=== PATIENT | female | born 1995 | race Caucasian/White ===

== ENCOUNTER → 2017-07-13 10:43 | Outpatient (CLI) | payer OTHER, SELFPAY ==
[2017-07-13 13:05] LABS: Amphetamine Urine VISTA NEGATIVE (<1000 ng/mL); Barbiturate Urine VISTA NEGATIVE (< 200 ng/mL); Benzodiazepine Urine VISTA NEGATIVE (< 200 ng/mL); Cocaine Urine VISTA NEGATIVE (< 300 ng/mL); Ecstacy Urine VISTA NEGATIVE (< 500 ng/mL); Methadone Urine VISTA NEGATIVE (< 300 ng/mL); PCP Urine VISTA NEGATIVE (< 25 ng/mL); THC Urine VISTA NEGATIVE (< 50 ng/mL); Vista UDS pH Range 6
== END ==
PROVIDERS: Family Provider Family Medicine; PCP Family Medicine; Visit Provider Family Medicine
DX: Z02.83 Encounter for blood-alcohol and blood-drug test (principal)
CPT/HCPCS: 80307

== ENCOUNTER → 2018-04-15 16:43 | Outpatient (CLI) | payer BC, SELFPAY ==
--- NOTE | 2018-04-15 16:47 | CT_ITS ---
STUDY: CT ABDOMEN AND PELVIS WITH CONTRAST REASON FOR EXAM: Female, 23 years old. Pain, lump in abdominal abdomen near the umbilicus. Diarrhea. Family history of stomach cancer. RADIATION DOSAGE (If Supplied By Facility): CTDIvol = ( 8.76 ) mGy, DLP = ( 279.28 ) mGycm TECHNIQUE: Transaxial 3.75 mm images were obtained from the dome of the diaphragm to the symphysis pubis with oral contrast. 100 ml of Isovue 300 contrast was administered. Sagittal and coronal images were reconstructed. Individualized dose optimization techniques were used for this CT. COMPARISON: Limited abdominal ultrasound 07/16/2015 FINDINGS: The visualized lung bases are unremarkable. The visualized portions of the heart are within normal limits. There is a left paraumbilical midline anterior abdominal wall lipoma of 1.2 x 3.9 x 2.7 cm causing a convex wall of the abdomen. This is superior to the umbilicus. Normal liver. Normal gallbladder and extrahepatic biliary system. Normal spleen. Normal pancreas. Normal bilateral adrenal glands. Normal right kidney. Normal left kidney. Normal visualized stomach. Normal small intestine. Normal colon. The appendix is visualized and appears normal. Normal abdominal aorta. Normal inferior vena cava. Normal retroperitoneum. Normal urinary bladder. There is a low-attenuation in the right vaginal wall likely a cyst with bilobed contour measuring 1.1 x 1.3 x 2.3 cm. Otherwise normal abdominal wall. Normal osseous structures. CT/Abdomen/Pelvis WITH Contrast IMPRESSION: Lipoma of the anterior left para midline supraumbilical abdominal wall with convex contour. No evidence of malignancy. There is a vaginal cyst. Electronically Signed: Aye Knox MD at 7:06 EST , Service support ,
--- OUTSIDE RECORDS SUMMARY | 2018-05-28 16:04 | XMS RPT_ITS ---
:1995 Author Organization OH[facility] Care Team Providers Name Role Phone Adilene Alegria Attending Unavailable Adilene Alegria Referring Unavailable MalPhu draper Primary Care Unavailable DOCTOR, OUT OF TOWN Attending Unavailable Phu Figueroa Primary Care Unavailable Phu Figueroa Attending Unavailable Malys, Phu Primary Care Unavailable Malbonny, Phu Attending Unavailable Malys, Phu Referring Unavailable Malys, Phu Primary Care Unavailable KathiAdilene wills Attending Unavailable Malys, Phu Referring Unavailable PROBLEMS PROBLEMS DATE TYPE CONDITION / CODE ATTENDING STATUS SOURCE 04/29/2018 Unknown Z12.4 - Encounter Marcpearl, Active [place] for screening for [facility] malignant neoplasm Hospital of cervix / Repository Z12.4(ICD-10) 04/29/2018 Unknown A64 - Unspecified Marcanthony, Active [place] sexually [facility] transmitted disease Hospital / A64(ICD-10) Repository 04/29/2018 Unknown Z01.419 - Encounter Marcanthjohann, Active [place] for gynecological [facility] examination [facility] (general) (routine) Repository without abnormal findings / Z01.419(ICD-10) 05/06/2018 Unknown R10.9 - Unspecified Malbonny, Phu Active [place] abdominal pain / Community R10.9(ICD-10) Hospital Repository 07/13/2017 Unknown Z02.83 - Encounter Henry, Phu Active [place] for blood-alcohol Community and blood-drug test Hospital / Z02.83(ICD-10) Repository PROCEDURES PROCEDURES No Procedure Records FoundRESULTS RESULTS EQUITIES TRADER OFFICE VISIT Observed: 04/29/2018 Status: F Source: [place] REPORT 10:27 AM [facility] REPOSITORY [facility] [address] [place] [address]. [address] [place] [address] OFFICE VISIT Date of Service: 04/29/18 MR#: [id number] Acct: [id number] Name: ROBBYRAFAT SYKESLeonor Dyer Rep #: [id number] : 1995 Provider: Adilene Alegria MD Age/Sex: 23/F Location: [facility] Status: Signed Intake Vital Signs04/29/18 Height 5 ft 5 in 04/29/18 Weight: 118 lb 04/29/18 Body Mass Index (BMI) 19.6 04/29/18 Blood Pressure 108/62 Intake Visit Reasons: ANNUAL Nut Feeder Required: No Is patient in pain?: No Allergies Penicillins Allergy (Verified 04/29/18 09:48) Rash Medications Multivitamins,Therapeutic [Multivitamin] 1 tab PO DAILY 08/25/14 [History Confirmed 04/29/18] norgestimate 0.25 mg-ethinyl estradiol 35 mcg tablet 1 tab PO DAILY #84 tab 04/29/18 [Rx Confirmed 04/29/18] propranolol 10 mg tablet 10 mg PO .prn tab 04/29/18 [History Confirmed 04/29/18] sertraline 25 mg tablet 25 mg PO DAILY 04/29/18 [History Confirmed 04/29/18] Is last menstrual period known: Yes Last Menstral Period: 04/08/18 Post menopausal: No Patient : No : No Nurse's Note: Pt. states she had a CAT scan done and it showed a vaginal cyst. [facility] Medical History Anxiety (Acute) Lymphoma (Acute) Family History Mother Cancer Stomach Social History Smoking Status: Never smoker HPI ANNUAL: Details: YAIR MCCULLOUGH is a 23 year old who presents for annual exam. 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 Last PAP: none History of abnormal PAP: no Last mammogram: History of abnormal mammogram: Colon cancer screening: Other preventative health care screenings: phu figueroa pcp Female Reproductive History Last Menstral Period: 04/08/18 Cycle Length: 21-35 Bleeding Duration: 5 Questions: Metorrhagia: No, Sexually active: Yes, Dyspareunia: No, PCB: No ROS Const Constitutional: Reports as per HPI; denies poor appetite, fatigue, increased appetite, weight gain or weight loss Cardio Card: Denies chest pain Resp Resp: Denies dyspnea or cough GI GI: Reports as per HPI; denies bloating, abdominal pain, constipation, vomiting or nausea : Reports as per HPI and other; denies blood in urine, vaginal odor, vaginal itching, vaginal dryness, vaginal discharge, urinary urgency, urinary incontinence, urinary frequency, pelvic pain, painful urination, difficulty urinating, prolapse symptoms or nipple discharge Skin Skin/Breast: Denies breast pain, breast skin changes, nipple discharge, breast lump or changing lesions Exam Const General: cooperative, healthy appearing, comfortable, no acute distress, well developed, well groomed HENIL Head: normal to inspection, normocephalic Ears: hearing grossly normal bilaterally, external ears normal Nose: external nose normal Face and sinus: normal facial exam Neck Neck: normal visual inspection, full ROM, no lymphadenopathy Thyroid: thyroid normal Chest Chest palpation AND inspection: normal inspection of the chest Breast inspection: normal inspection of the breasts, normal inspection of the axillae Breast palpation: normal palpation of the breasts, normal palpation of the axillae, no axillary lymphadenopathy Resp Effort AND Inspection: normal respiratory effort GI Inspection: normal to inspection, non-distended Palpation: no guarding, soft, no hepatosplenomegaly General: bladder normal to palpation External Female Exam: normal external appearance, normal appearance of the urethra, no lesions Urethra: normal appearance of the urethra, normal palpation Speculum Exam - Vagina: normal appearance of the vagina, normal vaginal discharge Speculum Exam - Cervix: normal appearance of the cervix, no cervical discharge, no lesions, nontender Bimanual Exam- Vagina AND Uterus: No cervical tenderness, normal bimanual exam, uterine size normal, bladder normal to palpation, uterine mobility normal, uterine consistency normal, uterus non-tender, no cervical motion tenderness Bimanual Exam- Adnexa, other: normal adnexae, no adnexal masses, adnexae non-tender Skin General: no rashes or lesions noted Neuro General: alert, moves all extremities, no focal motor deficits Extrem General: no pedal edema, normal to inspection Psych Appearance: grossly normal Mental Status: mental status grossly normal Affect: normal affect Speech and Movement: speech and movement normal Attitude: cooperative Assessment AND Plan Problems 1. Encounter for gynecological examination without abnormal finding Z01.419 Plan Cervical cancer screening: pap Breast cancer screening: clinical STD prevention and contraceptive options including their risks, benefits, and alternatives were reviewed with the patient and she chooses: gc chlamydia Encouraged maintenance of a healthy weight and active lifestyle and handout given. Calcium/vitamin D recommendations provided. Annual exam handout including recommendations for good health guidelines and basic screening information given. Problem list up to date, see problem list details for any additional plan information. follow up in one year for annual health maintenance exam or sooner if needed. Medications Refilled: Coding Level of Care Code Off vis,new,prev 18-39yrs Diagnoses Encounter for gynecological examination without abnormal finding Z01.419 Gynecological examination findings: abnormal findings ABSENT 04/29/18 1027 <Electronically signed by Adilene Alegria MD> Date [facility]leg[facility] Signature: Date (if applicable) CC: PAP I-G W/RFX Collected: 04/29/2018 Status: F Source: [place] HRHPV-APTIMA 9:30 AM [facility] REPOSIT[facility] Order Comment: CYTOLOGY INFORMATION: - CLINICAL INFORMATION: ANNUAL - DATE LMP/MENOPAUSE: N/A - COLLECTION VIAL: Thin Prep Vial - 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 of containers..01 ThinPrep Vial TYPE CODE TESTS RESULT OUT OF RANGE REFERENCE UNITS LAB L7400.0800 . Normal DIAGN Comment Result Comment: NEGATIVE FOR INTRAEPITHELIAL LESION AND MALIGNANCY. LAB L7400.0900 . Normal ADEQ Comment Result Comment: Satisfactory for evaluation. No endocervical component is identified. LAB L7400.1400 . Normal PERFORM Comment Result Comment: Stephie Davalos, Material Disposition Inspector (ASCP) LAB L7400.2575 . Normal TEST METHOD Comment Result Comment: This liquid based ThinPrep(R) pap test was screened with the use of an image guided system. LAB L7400.2600 . Normal . COMM LAB L7400.2700 . Normal PAPSMR Comment Result Comment: The Pap smear is a screening test designed to aid in the detection of premalignant and malignant conditions of the uterine cervix. It is not a diagnostic procedure and should not be used as the sole means of detecting cervical cancer. Both false-positive and false-negative reports do occur. LAB L7400.2800 . Normal HPV RFLX Comment Result Comment: The HPV DNA reflex criteria were not met with this specimen result therefore, no HPV testing was performed. Performed at: [facility] [id number] Procurement Consultant: Cristal Guillory MD, Phone: [phone] Performed By: #### L7400.0353 #### [facility] (refer to report for specific site) refer to report for address and phone number CT/NG [facility] BY PCR Collected: 04/29/2018 Status: F Source: [place] 12:00 AM [facility]POSIT[facility] TYPE CODE TESTS RESULT OUT OF RANGE REFERENCE UNITS LAB L8200.2100 Negative Normal Chlam Negative Trac PCR LAB L8200.2200 Negative Normal NG by Negative PCR Performed By: #### L8200.1999 #### [facility] [address] [place], [address] ABDOMEN/PELVIS WITH Observed: 04/15/2018 Status: F Source: [place] CONTRAST 4:47 PM [facility] RE[facility]IT[facility] [address] [place] [address] Abdomen/Pelvis WITH Contrast MR#: [id number] Acct: [id number] Name: YAIR MCCULLOUGH Rep #: [id number] : 1995 F 23 From: Aye Knox MD PCP: Phu Figueroa DO Status: REG CLI Study: Abdomen/Pelvis WITH Contrast Date of Exam: 04/15/18 Exam# [id number] Ordering Dr: Phu Figueroa DO STUDY: CT ABDOMEN AND PELVIS WITH CONTRAST REASON FOR EXAM: Female, 23 years old. Pain, lump in abdominal abdomen near the umbilicus. Diarrhea. Family history of stomach cancer. RADIATION DOSAGE (If Supplied By Facility): CTDIvol = ( 8.76 ) mGy, DLP = ( 279.28 ) mGycm TECHNIQUE: Transaxial 3.75 mm images were obtained from the dome of the diaphragm to the symphysis pubis with oral contrast. 100 ml of Isovue 300 contrast was administered. Sagittal and coronal images were reconstructed. Individualized dose optimization techniques were used for this CT. COMPARISON: Limited abdominal ultrasound 07/16/2015 FINDINGS: The visualized lung bases are unremarkable. The visualized portions of the heart are within normal limits. There is a left paraumbilical midline anterior abdominal wall lipoma of 1.2 x 3.9 x 2.7 cm causing a convex wall of the abdomen. This is superior to the umbilicus. Normal liver. Normal gallbladder and extrahepatic biliary system. Normal spleen. Normal pancreas. Normal bilateral adrenal glands. Normal right kidney. Normal left kidney. Normal visualized stomach. Normal small intestine. Normal colon. The appendix is visualized and appears normal. Normal abdominal aorta. Normal inferior vena cava. Normal retroperitoneum. Normal urinary bladder. There is a low-attenuation in the right vaginal wall likely a cyst with bilobed contour measuring 1.1 x 1.3 x 2.3 cm. Otherwise normal abdominal wall. Normal osseous structures. CT/Abdomen/Pelvis WITH Contrast IMPRESSION: Lipoma of the anterior left para midline supraumbilical abdominal wall with convex contour. No evidence of malignancy. There is a vaginal cyst. Electronically Signed: Aye Knox MD at 7:06 EST , Service support , CC: Phu Figueroa DO Record Maker: Signed URINE DRUG SCREEN Collected: 07/13/2017 Status: F Source: CAR[place] (STEPH) 10:46 AM [facility] Order Comment: List of Drugs Taken or Suspected? [facility] TYPE CODE TESTS RESULT OUT OF RANGE REFERENCE UNITS LAB L505.0075 TO BE Normal CONFIRMED Result Comment: CONFIRMATORY TESTING FOR ALL POSITIVE URINE DRUG SCREEN RESULTS WILL ONLY BE SENT OUT UPON PHYSICIAN ORDER. VISTA Urine Drug Screen methods provide only preliminary analytical test results. A more specific alternate chemical method must be used in order to obtain a confirmed analytical result. Gas chromatography/mass spectrometery (GC/MS) is the preferred confirmatory method. Clinical consideration and professional judgement should be applied to any drug of abuse test result, particularly when preliminary positive results are used. URINE TCA TESTING MUST BE ORDERED SEPARATELY. USE TEST MNEMONIC: [facility] LAB L505.5005 VISTA UDS PH 6 Normal LAB L505.5015 <1000 ng/mL AMPHETAMINES Normal NEGATIVE LAB L505.5025 < 200 ng/mL BARBITIURATES Normal NEGATIVE LAB L505.5035 < 200 ng/mL BENZODIAZIPINE Normal NEGATIVE LAB L505.5045 < 300 ng/mL COCAINE Normal NEGATIVE LAB L505.5055 < 500 ng/mL ECSTACY Normal NEGATIVE LAB L505.5065 < 300 ng/mL METHADONE Normal NEGATIVE LAB L505.5075 < 300 ng/mL OPIATES Normal NEGATIVE LAB L505.5085 < 25 ng/mL PCP Normal NEGATIVE LAB L505.5095 < 50 ng/mL THC Normal NEGATIVE Performed By: #### L505.5000 #### [facility] [place], [address] OBSOLETE Observed: 05/10/2017 Status: COMPLETED Source: [place] 12:00 AM [facility] REPOSITORY Refill (WOOB) YAIR MCCULLOUGH ([id number]) 1995 F Date Time Provider Department 05/10/17 CURT THOMPSON ([place]) [facility]ST During your visit today, we recorded the following information about you: Michelle Hill LPN 05/10/2017 2:45 PM Signed Pt's mother calling and reporting that she needs an updated script for her daughter's ocp [facility]. When pt was in last visit the rx was sent to a local pharmacy. Pt needing a 90d supply please review and advise. Michelle THOMPSON CNP 05/10/2017 3:42 PM Signed Order sent Allergies As of Date: 05/10/2017 Noted Allergy Reaction PENICILLINS 07/11/2013 4 - Hives SEASONAL ALLERGIES 07/11/2013 14 - Other: See Comments Comments: Nasal congestion Date Reviewed: 11/23/2016 Reviewed by: Johanne Vail) Rocio - Fully Assessed Reason for Visit: Refill Request [94] Visit Diagnosis:General counseling for prescription of oral contraceptives [Z30.09] Order(s):norgestimate 0.25 mg-ethinyl estradiol 35 mcg (SPRINTEC) 0.25-35 mg-mcg per tabletTake 1 tablet by mouth once daily.Disp: 3 PackageRfl: 3 Prescriptions as of 05/10/2017 Sig: NORGESTIMATE 0.25 MG-ETHINYL * Take 1 tablet by mouth once d* MULTIVITAMIN ORAL Take by mouth. ZYRTEC ORAL Take by mouth. LORAZEPAM 1 MG TABLET Take one tab 30 minutes prior* Problem List As Of Date 05/10/2017 Noted Resolved Breast lump [N63.0] INVALID FOR*11/23/2016 Prescriptions ordered this encounter Disp Refills Start End NORGESTIMATE 0.25 MG-ETHINYL ESTRADI* 3 Pa* 3 05/10/2017 Route: ORAL Sig: Take 1 tablet by mouth once daily. Medications Discontinued During This Encounter norgestimate 0.25 mg-ethinyl estradi* 3 Pa* 3 11/23/2016 05/10/2017 Route: ORAL Sig: Take 1 tablet by mouth once daily. Disc: Reason for discontinue is not on file. Encounter Status:Closed by CURT THOMPSON on 05/10/17 ALLERGIES ALLERGIES DATE TYPE / CODE NAME / CODE REACTION SEVERITY SOURCE 04/29/2018 Drug Penicillins/ Rash Unknown [facility] Allergy/4160 [id number](R Hospital [address](SNOMED XNORM) Repository CT) ENCOUNTERS ENCOUNTERS ADMIT/DISCHARGE ACCOUNT ADMITTING ENCOUNTER LOCATION SOURCE NUMBER CLASS 04/29/2018 [id number] Ambulatory [place] 0 [facility] ing:LABSPEC Repository 04/29/2018/ [id number] Ambulatory BMSBuilding:B [place] 8 5 MS.[facility] Repository 04/15/2018 [id number] Ambulatory [place] 2 [facility] ing:CT Repository 03/25/2018 [id number] Ambulatory [place] 8 [facility] ing:MASS Repository 07/13/2017 [id number] Ambulatory [place] 7 [facility] ing:BFHLAB Repository PAYERS PAYERS ENCOUNTER GUARANTOR PAYER SUBSCRIBER SOURCE 04/29/2018 YAIR BUSTAMANTERERDOB: [place] [id number] [id number] Number: [place], [place] [id number] Repository [address]Mxw: [phone]) Date:[id number] [phone] () [address], [place] [address]NT: 04/29/2018 Secondary NOT GIVENUNK [place] Insurance:SELF PAY [facility] Number: Effective Repository Date:2018-04-29 04/29/2018 YAIR Dyer Primary RHINA ZERRERDOB: [place] [id number] Insurance:[employer]HE[employer]olic [id number] Number: [place], [place] [id number] Repository [address]Czm: [phone]) Date:[id number] [phone] () [place], [place] [address]EK: 04/29/2018 Secondary NOT GIVENUNK [place] Insurance:SELF PAY [facility] Number: Effective Repository Date:2018-04-29 04/15/2018 YAIR Dyer Primary RHINA L [place] [id number] Insurance:[place] PPO ZERRERDOB: [facility] Number: [id number] [id number] Repository [address]Mxq: ([phone]) Date:2018-04-01.O. [phone] () [address] GYPSY [address]HB: 04/15/2018 Secondary NOT GIVENUNK [place] Insurance:SELF PAY [facility] Number: Effective Repository Date:2018-04-01 03/25/2018 YAIR Dyer Primary NOT GIVENUNK [place] [id number] Insurance:SELF PAY [place] Number: Effective Repository [phone]: ([phone]) Date:2016-05-18 [phone] () 07/13/2017 Rhina L Primary Rhina L [place] [id number] Insurance:[place] PPO ZerrerDOB: [facility] Number: [id number] [id number] Repository [address]Sao: [phone]) Date:2017-07-13P.O. [phone] (HP) [address] GYPSY [address]CH: 07/13/2017 Secondary NOT GIVENUNK [place] Insurance:SELF PAY [facility] Effective Repository Date:2017-07-13
== END ==
PROVIDERS: Family Provider Family Medicine; PCP Family Medicine; Referring Provider Family Medicine; Visit Provider Family Medicine
DX: R10.9 Unspecified abdominal pain (principal); R10.2 Pelvic and perineal pain; R19.05 Periumbilic swelling, mass or lump; R19.7 Diarrhea, unspecified
CPT/HCPCS: 74177; Q9967

== ENCOUNTER → 2018-04-29 17:10 | Outpatient (CLI) | payer BC, SELFPAY ==
[2018-04-29 09:47] VITALS: BMI 19.6
[2018-04-29 20:19] LABS: Chlamydia Trachomatis by PCR Negative (Negative); Neisserai gonorrhoeae by PCR Negative (Negative); Probe Check PASS; Sample Adequacy Control PASS; Specimen Processing Control PASS
[2018-05-01 15:39] LABS: HPV Reflexed? NOT INDICATED
--- OUTSIDE RECORDS SUMMARY | 2018-06-16 02:22 | XMS RPT_ITS ---
:1995 Author Organization OHIP Care Team Providers Name Role Phone Adilene Alegria Attending Unavailable Adilene Alegria Referring Unavailable MalPhu draper Primary Care Unavailable DOCTOR, OUT OF TOWN Attending Unavailable Phu Sweeney Primary Care Unavailable Phu Sweeney Attending Unavailable Malys, Phu Primary Care Unavailable Malbonny, Phu Attending Unavailable Malys, Phu Referring Unavailable Malys, Phu Primary Care Unavailable KathiAdilene wills Attending Unavailable Malys, Phu Referring Unavailable PROBLEMS PROBLEMS DATE TYPE CONDITION / CODE ATTENDING STATUS SOURCE 04/29/2018 Unknown Z12.4 - Encounter Marcpearl, Active [place] for screening for [facility] malignant neoplasm Hospital of cervix / Repository Z12.4(ICD-10) 04/29/2018 Unknown A64 - Unspecified Marcanthony, Active [place] sexually [facility] transmitted disease Hospital / A64(ICD-10) Repository 04/29/2018 Unknown Z01.419 - Encounter Marcanthjohann, Active [place] for gynecological [facility] examination [facility] (general) (routine) Repository without abnormal findings / Z01.419(ICD-10) 05/08/2018 Unknown R10.9 - Unspecified Malbonny, Phu Active [place] abdominal pain / Community R10.9(ICD-10) Hospital Repository 07/13/2017 Unknown Z02.83 - Encounter Henry, Phu Active [place] for blood-alcohol Community and blood-drug test Hospital / Z02.83(ICD-10) Repository PROCEDURES PROCEDURES No Procedure Records FoundRESULTS RESULTS 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 [address] [place] [address] OFFICE VISIT Date of Service: 04/29/18 MR#: [id number] Acct: [id number] Name: ROBBYONELYAIR M Rep #: [id number] : 1995 Provider: Adilene Algeria MD Age/Sex: 23/F Location: [facility] Status: Signed Intake Vital Signs04/29/18 Height 5 ft 5 in 04/29/18 Weight: 118 lb 04/29/18 Body Mass Index (BMI) 19.6 04/29/18 Blood Pressure 108/62 Intake Visit Reasons: ANNUAL Internet Sales Director Required: No Is patient in pain?: No [...] done and it showed a vaginal cyst. [facility] Medical History Anxiety (Acute) Lymphoma (Acute) Family History Mother Cancer Stomach Social History Smoking Status: Never smoker HPI ANNUAL: Details: YAIR MCCULLOUGH is a 23 year old who presents for annual exam. 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 Last PAP: none History of abnormal PAP: no Last mammogram: History of abnormal mammogram: Colon cancer screening: Other preventative health care screenings: phu sweeney pcp Female Reproductive History Last Menstral Period: [...] no acute distress, well developed, well groomed HENDC Head: normal to inspection, normocephalic Ears: hearing [...] Adilene Alegria MD> Date [facility] Signature: Date (if applicable) CC: PAP I-G W/RFX Collected: 04/29/2018 Status: F Source: CARMEN HRHPV-APTIMA 9:30 AM [facility] REPOSITORY Order Comment: CYTOLOGY INFORMATION: - CLINICAL INFORMATION: ANNUAL - DATE LMP/MENOPAUSE: N/A - COLLECTION VIAL: Thin Prep Vial - 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 of containers..01 ThinPrep Vial TYPE CODE TESTS RESULT OUT OF RANGE REFERENCE UNITS LAB L7400.0800 . Normal DIAGN Comment Result Comment: NEGATIVE FOR INTRAEPITHELIAL LESION AND MALIGNANCY. LAB L7400.0900 . Normal ADEQ Comment Result Comment: Satisfactory for evaluation. No endocervical component is identified. LAB L7400.1400 . Normal PERFORM Comment Result Comment: Stephie Davalos, Administrative Services Coordinator (ASCP) LAB L7400.2575 . Normal TEST METHOD [...] no HPV testing was performed. Performed at: [facility] [id number] Hydrologist: Cristal Guillory MD, Phone: [phone] Performed By: #### L7400.0353 #### [facility] (refer to report for specific site) refer to report for address and phone number CT/NG [facility] BY PCR Collected: 04/29/2018 Status: F Source: CARMEN 12:00 AM [facility] REPOSITORY TYPE CODE TESTS RESULT OUT OF RANGE REFERENCE UNITS LAB L8200.2100 Negative Normal Chlam Negative Trac PCR LAB L8200.2200 Negative Normal NG by Negative PCR Performed By: #### L8200.1999 #### [facility] [address] [place], [address] ABDOMEN/PELVIS WITH Observed: 04/15/2018 Status: F Source: [place] CONTRAST 4:47 PM [facility] REPOSITORY [facility] Imaging Services [address] [place] [address] Abdomen/Pelvis WITH Contrast MR#: [id number] Acct: [id number] Name: YAIR MCCULLOUGH Rep #: [id number] : 1995 F 23 From: Aye Knox MD PCP: Phu Sweeney DO Status: REG CLI Study: Abdomen/Pelvis WITH Contrast Date of Exam: 04/15/18 Exam# [id number] Ordering Dr: Phu Sweeney DO STUDY: CT ABDOMEN AND PELVIS WITH [...] EST , Service support , CC: Phu Sweeney DO Dynamite Reclaimer: Signed URINE DRUG SCREEN Collected: 07/13/2017 Status: F Source: CARMEN (STEPH) 10:46 AM [facility] REPOSITORY Order Comment: List of Drugs Taken or Suspected? [facility] TYPE CODE TESTS RESULT OUT OF RANGE [...] Normal NEGATIVE Performed By: #### L505.5000 #### [facility] [address] [place], [address] ALLERGIES ALLERGIES DATE TYPE / CODE NAME / CODE REACTION SEVERITY SOURCE 04/29/2018 Drug Penicillins/ Rash Unknown [facility] Allergy/4160 [id number](R Hospital 88480(SNOMED XNORM) Repository CT) ENCOUNTERS ENCOUNTERS ADMIT/DISCHARGE ACCOUNT ADMITTING ENCOUNTER LOCATION SOURCE NUMBER CLASS 04/29/2018 [id number] [place]ulatory [place] 0 [facility] ing:LABSPEC Repository 04/29/2018/ [id number] Ambulatory BMSBuilding:B [place] 8 [address] [facility] Repository 04/15/2018 [id number] Ambulatory [place] 2 [facility] ing:CT Repository 03/25/2018 [id number] Ambulatory [place] 8 [facility] ing:MASS Repository 07/13/2017 [id number] Ambulatory [place] 7 [facility] ing:BFHLAB Repository PAYERS PAYERS ENCOUNTER GUARANTOR PAYER SUBSCRIBER SOURCE 04/29/2018 YAIR Dyer Primary RHINA ZERRERDOB: [place] [id number] Insurance:ANTHEMPolic [id number] [facility] Number: [place], [place] [id number] Repository [address]Roc: (330) Date:8017-11-87AO [phone] () [id number], [place] [address]HM: 04/29/2018 Secondary NOT GIVENUNK [place] Insurance:SELF PAY [facility] Number: Effective Repository Date:2018-04-29 04/29/2018 YAIR Dyer Primary RHINA ZERRERDOB: [place] [id number] Insurance:ANTHEMPolic [id number] Community [facility] y Number: [place], [place] [id number] Repository [address]Sil: (330) Date:0134-77-23SN [phone] () [id number] [place] [address]: 04/29/2018 Secondary NOT GIVENUNK [place] Insurance:SELF PAY [facility] Number: Effective Repository Date:2018-04-29 04/15/2018 YAIR Dyer Primary RHINA L [place] [id number] Insurance:ANTHEMPolic ZERRERDOB: [facility] [place] y [id number] [id number] Repository [address]Ydj: (330) Date:3908-33-30XS [phone] () [id number], [place] [address]HC: 04/15/2018 Secondary NOT GIVENUNK [place] Insurance:SELF PAY [facility] Number: Effective Repository Date:2018-04-01 03/25/2018 YAIR Dyer Primary NOT GIVENUNK [place] [id number] Insurance:SELF PAY [place] Number: Effective Repository [phone]: (330) Date:2016-05-18 [phone] () 07/13/2017 Rhina L Primary Rhina L [place] [id number] Insurance:OHIO PPO ZerrerDOB: [facility] Number: [id number] [id number] Repository [address]Qwn: (330) Date:2017-07-13[address] [phone] () [address] SID [id number]: 07/13/2017 Secondary NOT GIVENUNK [place] Insurance:SELF PAY [facility] Number: Effective Repository Date:2017-07-13
== END ==
PROVIDERS: Family Provider Family Medicine; PCP Family Medicine; Referring Provider Obstetrics & Gynecology; Visit Provider Obstetrics & Gynecology
DX: A64 Unspecified sexually transmitted disease (principal); Z12.4 Encounter for screening for malignant neoplasm of cervix
CPT/HCPCS: 87491; 87591; 87624; 88175; G0145

== ENCOUNTER → 2019-01-14 | Outpatient (CLI) | payer BC, SELFPAY ==
[2018-08-09 06:19] VITALS: BMI 19.6
== END | disposition home or self-care (01) ==
LOC: PSN 13:50
PROVIDERS: Family Provider Family Medicine; PCP Family Medicine; Referring Provider Family Medicine; Visit Provider Family Medicine
DX: R00.2 Palpitations (principal)
CPT/HCPCS: 93225; 93226

== ENCOUNTER 2019-10-07 10:07 | Day surgery (SDC) | payer BC, SELFPAY ==
--- NOTE | 2019-10-01 02:44 | HP_ITS ---
Intake Vital Signs 10/01/19 Height 5 ft 5 in 10/01/19 Weight: 126 lb 10/01/19 BMI 20.9 10/01/19 BP 137/77 H 10/01/19 Blood Pressure Location Rt brachial 10/01/19 Position Sitting 10/01/19 Respiration 16 Intake Visit Reasons: ABDOMINAL LIPOMA Chief Complaint: Right eye redness Mcat Instructor Required: No Is patient in pain?: No Allergies Penicillins Allergy (Verified 10/01/19 14:35) Rash Medications Multivitamins,Therapeutic [Multivitamin] 1 tab PO DAILY 08/25/14 [History Confirmed 10/01/19] propranolol 10 mg tablet 10 mg PO .prn tab 04/29/18 [History Confirmed 10/01/19] sertraline 25 mg tablet 25 mg PO DAILY 04/29/18 [History Confirmed 10/01/19] polymyxin B sulfate 10,000 unit-trimethoprim 1 mg/mL eye drops 1 drp OPHTHALMIC Q3H #5 ml 08/09/18 [Rx Confirmed 10/01/19] norgestimate 0.25 mg-ethinyl estradiol 35 mcg tablet 1 tab PO DAILY #84 tab 06/11/19 [Rx Confirmed 10/01/19] PFSH Medical History Anxiety (Acute) Back pain (Acute) Chest pain (Acute) Hemorrhoids (Acute) Lymphoma (Acute) Neck pain (Acute) Shoulder pain (Acute) Surgical History History of breast biopsy (Acute) Family History Mother Cancer stomach cancer Social History (Updated 10/01/19 @ 16:[address] Colby Adair MD) Smoking Status: Never smoker alcohol intake: current details: social substance use type: does not use caffeine: Yes what type of physical activity do you participate in: walking seatbelt use: always do you feel safe at home: Yes additional social history: [employer] Patient works at [employer] HPI HPI HPI: YAIR MCCULLOUGH, is a 24 F who presents to the office today for HPI HPI Surgical H&P: Yes HPI: YAIR MCCULLOUGH, is a 24 F who presents to the office today for Painful lump on her abdominal wall. Patient has had a subcutaneous lesion superior and lateral to her umbilicus area for many years. It is been increasing in size and has been giving her more discomfort. She cannot recall any trauma to the area. She has had a CAT scan which confirmed that this appears to be a subcutaneous fatty lesion back in 2016. Exam Const General: no acute distress, well developed, well hydrated Orientation: oriented to person, oriented to place, oriented to time [facility] Head: normocephalic, atraumatic Ears: external ears normal Mouth: moist mucous membranes Eyes Sclera: sclerae normal Pupils: normal by confrontation Neck Neck: no lymphadenopathy noted Neck mass: No Thyroid: thyroid normal, symmetrical Chest Chest palpation & inspection: normal inspection of the chest Resp Effort & Inspection: normal respiratory effort Auscultation: clear to auscultation bilaterally Percussion: percussion normal Cardio Rate: regular rate Rhythm: regular rhythm GI Palpation: soft, no hepatosplenomegaly, no masses, nontender Rectal Exam: other Other: Rectal exam deferred. Skin Other: Superior to the umbilicus and just slightly left of the midline is a 3 cm soft subcutaneous lesion does not have any aggressively hard features the overlying skin all appears normal. It is slightly movable but not easily movable. It is nontender to touch. Extrem General: normal to inspection, no clubbing, cyanosis or edema Assessment & Plan Problems 1. Lesion of subcutaneous tissue L98.9 Plan Plan is to excise this Lesion of subcutaneous tissue in the OR. This will be done under local MAC. Patient understands the bleeding infection of the To most likely complications. Blood clots heart attacks pneumonias and strokes also risk but not likely in her age group. She also understands it there is a chance that recurrence of a lipoma or subcutaneous lesion can occur in this area.All questions asked were answered and she is willing to proceed. Coding Level of Care Code Off vis,new,level 3 Diagnoses Lesion of subcutaneous tissue L98.9 10/01/19 1610 <Electronically signed by Colby tan MD> Date _ Colby Adair MD
[2019-10-01 14:36] VITALS: BMI 20.9
[2019-10-07] VITALS (7 sets, daily range): BP systolic 94–117; BP diastolic 54–69; PULSE 74–85; RESP 15–16; TEMP 36.1–36.4; O2SAT 100; BMI 21.1
[2019-10-07 10:30] LABS: Internal QC Validated? YES +Cl - CLEAR BKGD; Pregnancy, Urine Negative Negative
[2019-10-07] MEDS: Lactated Ringers 1,000 ML 100 ML IV (10:43)
[2019-10-07] MEDS: Bupivacaine Mpf 0.5% 30 ML VIAL (11:47)
--- NOTE | 2019-10-07 11:58 | PCM.OPRPT ---
Problem List (1) Lesion of subcutaneous tissue Status: Acute Report of Operation Date of Procedure: 10/07/19 Pre-Operative Diagnosis: Lesion of subcutaneous tissue of abdomen Post-Operative Diagnosis: Same Surgery/Procedure Performed:: Excision of a 6.5 cm x 4 cm subcutaneous lesion to subcutaneous tissues of abdominal wall Type of Anesthesia:: Local MAC Anesthesiologist: Waldo Burgos Specimen's removed: 6.5 x 4 cm subcutaneous tissue Estimated Blood Loss (mL): < 25 cc Fluids Replaced: 400 cc LR Description of Procedure: Patient was brought into the operating room. Placed in the supine position. Under excellent MAC anesthetic the abdomen was sterilely prepped and draped in usual fashion. Local was injected. A 3 cm incision was made. Dissection was carried down to the subcutaneous fatty lesion. I remove this in its entirety and sent it to pathology for permanent sectioning. I had good hemostasis. The subcutaneous tissue was brought together with deep dermal stitches of 3-0 Vicryl and then finally a running 4-0 Monocryl. Dermabond was applied sterile dressings were applied and the patient tolerated the procedure well. - Admit VTE Documentation VTE Present on Admission: No VTE Mechan Device Prophylaxis: SCD's VTE Pharm Prophylaxis ordered?: No Reason prophylaxis not ordered:: Treatment Not Indicated 20xxx-29xxx: [id number] Exc abdl zechariah deep < 5 cm
--- NOTE | 2019-10-07 12:01 | PCM.DC.GS ---
Discharge Diet: Light diet - advance as tolerated - If you have questions about your diet instructions, please talk to your doctor. Discharge Activity: May Not Drive - for 1 week or while taking narcotic pain medicine. May shower in (days): 1 Lifting Restrictions: 10 pounds Call your doctor if your incision/area has: Continuous Slow Oozing, Sudden Increased Bleeding, Increased Pain/ Swelling, Increased Redness, Foul Smelling Discharge Call your doctor if you observe: Fever of 101 or Higher Suture Line Care: Avoid Pulling/Pushing, Avoid Pinching/Bending Additional Dressing/Incision Instructions:: Change or remove dressing in 4 days. Leave steri-strips in place for 1 week. Allergies/Adverse Reactions: Allergies Penicillins Allergy (Verified 10/07/19 10:29) Rash Medications to take at Discharge Norgestimate-Ethinyl Estradiol [Sprintec 28 Day Tablet] 1 ea PO DAILY 10/03/19 Venlafaxine HCl 37.5 mg PO DAILY 10/03/19 Oxycodone HCl/Acetaminophen [Percocet 5/325] 1 - 2 tablet PO Q4H PRN PRN 6 Days #15 tablet 10/07/19 The following prescriptions were given: Oxycodone HCl/Acetaminophen [Percocet 5/325] 1 - 2 tablet PO Q4H PRN PRN 6 Days #15 tablet PRN Reason: Pain Transmission Status: Received by [facility]/pharmacy #[id number] Primary Care Physician: Ailin Figueroa DO [Primary Care Provider] - Test Results: Test results from this visit will be discussed in further detail at your follow-up appointment, if applicable. Please Follow Up With: Radha Carrasquillo PA-C - [phone] When: Call to make an appointment to be seen in about 10 days.
--- NOTE | 2019-10-07 12:15 | LIP_PTH ---
PATIENT: YAIR MCCULLOUGH LOC: [facility] U#:[id number] AGE/SX: 24/F ROOM: RE10/07/[address]: Dr. Colby Adair MD : 1995 BED: DIS: 10/07/2019 SPEC #: [id number] RECD: 10/07/19 12:29 STATUS: ELDA REBrendan #: [id number] MARIE: 10/07/19 12:[address]: Colby Adair DEPT: SURGICAL PATHOLOGY RECD BY: Darci Thakkar ENTERED: 10/08/19 09:10 SP TYPE: LIPOMA OTHR DR: Dr. Ailin Figueroa, DO Tissues: Soft tissues, NOS Procedures: Surgery Specimen Level III HEADER OPERATION: Excision lipoma, abdomen PRE-OP DIAGNOSIS: Lesion subcutaneous tissue L98.9 TISSUE SUBMITTED: Lipoma/subcutaneous tissue, abdomen MICROSCOPIC DIAGNOSIS Soft tissue mass of abdomen, excision: Mature adipose tissue consistent with lipoma. AM:tommy 10/09/19 MICROSCOPIC DESCRIPTION Slides are reviewed. GROSS DESCRIPTION Received in fixative is one container labeled with the patient's name and designated subcutaneous tissue of abdomen. The specimen consists of a lobulated fragment of yellow fatty tissue measuring 6.5 x 3.8 x 1.7 cm. Sections reveal homogenous yellow cut surfaces without areas of cyst formation, necrosis or hemorrhage. Neurosurgical Physician Assistant sections are submitted in two cassettes. / AM:tommy 10/08/19 TC:1 CPT: 06415
--- NOTE | 2019-10-16 12:06 | PCM.HP.BLA ---
Problem List (1) Lesion of subcutaneous tissue Status: Acute History and Physical Date of Admission: 10/07/19 [facility] [address] [place], [place] [id number] OFFICE VISIT Date of Service: 10/01/19 MR#: [id number] Acct: [id number] Name: YAIR MCCULLOUGH Rep #: [id number] : 1995 Provider: Dr. Colby Adair MD Age/Sex: 24/F Location: [facility] Status: Signed Intake Vital Signs 10/01/19 Height 5 ft 5 in 10/01/19 Weight: 126 lb 10/01/19 BMI 20.9 10/01/19 BP 137/77 H 10/01/19 Blood Pressure Location Rt brachial 10/01/19 Position Sitting 10/01/19 Respiration 16 Intake Visit Reasons: ABDOMINAL LIPOMA Chief Complaint: Right eye redness Physician General Practice Required: No Is patient in pain?: No Allergies Penicillins Allergy (Verified 10/01/19 14:35) Rash Medications Multivitamins,Therapeutic [Multivitamin] 1 tab PO DAILY 08/25/14 [History Confirmed 10/01/19] propranolol 10 mg tablet 10 mg PO .prn tab 04/29/18 [History Confirmed 10/01/19] sertraline 25 mg tablet 25 mg PO DAILY 04/29/18 [History Confirmed 10/01/19] polymyxin B sulfate 10,000 unit-trimethoprim 1 mg/mL eye drops 1 drp OPHTHALMIC Q3H #5 ml 08/09/18 [Rx Confirmed 10/01/19] norgestimate 0.25 mg-ethinyl estradiol 35 mcg tablet 1 tab PO DAILY #84 tab 06/11/19 [Rx Confirmed 10/01/19] PFSH Medical History Anxiety (Acute) Back pain (Acute) Chest pain (Acute) Hemorrhoids (Acute) Lymphoma (Acute) Neck pain (Acute) Shoulder pain (Acute) Surgical History History of breast biopsy (Acute) Family History Mother Cancer stomach cancer Social History (Updated 10/01/19 @ 16:[address] Colby Adair MD) Smoking Status: Never smoker alcohol intake: current details: social substance use type: does not use caffeine: Yes what type of physical activity do you participate in: walking seatbelt use: always do you feel safe at home: Yes additional social history: [employer] Patient works at [employer] HPI HPI HPI: YAIR MCCULLOUGH, is a 24 F who presents to the office today for HPI HPI Surgical H&P: Yes HPI: YAIR MCCULLOUGH, is a 24 F who presents to the office today for Painful lump on her abdominal wall. Patient has had a subcutaneous lesion superior and lateral to her umbilicus area for many years. It is been increasing in size and has been giving her more discomfort. She cannot recall any trauma to the area. She has had a CAT scan which confirmed that this appears to be a subcutaneous fatty lesion back in 2016. Exam Const General: no acute distress, well developed, well hydrated Orientation: oriented to person, oriented to place, oriented to time [facility] Head: normocephalic, atraumatic Ears: external ears normal Mouth: moist mucous membranes Eyes Sclera: sclerae normal Pupils: normal by confrontation Neck Neck: no lymphadenopathy noted Neck mass: No Thyroid: thyroid normal, symmetrical Chest Chest palpation & inspection: normal inspection of the chest Resp Effort & Inspection: normal respiratory effort Auscultation: clear to auscultation bilaterally Percussion: percussion normal Cardio Rate: regular rate Rhythm: regular rhythm GI Palpation: soft, no hepatosplenomegaly, no masses, nontender Rectal Exam: other Other: Rectal exam deferred. Skin Other: Superior to the umbilicus and just slightly left of the midline is a 3 cm soft subcutaneous lesion does not have any aggressively hard features the overlying skin all appears normal. It is slightly movable but not easily movable. It is nontender to touch. Extrem General: normal to inspection, no clubbing, cyanosis or edema Assessment & Plan Problems 1. Lesion of subcutaneous tissue L98.9 Plan Plan is to excise this Lesion of subcutaneous tissue in the OR. This will be done under local MAC. Patient understands the bleeding infection of the To most likely complications. Blood clots heart attacks pneumonias and strokes also risk but not likely in her age group. She also understands it there is a chance that recurrence of a lipoma or subcutaneous lesion can occur in this area.All questions asked were answered and she is willing to proceed. Coding Level of Care Code Off vis,new,level 3 Diagnoses Lesion of subcutaneous tissue L98.9 10/01/19 1610 <Electronically signed by Colby Adair MD> Date Colby Adair MD Cosigner Signature: Date (if applicable) CC: Dr. Ailin Figueroa, DO ~ I have re-examined the patient. There are no clinical changes since date of exam.
== END 2019-10-07 13:19 | disposition home or self-care (01) ==
LOC: SDC 10:09 → AC 10:09
PROVIDERS: Anesthesiology; PCP Family Medicine; Referring Provider Surgery; Visit Provider Surgery
PROC: (CPT 22900; principal; 2019-10-07 12:00)
DX: D17.1 Benign lipomatous neoplasm of skin and subcutaneous tissue of trunk (principal); F41.9 Anxiety disorder, unspecified; F32.9 Major depressive disorder, single episode, unspecified; Z11.59 Encounter for screening for other viral diseases; Z79.899 Other long term (current) drug therapy
CPT/HCPCS: 00730; 22900; 81025; 87635; 88304; G2023; J7120; U0002

== ENCOUNTER → 2020-01-28 | Outpatient (CLI) | payer BC, SELFPAY ==
[2020-01-28 13:47] VITALS: BMI 20.5
== END | disposition home or self-care (01) ==
LOC: LABSPEC 16:36
PROVIDERS: PCP Family Medicine; Referring Provider Nurse Practitioner Women's Health; Visit Provider Nurse Practitioner Women's Health
DX: N89.8 Other specified noninflammatory disorders of vagina (principal)
CPT/HCPCS: 87070; 87205

== ENCOUNTER 2020-10-12 13:15 | Outpatient (RCR) | payer OTHER, SELFPAY ==
[2020-01-28 13:47] VITALS: BMI 20.5
--- NOTE | 2020-06-29 18:54 | MASS.EVAL ---
Massage Therapy Evaluation: Initial Evaluation Date: 06/29/2020 SUBJECTIVE: Yessi is a 25 year old female who was referred to the [facility] facility for a massotherapy evaluation by Dr. Figueroa with the diagnosis of myalgias. She presents today with the symptoms of pain, stiffness and tension in the neck, head, mid back, low back, and hips. Yessi reports having a past medical history of pain with muscle tension in her shoulders, upper back and hips. She reports having minimal improvement with exercise and stretching over the last few months. OBJECTIVE: Upon observation Yessi has some posture issues with her head and shoulders forward from the neutral position in sitting and standing. After examination and palpation, I found Yessi to have high muscle tension with tenderness and myofascial restrictions in her sub occipitals, levator scapulae, trapezius, rhomboids, scalenes, and thoracic paraspinals. Her QL?s, lumbar paraspinals, piriformis, glute medius and minimus all were very tight with fascial restrictions, tender points and trigger points. The first treatment consisted of a one hour massage to her full body with myofascial release, muscle stripping, trigger point compression techniques, and cervical manual traction. ASSESSMENT: I feel that Yessi is a good candidate for massotherapy at this time. She had a favorable response to the first treatment with reduction in her muscle aches, pain and tension. She also had improvement in her cervical flexibility and low back flexibility. PLAN: The plan of care was reviewed with the patient. The patient is to be seen on an as needed basis for a total of ten sessions with the recommendation of once every month for a one hour treatment.
--- NOTE | 2021-05-05 10:06 | DS.PCM_ITS ---
Massage Therapy Discharge Summary: Discharge Date: 05/05/2021 Yessi was seen for a massotherapy evaluation on 06/29/2020 with the diagnosis of myalgias. She was treated with four sessions of massage therapy consisting of deep pressure soft tissue techniques, myofascial release and trigger point compression to his cervical, thoracic, lower back and hips. Yessi responded well to the therapy by reporting decreased tension and pain throughout her neck, shoulders, lower back, lower extremities and hips. Her goals for therapy were met throughout the treatment sessions. At this time this patient is being discharged from our care at [facility] facility.
== END 2020-10-12 19:00 | disposition home or self-care (01) ==
LOC: MASS 13:15
PROVIDERS: PCP Family Medicine; Referring Provider Family Medicine; Visit Provider Family Medicine
DX: M79.10 Myalgia, unspecified site (principal)
CPT/HCPCS: 97124

== ENCOUNTER 2021-06-16 16:59 | Outpatient (CLI) | payer OTHER, SELFPAY ==
[2021-06-20 21:49] LABS: HPV Reflexed? NOT INDICATED
== END 2021-06-16 23:59 | disposition short-term general hospital (02) ==
PROVIDERS: PCP Family Medicine; Visit Provider Nurse Practitioner Women's Health
DX: Z12.4 Encounter for screening for malignant neoplasm of cervix (principal)
CPT/HCPCS: 88175; G0145

== ENCOUNTER → 2022-07-07 | Outpatient (CLI) | payer BC, SELFPAY ==
--- NOTE | 2022-07-07 08:43 | BI_ITS ---
MAMMOGRAPHY - BILATERAL DIAGNOSTIC REASON FOR EXAM: Female, 27 years old. 2 week history of pain in the upper outer quadrant of the right breast. History of prior left excisional breast biopsy. PERTINENT HISTORY: Mother with breast cancer. TECHNIQUE: Digital bilateral breast stanislav (3D mammographic acquisition) in the CC and MLO projections. 2-D mediolateral oblique (MLO) and craniocaudad (CC) views of both breasts were obtained. CAD: Full Field Digital Mammography with Computer Added Detection was performed. COMPARISON: None. Baseline examination. FINDINGS: Breast Composition: The breasts are extremely dense, which lowers the sensitivity of mammography. There are no dominant masses or suspicious calcifications. No other significant abnormalities are identified. BI/DIAG MAMM W/CAD, BILAT IMPRESSION: Negative diagnostic mammogram. With the patient''s history of pain in the right breast, targeted ultrasound of the right breast is recommended. ASSESSMENT CATEGORY: BIRADS Category 0: Incomplete. Need additional imaging evaluation. A letter regarding these results will be sent to the patient by the facility within 30 days. Approximately 10% of breast cancers are not detected by mammography. A normal mammogram should not delay biopsy of a clinically suspicious abnormality. Electronically Signed: Jorge Luis Mandujano MD at 11:11 EST ,
--- NOTE | 2022-07-07 09:42 | US_ITS ---
STUDY: ULTRASOUND BREAST - RIGHT REASON FOR EXAM: Female, 27 years old. Palpable lump in the right breast. TECHNIQUE: Axial and longitudinal images of the RIGHT breast were performed with a high resolution ultrasound transducer. # OF IMAGES: 61 COMPARISON: Comparison is made with prior mammogram done earlier today. FINDINGS: RIGHT Breast: The upper half of the right breast was examined with ultrasound. No sonographic abnormality is seen. IMPRESSION: No sonographic abnormality is seen. ASSESSMENT CATEGORY: BIRADS Category 1: Negative. A letter regarding these results will be sent to the patient by the facility within 30 days. Electronically Signed: Jorge Luis Mandujano MD at 15:36 EST , STUDY: ULTRASOUND BREAST - LEFT REASON FOR EXAM: Female, 27 years old. Palpable lump left breast. TECHNIQUE: Axial and longitudinal images of the LEFT breast were performed with a high resolution ultrasound transducer. # OF IMAGES: 61 COMPARISON: Comparison is made with prior mammogram done earlier today. FINDINGS: LEFT Breast: The upper inner quadrant of the left breast was examined with ultrasound. No sonographic abnormality is seen. US/Breast Limited Unilateral IMPRESSION: No sonographic abnormality is seen. ASSESSMENT CATEGORY: BIRADS Category 1: Negative. A letter regarding these results will be sent to the patient by the facility within 30 days. Electronically Signed: Jorge Luis Mandujano MD at 15:37 EST ,
--- NOTE | 2022-07-07 15:55 | US_ITS ---
EXAM: US PELVIS TRANSABDOMINAL AND TRANSVAGINAL, COMPLETE CLINICAL INDICATION: pelvic pain and bloating TECHNIQUE: Transabdominal and transvaginal pelvic ultrasound was performed with grayscale and color Doppler imaging. Transvaginal imaging was used for better evaluation of the endometrium and adnexa. This report was created using [employer] report [employer] technology. COMPARISON: None. FINDINGS: UTERUS/CERVIX: Anteverted uterus measuring 9.0 x 4.5 x 3.5 cm with no fibroids identified. Endometrial complex measures 5 m in thickness. Cervix is normal. RIGHT OVARY: Blood flow demonstrated both ovaries. Right ovary measures 2.0 x 1.3 x 1.3 cm. Left ovary measures 2.5 x 1.0 x 1.6 cm. LEFT OVARY: See above. FREE FLUID: No adnexal masses and no significant free pelvic fluid. BLADDER: Bladder is unremarkable. OTHER FINDINGS: Circumscribed elongated cystic structure in the vaginal canal measuring 2.7 x 1.3 x 0.9 cm. US/Pelvic (Non ) IMPRESSION: 1. Circumscribed elongated cystic structure in the vaginal canal measuring 2.7 x 1.3 x 0.9 cm. 2. Unremarkable uterus and ovaries with no free fluid. Electronically Signed: Kennedy Stewart MD at 23:36 EST ,
== END | disposition home or self-care (01) ==
LOC: US 08:43
PROVIDERS: PCP Family Medicine; Visit Provider Obstetrics & Gynecology
DX: N63.22 Unspecified lump in the left breast, upper inner quadrant (principal); R10.2 Pelvic and perineal pain
CPT/HCPCS: 76642; 76830; 76856; 77062; 77066; 93976; G0279

== ENCOUNTER → 2022-07-31 | Outpatient (CLI) | payer BC, SELFPAY ==
--- NOTE | 2022-07-31 16:38 | MRI_ITS ---
EXAM: MR PELVIS WITHOUT AND WITH INTRAVENOUS CONTRAST CLINICAL INDICATION: vaginal cyst TECHNIQUE: Multiplanar and multisequence MR images of the pelvis without and with intravenous contrast. This report was created using [employer] report generation technology. CONTRAST: IV 12mL clariscan COMPARISON: None. FINDINGS: APPENDIX: No evidence of acute appendicitis. INTRAPERITONEAL SPACE: Unremarkable. No ascites or other fluid collection. BLADDER: Urinary bladder is unremarkable. REPRODUCTIVE: Along the anterior vaginal cavity, there are 3 separate thin-walled nonenhancing cysts (versus single, contiguous septated cyst), best seen on image 15 of series 3. The largest cyst (inferior) measures 1.2 x 1.2 cm. The cysts abut the posterior wall of the urethra on image 21 of series 5, however, there is no direct continuity with the urethra seen. Cephalad border of this cysts are approximately 2 cm below the level of the cervix. Uterus is normal in appearance. No uterine masses. BONES/JOINTS: Unremarkable. No suspicious lytic or blastic abnormality. SOFT TISSUES: Unremarkable. No pelvic wall hernia. LYMPH NODES: Unremarkable. No enlarged lymph nodes. MRI/Pelvis W/WO Contrast IMPRESSION: Thin-walled cysts (versus septated single cyst) of the anterior vagina favoring Theron''s duct cysts/cyst. However, also in the differential diagnosis is urethral diverticula, although no direct communication with the urethra is documented. If there are clinical indicators for urethral diverticulum (dysuria, postvoid dribbling, dyspareunia), a voiding cystourethrogram may be of use. Electronically Signed: Buzz Balderrama (Brooks), at 11:30 EDT ,
== END | disposition home or self-care (01) ==
LOC: MRI 16:15
PROVIDERS: PCP Family Medicine; Referring Provider Obstetrics & Gynecology; Visit Provider Obstetrics & Gynecology
DX: N89.8 Other specified noninflammatory disorders of vagina (principal)
CPT/HCPCS: 72197; A9575

== ENCOUNTER → 2022-09-13 | Outpatient (CLI) | payer BC, SELFPAY ==
--- NOTE | 2022-09-13 08:47 | RAD_ITS ---
CLINICAL HISTORY: Female, 27 years old. Lower abdominal pain. Vaginal cyst. PROCEDURE: Urethrogram. FLUOROSCOPY TIME (if supplied): (30 seconds) minutes/seconds. 8.24 mGy 3 images were submitted. 200 mL of contrast installed into the bladder in a retrograde fashion through the indwelling Correa catheter.. The radiologist installed the contrast into the bladder. TECHNIQUE: (All elements of maximal sterile barrier technique followed, including US elements as applicable) The bladder was adequately filled with contrast. No abnormality is seen. No post void residual. RAD/Voiding Urethrocystography IMPRESSION: Unremarkable urethrogram. Electronically Signed: Jorge Luis Mandujano MD at 15:25 EDT ,
== END | disposition home or self-care (01) ==
LOC: RAD 08:37
PROVIDERS: PCP Family Medicine
DX: N89.8 Other specified noninflammatory disorders of vagina (principal); R35.0 Frequency of micturition
CPT/HCPCS: 51600; 74455; Q9965

== ENCOUNTER → 2023-06-06 | Outpatient (CLI) | payer BC, SELFPAY ==
--- OUTSIDE RECORDS SUMMARY | 2023-06-06 09:58 | XMS RPT_ITS | CCD ---
Author Name Unknown Address [address] [place] [address] Organization [facility] Care Team Providers Care Human Resources Hr Generalist Name Role Phone LIA MCODNALD (DRUPAL PHP DEVELOPER) Unavailable Unavailable Ailin Figueroa Primary Care Provider [phone] Ailin Figueroa Primary Care Provider [phone] HENRY, AILIN Primary Care Unavailable GRETEL DAY Referring Unavailable KOBI DIAZ Attending Unavailable AILIN FIGUEROA Primary Care Unavailable GRETEL DAY Attending Unavailable CASS STEIN Referring Unavaila ble HENRY AILIN Primary Care Unavailable Allergies Allergy Classification Reported Allergen(s) Allergy Type Date of Onset Reaction(s) Facility (20 sources) Penicillins; Translations: [PENICILLINS] Propensity to adverse reactions to drug (disorder) 4 Hives, Other, Rash [facility] Repository (1 source) Seasonal allergy; Translations: [SEASONAL ALLERGIES] Propensity to adverse reactions (disorder) 4 AOF [facility] Repository (20 sources) beta Sitosterol / ZINC CITRATE Drug Allergy 4 Other [facility] (20 sources) Other Allergy to substance 4 Other [facility] Medications Current Medications Medication Drug Class(es) Dates Sig (Normalized) Sig (Original) ethinyl estradiol 0.035 mg / norgestimate 0.25 mg oral tablet (19 sources) Progestin, Estrogen Start: 06-11-2022 take 1 tablet by mouth once daily Deisi 0.25-35 MG-MCG tablet Take 1 tablet by mouth daily. 0 06/11/2022 Active famotidine 20 mg oral tablet (3 sources) Histamine-2 Receptor Antagonist Start: 10-09-2022 End: 01-07-2023 take 1 tablet by mouth twice daily famotidine (Pepcid) 20 MG tablet Indications: Postprandial abdominal pain in left upper quadrant Take 1 tablet (20 mg) by mouth 2 times daily. 60 tablet 2 10/09/2022 01/07/2023 Active MV-Min-Fe Fum-FA-DHA ( 1 PO) (19 sources) MV-Min- Fe Fum-FA-DHA ( 1 PO) Take by mouth. 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; 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] Onset: 08-16-2022 07-25-2022 Chronic Genitourinary symptoms and ill-defined conditions (17 sources) Increased frequency of urination; Translations: [Frequency of micturition] Onset: 08-16-2022 Episodic Menstrual disorders (2 sources) Irregular menstruation, unspecified; Translations: [Irregular menstruation, unspecified] Onset: 08-16-2022 Chronic Other female genital disorders (15 sources) Cyst of vagina; Translations: [Other specified noninflammatory disorders of vagina] Episodic Other gastrointestinal disorders (3 sources) Abdominal bloating; Translations: [Abdominal distension (gaseous)] Episodic Other gastrointestinal disorders (2 sources) Abdominal distension (gaseous); Translations: [Abdominal distension (gaseous)] Onset: 11-07-2022 Episodic Residual codes; unclassified (1 source) FH: Stomach cancer; Translations: [Family history of malignant neoplasm of digestive organs] Episodic Results Test Name Value Interpretation Reference Range Facil ity Vital Signs Date Time Vital Sign Value Performing Clinician Yu chauhan 11-07-2022 09:49-0400 Body temperature 97.5 [degF] Ailin Figueroa Work Phone: [facility] 11-07-2022 09:49-0400 Diastolic blood pressure 51 mm[Hg] Ailin Melloys Work Phone: [facility] 11-07-2022 09:49-0400 Heart rate 75 /min Ailin Melloys Work Phone: [facility] 11-07-2022 09:49-0400 Respiratory rate 16 /min Ailin Melloys Work Phone: [facility] 11-07-2022 09:49-0400 SaO2% (BldA) [Mass fraction] 98 % Ailin Henry Work Phone: [facility] [employer] 11-07-2022 09:49-0400 Systolic blood pressure 94 mm[Hg] Ailin Melloys Work Phone: [facility] 11-07-2022 08:22-0400 Body height 165.1 cm Ailin Melloys Work Phone: [facility] 11-07-2022 08:22-0400 Body mass index (BMI) [Ratio] 19.8 kg/m2 Ailin Melloys Work Phone: [facility] 11-07-2022 08:22-0400 Body weight 53.98 kg Ailin Melloys Work Phone: [facility] 10-09-2022 09:11-0400 Body height 165.1 cm Kobi Maximeer CONTRACT DESIGN AGENT - CERTIFIED ADDICTION COUNSELOR Work Phone: [facility] 10-09-2022 09:11-0400 Body mass index (BMI) [Ratio] 20.07 kg/m2 Kobi Forester CONTRACT DESIGN AGENT - CERTIFIED ADDICTION COUNSELOR Work Phone: [facility] [employer] 10-09-2022 09:11-0400 Body weight 54.7 kg Kobi [employer] CONTRACT DESIGN AGENT - CERTIFIED ADDICTION COUNSELOR Work Phone: [facility] [employer] 10-09-2022 09:11-0400 Diastolic blood pressure 79 mm[Hg] [employer] CONTRACT DESIGN AGENT - CERTIFIED ADDICTION COUNSELOR Work Phone: [facility] [employer] 10-09-2022 09:11-0400 Heart rate 68 /min Kobi Diaz CONTRACT DESIGN AGENT - CERTIFIED ADDICTION COUNSELOR Work Phone: [facility] 10-09-2022 09:11-0400 Systolic blood pressure 118 mm[Hg] Kobi Galvez PRN - CERTIFIED ADDICTION COUNSELOR Work Phone: [facility] Encounters Encounter Date Encounter Type Care Provider Facility Start: 11-07-2022 End: 11-08-2022 ambulatory AILIN HENRY [facility] Start: 11-07-2022 End: 11-07-2022 Subsequent hospital visit by physician Ailin Figueroa Work Phone: [facility] Procedures Date Procedure Procedure Detail Performing Clinician Start: 11-07-2022 Urine test visual color cmprsn meths Cristobal Day CONTRACT DESIGN AGENT - HEALTH AND WELLNESS COACH Work Phone: Plan of Treatment Date Care Activity Detail Author Start: 02-09-2046 Zoster Vaccines (1 of 2) Zoste r Vaccines (1 of 2) [facility] Start: 01-19-2023 Influenza vaccination Influenz a Vaccine (Season Ended) [facility] Start: 11-07-2022 End: 11-07-2022 Admission to same day surgery center [facility] Immunizations Immunization Date Immunization Notes Care Provider Fa harrison 02-17-2020 influenza virus vacc ine, unspecified formulation Gretel Day MD Work Phone: [facility] Payers Date Payer Category Payer Unknown LENY KENDRICK CROS S [employer] [id number] 2022-Present [address] [place] [address] Commercial [id number] 2022 Unknown [id number] Social History Date Type Detail Facility Start: 08-16-2022 Tobacco smoking stat us NHIS Never smoked tobacco [facility] Start: 08-16-2022 Tobacco use and exposure Smokeless t obacco non-user [facility] Start: 08-16-2022 End: 11-07-2022 Alcohol intake Current drinker of alcohol (finding) [facility] Start: 08-16-2022 End: 11-07-2022 Alcohol intake [facility] Start: 1995 Sex Assigned At Not on file [facility] Start: 09-29-2022 End: 11-07-2022 Exposure to SARS-CoV-2 (event) Not sure [facility] Tobacco smoking stat us CTIS Tobacco smoking consumption unknown [facility] Start: 10-09-2022 End: 11-07-2022 Tobacco use panel [facility] Start: 11-03-2022 Alcohol Comment social [facility] Clinical Notes 07-25-2022 to 11-07-2022 Discharge InstructionsOp Note - Ignacio Wong MD - 11/07/2022 9:31 AM EDTPreprocedure Instructions - Candi Thomas RN - 11/07/2022 9:00 AM EDTOp Note - Ignacio Wong MD - 11/07/2022 9:31 AM EDT Note Date & Type Note Facility 11-07-2022 Note Patient: Yair Mccullough Procedure Summary Date: 11/07/22 Room / Location: [facility] OR Anesthesia Start: 930 Anesthesia Stop: 948 Procedure: EGD DIAGNOSTIC Diagnosis: Postprandial abdominal pain in left upper quadrant Abdominal bloating Lower abdominal pain (Postprandial abdominal pain in left upper quadrant [R10.12]) (Abdominal bloating [R14.0]) (Lower abdominal pain [R10.30]) Surgeons: Ignacio Wong MD Responsible Provider: No Anesthesiologist - Aretha/MD Melida Anesthesia Type: general, TIVA ASA Status: 2 Anesthesia Type: general, TIVA Vitals Value Taken Time BP 94/51 11/07/22 0949 Temp 36.4 ?C (97.5 ?F) 11/07/22 0949 Pulse 74 11/07/22 0955 Resp 16 11/07/22 0949 SpO2 98 % 11/07/22 0955 Vitals shown include unvalidated device data. Anesthesia Post Evaluation Patient location during evaluation: PACU Patient participation: complete - patient participated Level of consciousness: awake Pain management: adequate Airway patency: patent Dental Injury: no Cardiovascular status: acceptable and hemodynamically stable Respiratory status: acceptable, spontaneous ventilation and room air Hydration status: acceptable Nausea/Vomiting: controlled No notable events documented. Patient can be discharged once all PACU criteria has been met. [facility] 11-07-2022 Note Patient: Yair Mccullough Procedure Summary Date: 11/07/22 Room / Location[place] [facility] [facility] [place] [facility] [place] Anesthesia Start: 930 Anesthesia Stop: 948 Procedure: EGD DIAGNOSTIC Diagnosis: Postprandial abdominal pain in left upper quadrant Abdominal bloating Lower abdominal pain (Postprandial abdominal pain in left upper quadrant [R10.12]) (Abdominal bloating [R14.0]) (Lower abdominal pain [R10.30]) Surgeons: Ignacio Wong MD Responsible Provider: No Anesthesiologist - Aretha/MD Melida Anesthesia Type: general, TIVA ASA Status: 2 Anesthesia Type: general, TIVA Vitals Value Taken Time BP 94/51 11/07/22 0949 Temp 36.4 ?C (97.5 ?F) 11/07/22 0949 Pulse 74 11/07/22 0955 Resp 16 11/07/22 0949 SpO2 98 % 11/07/22 0955 Vitals shown include unvalidated device data. Anesthesia Post Evaluation Patient location during evaluation: PACU Patient participation: complete - patient participated Level of consciousness: lethargic Pain score: 0 Pain management: adequate Airway patency: patent Cardiovascular status: acceptable and hemodynamically stable Respiratory status: acceptable, room air and spontaneous ventilation Hydration status: acceptable No notable events documented. MIPS #[id number] PONV Patient did not receive an inhalational anesthetic (XX430) MIPS # 424 Perioperative Temperature Management Anesthesia time was less than 60 minutes (4256F) MIPS #477 Multimodal Pain Management Not emergent case Patient was not administered multimodal pain management (G2149) Patient reports no pain in PACU (G2149) MIPS #404 Anesthesiology Smoking Abstinence The patient is not a current smoker (e.g. cigarette, cigar, pipe, e-cigarette/vaping/marijuana) If no stop here (XX404) I completed my handoff to the receiving clinician during which we: 1. Identified the patient 2. Identified the responsible provider 3. Reviewed the pertinent medical history 4. Discussed the surgical course 5. Reviewed intra-op anesthesia management and issues during anesthesia 6. Set expectations for post-procedure period 7. Allowed opportunity for questions and acknowledgement of understanding. [facility] 11-07-2022 Note [facility] Patient Pre-procedure Instructions Sleep Apnea: If yes, please bring CPAP machine May shower/brush teeth. Leave valuables/jewelry at home. No makeup, lotion, powder, deodorant or body sprays. No contact lenses No makeup, contact lenses, piercings, or dark nail citizen of [place] No solid food after midnight before procedure. Clear liquids only - up to 2 hours prior to your arrival time (water, clear juice, Gatorade, coffee/tea with no milk/sugar, no mints gum or candy If of age, you may need to undergo a test Medications to take the morning of surgery Take the following medications: N/A Do not take the following medications: N/A No Motrin, ibuprofen or Advil in 24 hours prior to surgery, longer if directed by your surgeon No Aleve or Naprosyn for 3 days prior to surgery or longer if instructed by your surgeon. If you take blood thinners or aspirin, follow instructions given to you by your surgeon You may take your prescription pain medication, you may take Tylenol for pain. Do not use/smoke THC or drink alcohol in the 24 hours prior to your arrival time. Please Bring your Peg Driver's license/photo ID, insurance card, eye drops/sunglasses, inhalers if applicable If you have a Medical Power of Mold Inspector, living will, or an advanced directive, please bring a copy with you. We are required to resuscitate and transfer you to the hospital along with your directive. [facility] 11-07-2022 Hospital Discharg e instructions Candi Thomas RN - 11/07/2022 10:17 AM EDT Anesthesia and Activity: DO NOT drive, operate machinery, drink any alcohol or take sleeping pills today Avoid making critical decisions, signing legal documents, or performing any activity that requires alertness for the rest of the day. You may experience a tickling, dry throat or mouth. You may be hoarse. Use lozenges and warm saltwater gargles. Notify your physician if these symptoms persist longer than 48 hours. Rest the remainder of the day. You may resume normal activity tomorrow. DIET: You may resume a normal diet unless notified or recommended by your physician. You may be eager to eat a large meal after fasting, but it is a good idea to start with light meals and ease into solid foods the first day. If your stomach is upset, try clear liquids and bland, low fat foods like toast or rice. Drink plenty of fluids for the first 24 hours (unless your physician states otherwise) MEDICATION: Resume your normal home medications unless notified or recommended by your physician. Ask your physician when you can resume any blood thinners, such as Coumadin, Eliquis, Plavix, Aspirin or non-steroidal anti-inflammatory medications, such as Advil/Motrin (ibuprofen), Aleve (naproxen) Follow-up Appointment: If biopsies were taken or polyps were removed the office will call you with pathology reports in 7-10 days. If you do not hear from them during that time frame please call your physician. When to call for help: Call your doctor immediately or seek medical care if you experience: Severe pain or vomiting Coughing up more than a teaspoon of blood A fever greater than 101 degrees Redness or swelling of arm from the IV site for more than 48 hours Sudden onset of chest pain or shortness of breath IF YOU ARE UNABLE TO REACH YOUR PHYSICIAN GO TO NEAREST EMERGENCY DEPARTMENT OR CALL 911 documented in this encounter [facility] 11-07-2022 Note Attestation signed by Ignacio Wong MD at 11/07/2022 9:26 AM GASTROENTEROLOGY PHYSICIAN NOTE Risks & benefits of the endoscopic procedure(s) and MAC /GA sedation were personally explained to patient / family along with alternatives to the procedure in detail including radiological and surgical options. The risks of the endoscopic procedure include but are not limited to risk from anesthesia, respiratory failure, infection, bleeding, perforation, pancreatitis with its sequelae , damage to the adjacent organs, missed lesions and need for further procedure, surgery or interventional radiological intervention, from procedure or complications. We made a shared decision to proceed with planned procedure. Judith VELA Gastroenterology Subjective Yair Mccullough is a 27 y.o. female who presents to the ASC today for a preoperative consultation at the request of surgeon Dr Angeles who plans on performing EGD on November 07. Planned anesthesia: IV sedation. NPO: 8pm last night LMP: 11/07/22 Pacemaker: no Defibrillator: no Blood Thinners: no Social History Socioeconomic History Marital status: Spouse name: Not on file Number of children: Not on file Years of education: Not on file Highest education level: Not on file Occupational History Not on file Tobacco Use Smoking status: Never Smokeless tobacco: Never Substance and Sexual Activity Alcohol use: Yes Alcohol/week: 4.0 standard drinks of alcohol Types: 2 Glasses of wine, 2 Cans of beer per week Comment: social Drug use: Never Sexual activity: Yes Partners: Male control/protection: Condom Male Other Topics Concern Not on file Social History Narrative Not on file Social Determinants of Health Financial Resource Strain: Not on file Food Insecurity: Not on file Transportation Needs: Not on file Physical Activity: Not on file Stress: Not on file Social Connections: Not on file Intimate Partner Violence: Not on file Housing Stability: Not on file Past Medical History: Diagnosis Date Patient denies medical problems Past Surgical History: Procedure Laterality Date CYST REMOVAL upper abdomen CYST REMOVAL left underarm Allergies: Allergies Allergen Reactions Cholestatin Other Other Other Nasal congestion Penicillins Hives, Other and Rash Vital Signs:Ht 5'5 Wt 119 Bp 124/76 Pox 98% HR 76 temp 98.4 Physical Exam Constitutional: Appearance: Normal appearance. HENT: Mouth/Throat: Pharynx: Oropharynx is clear. Eyes: Pupils: Pupils are equal, round, and reactive to light. Cardiovascular: Rate and Rhythm: Normal rate and regular rhythm. Pulmonary: Effort: Pulmonary effort is normal. Breath sounds: Normal breath sounds. Musculoskeletal: General: Normal range of motion. Cervical back: Normal range of motion. Skin: General: Skin is warm and dry. Neurological: Mental Status: She is alert and oriented to person, place, and time. Psychiatric: Mood and Affect: Mood normal. Judgment: Judgment normal. Predictors of anesthesia difficulty: Tolerate anesthesia in past: yes Morbid obesity? no Neck range of motion: normal Dentition: No chipped, loose, or missing teeth. AP: Postprandial abdominal pain in LUQ Abdominal bloating Lower abdominal pain [facility] 11-07-2022 Miscellaneous Notes Images from the original note were not included. . [facility] [address], [address] [place] [address] Yair Mccullough 1995 ENDOSCOPY REPORT ESOPHAGOGASTRODUODENOSCOPY (EGD) Indication: Abdominal pain and bloating Referring Physician: Kobi Diaz APRN Endoscopist: Dr. Wong Procedure Detail: A physical exam was performed. Informed consent was obtained from the patient after explaining all the risks (perforation, bleeding, missed lesions, trauma to adjacent organs, infection and adverse effects to the medicine) , benefits and alternatives to the procedure which the patient appeared to understand and so stated. A timeout procedure was performed. The patient was connected to the monitoring devices and placed in the left lateral position. Continuous oxygen was provided with a nasal cannula and IV medicine administered through a indwelling cannula. After adequate sedation was achieved, the patient was intubated and the scope advanced under direct visualization to the Second Part of Duodenum. Detailed exam of the oropharynx was not performed. If any concerns; ENT evaluation is recommended. The patient was subsequently transferred to the recovery area in satisfactory condition. Estimated blood loss was <5cc. Specimens per endoscopic findings. The following findings were noted: Endoscopic Findings: Esophagus: The esophagus is normal. Stomach: There is normal stomach. Cold biopsies were taken to rule out H pylori. Retroflexion shows a small fundic diverticulum (benign finding). The scope passes through pylorus with ease. Duodenum: The duodenal bulb, D1 and D2 are normal. Cold biopsies taken to rule out celiac disease. Recommendations: Follow up biopsy results. Follow up with referring provider in GI clinic or PCP. Judith VELA, FACG, FAGSE [facility] - Patient Pre-procedure Instructions Sleep Apnea: If yes, please bring CPAP machine May shower/brush teeth. Leave valuables/jewelry at home. No makeup, lotion, powder, deodorant or body sprays. No contact lenses No makeup, contact lenses, piercings, or dark nail citizen of [place] No solid food after midnight before procedure. Clear liquids only - up to 2 hours prior to your arrival time (water, clear juice, Gatorade, coffee/tea with no milk/sugar, no mints gum or candy If of age, you may need to undergo a test Medications to take the morning of surgery Take the following medications: N/A Do not take the following medications: N/A No Motrin, ibuprofen or Advil in 24 hours prior to surgery, longer if directed by your surgeon No Aleve or Naprosyn for 3 days prior to surgery or longer if instructed by your surgeon. If you take blood thinners or aspirin, follow instructions given to you by your surgeon You may take your prescription pain medication, you may take Tylenol for pain. Do not use/smoke THC or drink alcohol in the 24 hours prior to your arrival time. Please Bring your [place] Driver's license/photo ID, insurance card, eye drops/sunglasses, inhalers if applicable If you have a Medical Power of Mold Inspector, living will, or an advanced directive, please bring a copy with you. We are required to resuscitate and transfer you to the hospital along with your directive. documented in this encounter [facility] 11-07-2022 Note Formatting of this n ote might be different from the original. Images from the original note were not included. . [facility] [address], [address] [place] [address] Yair Mccullough 1995 ENDOSCOPY REPORT ESOPHAGOGASTRODUODENOSCOPY (EGD) Indication: Abdominal pain and bloating Referring Physician: Kobi Diaz APRN Endoscopist: Dr. Wong Procedure Detail: A physical exam was performed. Informed consent was obtained from the patient after explaining all the risks (perforation, bleeding, missed lesions, trauma to adjacent organs, infection and adverse effects to the medicine) , benefits and alternatives to the procedure which the patient appeared to understand and so stated. A timeout procedure was performed. The patient was connected to the monitoring devices and placed in the left lateral position. Continuous oxygen was provided with a nasal cannula and IV medicine administered through a indwelling cannula. After adequate sedation was achieved, the patient was intubated and the scope advanced under direct visualization to the Second Part of Duodenum. Detailed exam of the oropharynx was not performed. If any concerns; ENT evaluation is recommended. The patient was subsequently transferred to the recovery area in satisfactory condition. Estimated blood loss was <5cc. Specimens per endoscopic findings. The following findings were noted: Endoscopic Findings: Esophagus: The esophagus is normal. Stomach: There is normal stomach. Cold biopsies were taken to rule out H pylori. Retroflexion shows a small fundic diverticulum (benign finding). The scope passes through pylorus with ease. Duodenum: The duodenal bulb, D1 and D2 are normal. Cold biopsies taken to rule out celiac disease. Recommendations: Follow up biopsy results. Follow up with referring provider in GI clinic or PCP. Judith VELA, FACG, FAGSE [facility] Work Phone: 11-07-2022 Note Formatting of this n ote might be different from the original. Images from the original note were not included. . [facility] [facility] [address], [address] [place] [address] Yair Mccullough 1995 ENDOSCOPY REPORT ESOPHAGOGASTRODUODENOSCOPY (EGD) Indication: Abdominal pain and bloating Referring Physician: Kobi Diaz APRN Endoscopist: Dr. Wong Procedure Detail: A physical exam was performed. Informed consent was obtained from the patient after explaining all the risks (perforation, bleeding, missed lesions, trauma to adjacent organs, infection and adverse effects to the medicine) , benefits and alternatives to the procedure which the patient appeared to understand and so stated. A timeout procedure was performed. The patient was connected to the monitoring devices and placed in the left lateral position. Continuous oxygen was provided with a nasal cannula and IV medicine administered through a indwelling cannula. After adequate sedation was achieved, the patient was intubated and the scope advanced under direct visualization to the Second Part of Duodenum. Detailed exam of the oropharynx was not performed. If any concerns; ENT evaluation is recommended. The patient was subsequently transferred to the recovery area in satisfactory condition. Estimated blood loss was <5cc. Specimens per endoscopic findings. The following findings were noted: Endoscopic Findings: Esophagus: The esophagus is normal. Stomach: There is normal stomach. Cold biopsies were taken to rule out H pylori. Retroflexion shows a small fundic diverticulum (benign finding). The scope passes through pylorus with ease. Duodenum: The duodenal bulb, D1 and D2 are normal. Cold biopsies taken to rule out celiac disease. Recommendations: Follow up biopsy results. Follow up with referring provider in GI clinic or PCP. Judith VELA, FACG, FAGSE [place] Phone: 11-07-2022 Note Formatting of this n ote might be different from the original. [facility] - Patient Pre-procedure Instructions Sleep Apnea: If yes, please bring CPAP machine May shower/brush teeth. Leave valuables/jewelry at home. No makeup, lotion, powder, deodorant or body sprays. No contact lenses No makeup, contact lenses, piercings, or dark nail citizen of [place] No solid food after midnight before procedure. Clear liquids only - up to 2 hours prior to your arrival time (water, clear juice, Gatorade, coffee/tea with no milk/sugar, no mints gum or candy If of age, you may need to undergo a test Medications to take the morning of surgery Take the following medications: N/A Do not take the following medications: N/A No Motrin, ibuprofen or Advil in 24 hours prior to surgery, longer if directed by your surgeon No Aleve or Naprosyn for 3 days prior to surgery or longer if instructed by your surgeon. If you take blood thinners or aspirin, follow instructions given to you by your surgeon You may take your prescription pain medication, you may take Tylenol for pain. Do not use/smoke THC or drink alcohol in the 24 hours prior to your arrival time. Please Bring your [place] Driver's license/photo ID, insurance card, eye drops/sunglasses, inhalers if applicable If you have a Medical Power of Mold Inspector, living will, or an advanced directive, please bring a copy with you. We are required to resuscitate and transfer you to the hospital along with your directive. [facility] 11-07-2022 Note Formatting of this n ote might be different from the original. [facility] - Patient Pre-procedure Instructions Sleep Apnea: If yes, please bring CPAP machine May shower/brush teeth. Leave valuables/jewelry at home. No makeup, lotion, powder, deodorant or body sprays. No contact lenses No makeup, contact lenses, piercings, or dark nail citizen of [place] No solid food after midnight before procedure. Clear liquids only - up to 2 hours prior to your arrival time (water, clear juice, Gatorade, coffee/tea with no milk/sugar, no mints gum or candy If of age, you may need to undergo a test Medications to take the morning of surgery Take the following medications: N/A Do not take the following medications: N/A No Motrin, ibuprofen or Advil in 24 hours prior to surgery, longer if directed by your surgeon No Aleve or Naprosyn for 3 days prior to surgery or longer if instructed by your surgeon. If you take blood thinners or aspirin, follow instructions given to you by your surgeon You may take your prescription pain medication, you may take Tylenol for pain. Do not use/smoke THC or drink alcohol in the 24 hours prior to your arrival time. Please Bring your [place] Driver's license/photo ID, insurance card, eye drops/sunglasses, inhalers if applicable If you have a Medical Power of Mold Inspector, living will, or an advanced directive, please bring a copy with you. We are required to resuscitate and transfer you to the hospital along with your directive. [facility] 11-07-2022 History and physical note Subjective Yair Mccullough is a 27 y.o. female who presents to the ASC today for a preoperative consultation at the request of surgeon Dr Angeles who plans on performing EGD on November 07. Planned anesthesia: IV sedation. NPO: 8pm last night LMP: 11/07/22 Pacemaker: no Defibrillator: no Blood Thinners: no Social History Socioeconomic History Marital status: Spouse name: Not on file Number of children: Not on file Years of education: Not on file Highest education level: Not on file Occupational History Not on file Tobacco Use Smoking status: Never Smokeless tobacco: Never Substance and Sexual Activity Alcohol use: Yes Alcohol/week: 4.0 standard drinks of alcohol Types: 2 Glasses of wine, 2 Cans of beer per week Comment: social Drug use: Never Sexual activity: Yes Partners: Male control/protection: Condom Male Other Topics Concern Not on file Social History Narrative Not on file Social Determinants of Health Financial Resource Strain: Not on file Food Insecurity: Not on file Transportation Needs: Not on file Physical Activity: Not on file Stress: Not on file Social Connections: Not on file Intimate Partner Violence: Not on file Housing Stability: Not on file Past Medical History: Diagnosis Date Patient denies medical problems Past Surgical History: Procedure Laterality Date CYST REMOVAL upper abdomen CYST REMOVAL left underarm Allergies: Allergies Allergen Reactions Cholestatin Other Other Other Nasal congestion Penicillins Hives, Other and Rash Vital Signs:Ht 5'5 Wt 119 Bp 124/76 Pox 98% HR 76 temp 98.4 Physical Exam Constitutional: Appearance: Normal appearance. HENT: Mouth/Throat: Pharynx: Oropharynx is clear. Eyes: Pupils: Pupils are equal, round, and reactive to light. Cardiovascular: Rate and Rhythm: Normal rate and regular rhythm. Pulmonary: Effort: Pulmonary effort is normal. Breath sounds: Normal breath sounds. Musculoskeletal: General: Normal range of motion. Cervical back: Normal range of motion. Skin: General: Skin is warm and dry. Neurological: Mental Status: She is alert and oriented to person, place, and time. Psychiatric: Mood and Affect: Mood normal. Judgment: Judgment normal. Predictors of anesthesia difficulty: Tolerate anesthesia in past: yes Morbid obesity? no Neck range of motion: normal Dentition: No chipped, loose, or missing teeth. AP: Postprandial abdominal pain in LUQ Abdominal bloating Lower abdominal pain Associated attestation - Ignacio Wong MD - 11/07/2022 9:26 AM EDT GASTROENTEROLOGY PHYSICIAN NOTE Risks & benefits of the endoscopic procedure(s) and MAC /GA sedation were personally explained to patient / family along with alternatives to the procedure in detail including radiological and surgical options. The risks of the endoscopic procedure include but are not limited to risk from anesthesia, respiratory failure, infection, bleeding, perforation, pancreatitis with its sequelae , damage to the adjacent organs, missed lesions and need for further procedure, surgery or interventional radiological intervention, from procedure or complications. We made a shared decision to proceed with planned procedure. Judith VELA Gastroenterology [facility] 11-07-2022 History and physical note Subjective Yair Mccullough is a 27 y.o. female who presents to the ASC today for a preoperative consultation at the request of surgeon Dr Angeles who plans on performing EGD on November 07. Planned anesthesia: IV sedation. NPO: 8pm last night LMP: 11/07/22 Pacemaker: no Defibrillator: no Blood Thinners: no Social History Socioeconomic History Marital status: Spouse name: Not on file Number of children: Not on file Years of education: Not on file Highest education level: Not on file Occupational History Not on file Tobacco Use Smoking status: Never Smokeless tobacco: Never Substance and Sexual Activity Alcohol use: Yes Alcohol/week: 4.0 standard drinks of alcohol Types: 2 Glasses of wine, 2 Cans of beer per week Comment: social Drug use: Never Sexual activity: Yes Partners: Male control/protection: Condom Male Other Topics Concern Not on file Social History Narrative Not on file Social Determinants of Health Financial Resource Strain: Not on file Food Insecurity: Not on file Transportation Needs: Not on file Physical Activity: Not on file Stress: Not on file Social Connections: Not on file Intimate Partner Violence: Not on file Housing Stability: Not on file Past Medical History: Diagnosis Date Patient denies medical problems Past Surgical History: Procedure Laterality Date CYST REMOVAL upper abdomen CYST REMOVAL left underarm Allergies: Allergies Allergen Reactions Cholestatin Other Other Other Nasal congestion Penicillins Hives, Other and Rash Vital Signs:Ht 5'5 Wt 119 Bp 124/76 Pox 98% HR 76 temp 98.4 Physical Exam Constitutional: Appearance: Normal appearance. HENT: Mouth/Throat: Pharynx: Oropharynx is clear. Eyes: Pupils: Pupils are equal, round, and reactive to light. Cardiovascular: Rate and Rhythm: Normal rate and regular rhythm. Pulmonary: Effort: Pulmonary effort is normal. Breath sounds: Normal breath sounds. Musculoskeletal: General: Normal range of motion. Cervical back: Normal range of motion. Skin: General: Skin is warm and dry. Neurological: Mental Status: She is alert and oriented to person, place, and time. Psychiatric: Mood and Affect: Mood normal. Judgment: Judgment normal. Predictors of anesthesia difficulty: Tolerate anesthesia in past: yes Morbid obesity? no Neck range of motion: normal Dentition: No chipped, loose, or missing teeth. AP: Postprandial abdominal pain in LUQ Abdominal bloating Lower abdominal pain Associated attestation - Ignacio Wong MD - 11/07/2022 9:26 AM EDT GASTROENTEROLOGY PHYSICIAN NOTE Risks & benefits of the endoscopic procedure(s) and MAC /GA sedation were personally explained to patient / family along with alternatives to the procedure in detail including radiological and surgical options. The risks of the endoscopic procedure include but are not limited to risk from anesthesia, respiratory failure, infection, bleeding, perforation, pancreatitis with its sequelae , damage to the adjacent organs, missed lesions and need for further procedure, surgery or interventional radiological intervention, from procedure or complications. We made a shared decision to proceed with planned procedure. Judith VELA Gastroenterology documented in this encounter [facility] 11-06-2022 Note Patient: Yair Mccullough Procedure Information Date/Time: 11/07/22 0900 Procedure: EGD DIAGNOSTIC - EGD 30 mins Location: [place] [facility] 3 / [facility] OR Surgeons: Ignacio Wong MD Relevant Problems No relevant active problems Past Medical History: Past Medical History: No date: Patient denies medical problems Past Surgical History: Past Surgical History: No date: CYST REMOVAL Comment: upper abdomen No date: CYST REMOVAL Comment: left underarm Social History: TOBACCO: reports that she has never smoked. She has never used smokeless tobacco. ETOH: reports current alcohol use of about 4.0 standard drinks of alcohol per week. Social History Substance and Sexual Activity Drug Use Never Family History: Family History Problem Relation Name Age of Onset ? Cancer Mother Arina Mccullough-Stomach Cancer stomach ? Cancer Maternal Grandfather Magdaleno Schaefer-Pancreatic Cancer pancreatic ? Diabetes Maternal Grandfather Magdaleno Schaefer-Pancreatic Cancer Screening: Having periods Clinical information reviewed: Tobacco Allergies Meds Med Hx Surg Hx Fam Hx Soc Hx Physical Exam Airway Mallampati: I TM distance: >3 FB Neck ROM: full Mouth Open: normal Cardiovascular Rhythm: regular Dental Comments: intact Pulmonary Abdominal Anesthesia Plan patient is NPO appropriate Any family history or previous problems with anesthesia no ASA 2 general and TIVA Any family history or previous problems with anesthesia no The patient is not a current smoker. Anesthetic plan and risks discussed with patient. SIM Screening Labs: No results found for: WBC, HGB, HCT, MCV, PLT No results found for: NA, K, CL, CO2, BUN, CREATININE, GLUCOSE, CALCIUM, PROT, BILIRUBINFL, ALKPHOS, AST, ALT, EGFR, GLOB No echocardiogram results found for the past 14 days No results found for this or any previous visit. [facility] 10-09-2022 History of Presen t illness Narrative Images from the original note were not included. [facility] GASTROENTEROLOGY [address] [address] Dept: [phone] Dept Loc: [phone] Visit type: New Reason for Visit: Bloated, Abdominal Pain, and Nausea (Occ. After eating mostly ) Assessment and Plan Problem List Items Addressed This Visit None Visit Diagnoses Postprandial abdominal pain in left upper quadrant - Primary Relevant Medications famotidine (Pepcid) 20 MG tablet Abdominal bloating Family history of gastric cancer Lower abdominal pain Postprandial LUQ cramping/Family hx gastric cancer in mother --?PUD vs H. 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 Patient verbalized understanding and agreement of plan. Follow up if symptoms worsen or fail to improve. Subjective Patient is referred by Dr. Day, re: lower abdominal pain. Patient reports starting in June developed post-prandial lower abdominal bloating and LUQ cramping. Cramping is regardless of food choice, worse with quinoa and spinach artichoke dip. Tried 2 weeks of GF diet and 2 weeks of dairy free diet-no change in symptoms. Pain lasts a couple hours at a time. Has occasional nausea, no vomiting. Also notes decreased appetite. Not currently taking anything for symptoms. She recently stopped OCP July 2022. Cannot identify any correlation with bloating and menstrual cycle. Denies diarrhea, constipation, hematochezia and melena. Denies unintentional weight-loss. Denies possibility of . Mom dx stomach cancer at age 52. Maternal grandfather hx pancreatic cancer. No NSAIDS. Abdominal Pain This is a chronic problem. The current episode started more than 1 month ago. The onset quality is sudden. The problem occurs 2 to 4 times per day. The most recent episode lasted 2 Hours. The problem has been unchanged. The pain is located in the suprapubic region. The pain is at a severity of 3/10. The quality of the pain is aching, cramping and a sensation of fullness. The abdominal pain does not radiate. Associated symptoms include anorexia and flatus. Pertinent negatives include no arthralgias, belching, constipation, diarrhea, dysuria, fever, frequency, headaches, hematochezia, hematuria, melena, myalgias, nausea, vomiting or weight loss. The pain is aggravated by eating. The pain is relieved by Recumbency. Prior diagnostic workup includes ultrasound. Review of Systems Constitutional: Negative for appetite change, fever, unexpected weight change and weight loss. HENT: Negative for trouble swallowing and voice change. Respiratory: Negative for shortness of breath. Cardiovascular: Negative for chest pain. Gastrointestinal: Positive for abdominal pain, anorexia and flatus. Negative for abdominal distention, anal bleeding, blood in stool, constipation, diarrhea, hematochezia, melena, nausea, rectal pain and vomiting. Genitourinary: Negative for difficulty urinating, dysuria, frequency and hematuria. Musculoskeletal: Negative for arthralgias and myalgias. Skin: Negative for color change. Neurological: Negative for weakness and headaches. Allergies Allergen Reactions Cholestatin Other Other Other Nasal congestion Penicillins Hives, Other and Rash Outpatient Medications Prior to Visit Medication Sig Dispense Refill MV-Min-Fe Fum-FA-DHA ( 1 PO) Take by mouth. Deisi 0.25-35 MG-MCG tablet Take 1 tablet by mouth daily. No facility-administered medications prior to visit. There are no problems to display for this patient. Social History Tobacco Use Smoking status: Never Smokeless tobacco: Never Substance Use Topics Alcohol use: Yes Alcohol/week: 4.0 standard drinks Types: 2 Glasses of wine, 2 Cans of beer per week Family History Problem Relation Name Age of Onset Cancer Mother Arina Mccullough-Stomach Cancer stomach Cancer Maternal Grandfather Magdaleno Schaefer-Pancreatic Cancer pancreatic Diabetes Maternal Grandfather Magdaleno Schaefer-Pancreatic Cancer Objective BP 118/79 Pulse 68 Ht 5' 5 (1.651 m) Wt 120 lb 9.6 oz (54.7 kg) BMI 20.07 kg/m Physical Exam Constitutional: Appearance: Normal appearance. HENT: Head: Normocephalic. Eyes: General: No scleral icterus. Cardiovascular: Rate and Rhythm: Normal rate and regular rhythm. Pulmonary: Effort: Pulmonary effort is normal. Breath sounds: Normal breath sounds. Abdominal: General: Bowel sounds are normal. There is no distension. Palpations: Abdomen is soft. There is no mass. Tenderness: There is abdominal tenderness (mid abdominal ttp). There is no guarding or rebound. Hernia: No hernia is present. Skin: General: Skin is warm and dry. Coloration: Skin is not jaundiced. Neurological: General: No focal deficit present. Mental Status: She is alert and oriented to person, place, and time. Psychiatric: Mood and Affect: Mood normal. Behavior: Behavior normal. Data Reviewed and Summarized Labs: Imaging/Testin07/31/2022 MRI Pelvis (in [facility]) VINNIE Blevins 10:31 AM 10/09/22 documented in this encounter [facility] 10-09-2022 Instructions Richard Carter - 10/09/2022 9:20 AM EDT --Please call office with any questions or concerns! [phone] --recommend low FODMAP diet --Schedule EGD (upper endoscopy) for further evaluation of the symptoms.Scheduled on 11/07/2022 at 9:[address] Angeles in [place], Arrive at 8:00 am CASE#[id number] --Begin medication: famotidine 20 mg two times per day --Avoid nonsteroidal anti-inflammatory (NSAID) medications such as ibuprofen (Advil), naproxen (Aleve), etc. These can contribute to abdominal pain and ulcers. Take Tylenol (acetaminophen) instead if needed for pain by following the instructions on the bottle. --Please see handout provided regarding additional recommendations for the symptoms including when to seek emergency care or further treatment. --Follow-up with PCP, and in GI clinic as needed. The following attachments cannot be sent through Care Everywhere.Upper GI Endoscopy ([place])Gas and Bloating ([place])documented in this encounter [facility] 09-19-2022 Note Addended by: GRETEL DAY on: 09/19/2022 02:33 PM Modules accepted: Orders [facility] 09-19-2022 Note Addended by: GRETEL DAY on: 09/19/2022 02:33 PM Modules accepted: Orders [facility] 09-19-2022 Miscellaneous Notes Addended by: GRETEL DAY on: 09/19/2022 02:33 PM Modules accepted: Orders Discussed results with patient showing normal urethrogram. Overall I have a low suspicion for urethral diverticulum. 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 Reviewed options of surgical excision vs observation. Observation is reasonable at this time and patient is in agreement. Symptoms of enlarging cyst or worsening urinary symptoms should prompt follow up evaluation. Patient expressed understanding and agreement. Pt also requests referral to GI for evaluation of persistent abdominal pain. Referral placed. Gretel Day MD Results scanned. Pt states she had this done last Sunday. I send ROR request for VCUG. Thanks. Please confirm with patient that her VCUG has been scheduled. Please obtain results when available. Gretel Day MD No Auth required for testing I spoke with the patient and reviewed that I will call [facility] in scheduling the patient for the procedure. I was transferred to scheduling and was advised to fax the order and they will call the patient to schedule the appointment, however we need to see if her insurance requires a prior authorization. I spoke with Yair and notified her that [facility] will be calling her for the appointment. Patient acknowledged. We will call the patient's insurance to verify if prior authorization is indicated. Has VCUG been done at [place]? Please follow up with patient and obtain results from [place]. Gretel Day MD Please follow up with pt. Was she able to schedule VCUG in [place]? Gretel Day MD Addended by: GRETEL DAY on: 08/25/2022 11:36 AM Modules accepted: Orders Called and spoke with pt. MRI results reviewed and discussed. 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 Pt prefers to schedule at [facility]. Gretel Day MD Called pt to discuss. No answer. Left message to return my call. Gretel Day MD Records for MRI has been scanned in media. Thank you. documented in this encounter [facility] 09-19-2022 Telephone encounter Note Discussed results with patient showing normal urethrogram. Overall I have a low suspicion for urethral diverticulum. 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 Reviewed options of surgical excision vs observation. Observation is reasonable at this time and patient is in agreement. Symptoms of enlarging cyst or worsening urinary symptoms should prompt follow up evaluation. Patient expressed understanding and agreement. Pt also requests referral to GI for evaluation of persistent abdominal pain. Referral placed. Gretel Day MD [facility] 09-19-2022 Telephone encounter Note Results scanned. [facility] 09-18-2022 Telephone encounter Note Pt states she had this done last Sunday. I send ROR request for VCUG. Thanks. [facility] 09-18-2022 Miscellaneous Notes Pt states she had this done last Sunday. I send ROR request for VCUG. Thanks. Please confirm with patient that her VCUG has been scheduled. Please obtain results when available. Gretel Day MD No Auth required for testing I spoke with the patient and reviewed that I will call [facility] in scheduling the patient for the procedure. I was transferred to scheduling and was advised to fax the order and they will call the patient to schedule the appointment, however we need to see if her insurance requires a prior authorization. I spoke with Yair and notified her that [facility] will be calling her for the appointment. Patient acknowledged. We will call the patient's insurance to verify if prior authorization is indicated. Has VCUG been done at [place]? Please follow up with patient and obtain results from [place]. Gretel Day MD Please follow up with pt. Was she able to schedule VCUG in [place]? Gretel Day MD Addended by: GRETEL DAY on: 08/25/2022 11:36 AM Modules accepted: Orders Called and spoke with pt. MRI results reviewed and discussed. 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 Pt prefers to schedule at [facility]. Gretel Day MD Called pt to discuss. No answer. Left message to return my call. Gretel Day MD Records for MRI has been scanned in media. Thank you. documented in this encounter [facility] 09-18-2022 Telephone encounter Note Please confirm with patient that her VCUG has been scheduled. Please obtain results when available. Gretel Day MD [facility] 09-11-2022 Telephone encounter Note No Auth required for testing [facility] 09-11-2022 Miscellaneous Notes No Auth required for testing I spoke with the patient and reviewed that I will call [facility] in scheduling the patient for the procedure. I was transferred to scheduling and was advised to fax the order and they will call the patient to schedule the appointment, however we need to see if her insurance requires a prior authorization. I spoke with Yair and notified her that [facility] will be calling her for the appointment. Patient acknowledged. We will call the patient's insurance to verify if prior authorization is indicated. Has VCUG been done at [place]? Please follow up with patient and obtain results from [place]. Gretel Day MD Please follow up with pt. Was she able to schedule VCUG in [place]? Gretel Day MD Addended by: GRETEL DAY on: 08/25/2022 11:36 AM Modules accepted: Orders Called and spoke with pt. MRI results reviewed and discussed. 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 Pt prefers to schedule at [facility]. Gretel Day MD Called pt to discuss. No answer. Left message to return my call. Gretel Day MD Records for MRI has been scanned in media. Thank you. documented in this encounter [facility] 09-11-2022 Telephone encounter Note I spoke with the patient and reviewed that I will call [facility] in scheduling the patient for the procedure. I was transferred to scheduling and was advised to fax the order and they will call the patient to schedule the appointment, however we need to see if her insurance requires a prior authorization. I spoke with Yair and notified her that [facility] will be calling her for the appointment. Patient acknowledged. We will call the patient's insurance to verify if prior authorization is indicated. [facility] 09-08-2022 Telephone encounter Note Has VCUG been done at [place]? Please follow up with patient and obtain results from [place]. Gretel Day MD [facility] 09-08-2022 Miscellaneous Notes Has VCUG been done at [place]? Please follow up with patient and obtain results from [place]. Gretel Day MD Please follow up with pt. Was she able to schedule VCUG in [place]? Gretel Day MD Addended by: GRETEL DAY on: 08/25/2022 11:36 AM Modules accepted: Orders Called and spoke with pt. MRI results reviewed and discussed. 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 Pt prefers to schedule at [facility]. Gretel Day MD Called pt to discuss. No answer. Left message to return my call. Gretel Day MD Records for MRI has been scanned in media. Thank you. documented in this encounter [facility] 09-01-2022 Miscellaneous Notes Please follow up with pt. Was she able to schedule VCUG in [place]? Gretel Day MD Addended by: GRETEL DAY on: 08/25/2022 11:36 AM Modules accepted: Orders Called and spoke with pt. MRI results reviewed and discussed. 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 Pt prefers to schedule at [facility]. Gretel Day MD Called pt to discuss. No answer. Left message to return my call. Gretel Day MD Records for MRI has been scanned in media. Thank you. documented in this encounter [facility] 09-01-2022 Telephone encounter Note Please follow up with pt. Was she able to schedule VCUG in [place]? Gretel Day MD [facility] 08-25-2022 Note Addended by: GRETEL DAY on: 08/25/2022 11:36 AM Modules accepted: Orders [facility] 08-25-2022 Note Addended by: GRETEL DAY on: 08/25/2022 11:36 AM Modules accepted: Orders T [facility] 08-25-2022 Note Addended by: GRETEL DAY on: 08/25/2022 11:36 AM Modules accepted: Orders T [facility] 08-25-2022 Note Addended by: GRETEL DAY on: 08/25/2022 11:36 AM Modules accepted: Orders T [facility] 08-25-2022 Note Addended by: GRETEL DAY on: 08/25/2022 11:36 AM Modules accepted: Orders T [facility] 08-25-2022 Note Addended by: GRETEL DAY on: 08/25/2022 11:36 AM Modules accepted: Orders T [facility] 08-25-2022 Note Addended by: GRETEL DAY on: 08/25/2022 11:36 AM Modules accepted: Orders T [facility] 08-25-2022 Note Addended by: GRETEL DAY on: 08/25/2022 11:36 AM Modules accepted: Orders T [facility] 08-25-2022 Note Addended by: GRETEL DAY on: 08/25/2022 11:36 AM Modules accepted: Orders [facility] 08-25-2022 Note Addended by: GRETEL ADY on: 08/25/2022 11:36 AM Modules accepted: Orders [facility] 08-25-2022 Note Addended by: GRETEL DAY on: 08/25/2022 11:36 AM Modules accepted: Orders [facility] 08-25-2022 Note Addended by: GRETEL DAY on: 08/25/2022 11:36 AM Modules accepted: Orders [facility] 08-25-2022 Note Addended by: GRETEL DAY on: 08/25/2022 11:36 AM Modules accepted: Orders [facility] 08-25-2022 Note Addended by: GRETEL DAY on: 08/25/2022 11:36 AM Modules accepted: Orders [facility] 08-25-2022 Note Addended by: GRETEL DAY on: 08/25/2022 11:36 AM Modules accepted: Orders [facility] 08-25-2022 Miscellaneous Notes Addended by: GRETEL DAY on: 08/25/2022 11:36 AM Modules accepted: Orders Called and spoke with pt. MRI results reviewed and discussed. 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 Pt prefers to schedule at [facility]. Gretel Day MD Called pt to discuss. No answer. Left message to return my call. Gretel Day MD Records for MRI has been scanned in media. Thank you. documented in this encounter [facility] 08-25-2022 Telephone encounter Note Called and spoke with pt. MRI results reviewed and discussed. 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 Pt prefers to schedule at [facility]. Gretel Day MD [facility] 08-23-2022 Telephone encounter Note Called pt to discuss. No answer. Left message to return my call. Gretel Day MD [facility] 08-23-2022 Miscellaneous Notes Called pt to discuss. No answer. Left message to return my call. Gretel Day MD Records for MRI has been scanned in media. Thank you. documented in this encounter [facility] 08-16-2022 Telephone encounter Note Records for MRI has been scanned in media. Thank you. [facility] 08-16-2022 Note Sign record release for MRI results See GI for evaluation - get referral from Dr. 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 Referral was sent to you and scanned into [employer]. Please advise. [facility] Diagnosis Vaginal cyst- Primary Other specified noninflammatory disorder of vagina Urinary frequency [facility] Diagnosis Vaginal cyst- Primary Other specified noninflammatory disorder of vagina Urinary frequency [facility] Diagnosis Vaginal cyst- Primary Other specified noninflammatory disorder of vagina Urinary frequency [facility] Diagnosis Vaginal cyst- Primary Other specified noninflammatory disorder of vagina Urinary frequency documented in this encounter [facility] note* Diagnosis Vaginal cyst- Primary Other specified noninflammatory disorder of vagina Urinary frequency Lower abdominal pain Abdominal pain, other specified site [facility] Diagnosis Postprandial abdominal pain in left upper quadrant- Primary Abdominal bloating Flatulence, eructation, and gas pain Family history of gastric cancer Lower abdominal pain Abdominal pain, other specified site Postprandial abdominal pain in left upper quadrant Abdominal bloating Flatulence, eructation, and gas pain Lower abdominal pain Abdominal pain, other specified site [facility] Diagnosis Other congenital malformations of vagina- Primary Postprandial abdominal pain in left upper quadrant Abdominal bloating Flatulence, eructation, and gas pain Lower abdominal pain Abdominal pain, other specified site [facility] Diagnosis Postprandial abdominal pain in left upper quadrant Abdominal bloating Flatulence, eructation, and gas pain Lower abdominal pain Abdominal pain, other specified site documented in this encounter [facility] for referral (narrative)* Consultation (Routine) - Pending Review Specialty Diagnoses / Procedures Referred By Juany rubio Referred To Contact Gastroenterology Diagnoses Lower abdominal pain Procedures SC OFFICE/OUTPATIENT [facility] 60-74 MINUTES Gretel Day MD [address] [place] [address] [facility] [address] [place] [address] Referral ID Status Reason Start Date Expiration Date Visits Requested Visits Authorized [id number] Pending Review Specialty Services Required 09/19/2022 09/19/2023 1 1 [facility] Consultation (Routine) - Closed Specialty Diagnoses / Procedures Referred By Contac t Referred To Contact Urogynecology Diagnoses Other congenital malformations of vagina Procedures SC OFFICE/OUTPATIENT [facility] MDM 60-74 MINUTES [address] [place] [address] Gretel Day MD [address] [place] [address] Referral ID Status Reason Start Date Expiration Date V isits Requested Visits Authorized [id number] Closed Specialty Services Required 07/25/2022 07/25/2023 1 1 [employer] [facility] Summary Purpose Family History No Family History Records FoundNo Family History Records Found Advance Directives No Advanced Directives Records FoundNo Advanced Directives Records Found Additional Source Comments INFORMATION SOURCE (unrecogn ized section and content) DATE CREATED AUTHOR AUTHOR'S ORGANIZ ATION 11/08/2022 [facility] [employer] [facility] Reason for Visit (unrecogniz ed section and content) Reason Onset Date Comments Results 08/16/2022 Reason Comments Bloated Abdominal Pain Nausea Occ. After eating mo stly Specialty Diagnoses / Procedures Referred By Contac t Referred To Contact Gastroenterology Diagnoses Lower abdominal pain Procedures SC OFFICE/OUTPATIENT [facility] MDM 60-74 MINUTES Gretel Day MD [address] [place] [address] [facility] [address] [place] [address] Referral ID Status Reason Start Date Expiration Date Visits Requested Visits Authorized [id number] Pending Review Specialty Services Required 09/19/2022 09/19/2023 1 1 Care Teams (unrecognized sec tion and content) Human Resources Hr Generalist Relationship Specialty Start Date End Date Ailin Figueroa [address] [place] [phone] PCP - General Family Medicine 07/25/22 Human Resources Hr Generalist Relationship Specialty Start Date End Date Ailin Figueroa [address] [place] [phone] PCP - General Family Medicine 07/25/22 Human Resources Hr Generalist Relationship Specialty Start Date End Date Ailin Figueroa [address] [place] [address] PCP - General Family Medicine 07/25/22 Human Resources Hr Generalist Relationship Specialty Start Date End Date Ailin Figueroa [address] [place] [address] PCP - General Family Medicine 07/25/22 Human Resources Hr Generalist Relationship Specialty Start Date End Date Ailin Figueroa [address] [place] [address] PCP - General Family Medicine 07/25/22 Human Resources Hr Generalist Relationship Specialty Start Date End Date Ailin Figueroa [address] [place] [address] PCP - General Family Medicine 07/25/22 Human Resources Hr Generalist Relationship Specialty Start Date End Date Ailin Figueroa [address] [place] [address] PCP - General Family Medicine 07/25/22 Human Resources Hr Generalist Relationship Specialty Start Date End Date Ailin Figueroa [address] [place] [address] PCP - General Family Medicine 07/25/22 Human Resources Hr Generalist Relationship Specialty Start Date End Date Ailin Figueroa [address] [facility] [place] [phone] PCP - General Family Medicine 07/25/22 FOR RECORDS PERTAINING TO PATIENTS WHO ARE OR HAVE BEEN ENROLLED IN A CHEMICAL DEPENDENCY/SUBSTANCEABUSE PROGRAM, SOME INFORMATION MAY BE OMITTED. This clinical summary was aggregated from multiple sources. Caution should be exercised in using it in the provision of clinical care. This summary normalizes information from multiple sources, and as a consequence, information in this document may materially change the coding, format and clinical context of patient data. In addition, data may be omitted in some cases. CLINICAL DECISIONS SHOULD BE BASED ON THE PRIMARY CLINICAL RECORDS. [facility]. provides no warranty or guarantee of the accuracy or completeness of information in this document.
[2023-06-06 12:17] LABS: Absolute Lymphocyte Count 1.73 X10^3/uL (0.83-4.51); Absolute Neutrophil Count 2.4 X10^3/uL (2.0-7.7); Basophil# 0.03 X10^3/uL; Basophil% 0.7 % (0-1); Eosinophil# 0.06 X10^3/uL; Eosinophils% 1.3 % (0-5); Hematocrit 42.5 % (37-47); Hemoglobin 14.3 g/dL (12.0-15.0); Lymphocyte # 1.73 X10^3/ul (0.83-4.51); Lymphocyte % 37.6 % (19-41); Mean Corp Hgb Conc 33.6 g/dL (32-36); Mean Corpuscular Hgb 29.5 pg (27.0-32.0); Mean Corpuscular Volume 87.6 fL (81-99); Mean Platelet Vol. 10.9 fl (6.2-12.0); Monocyte# 0.42 X10^3/uL; Monocyte% 9.1 % (0-10); NRBC Flagged by Analyzer 0 % (0-5); Neutrophil # 2.35 X10^3/uL (2.7-7.7); Neutrophil % 51.1 % (47-70); Platelet Count 298 K/mm3 (150-450); RBC Distribution Width CV 11.8 % (11.6-14.6); RBC Distribution Width SD 37.3 fl (35.1-43.9); Red Blood Count 4.85 M/mm3 (4.2-5.4); White Blood Count 4.6 K/mm3 (4.4-11.0)
[2023-06-06 12:57] LABS: Progesterone Level 0.44 ng/mL (See Comment); Vitamin B12 305 pg/mL (211-911)
[2023-06-06 13:17] LABS: ALB/GLOB Ratio 1.4 RATIO (0.9-2.4); AST(SGOT) 20 U/L (15-37); Alanine Aminotransfer ALT/SGPT 26 U/L (13-56); Albumin, Serum 4.4 g/dL (3.2-5.0); Alkaline Phosphatase 110 U/L (45-117); Anion Gap 7 (5-15); BUN 16 mg/dL (7-18); BUN/Creat Ratio 21.2 RATIO (10-20); Chloride 110 mmol/L (98-107); Creatinine, Serum 0.75 mg/dL (0.55-1.02); EST Glomerular Filtration Rate 98 mL/min (>60); Est Glom Filt Rate - Afr Amer 118 mL/min (>60); Estradiol 49.5 pg/mL; Ferritin 29 ng/mL (8-252); Free T3 3.4 pg/mL (2.18-3.98); Globulin 3.2 g/dL (2.2-4.2); Glucose 76 mg/dL (74-106); Iron 131 ug/dL (50-170); Magnesium 2.5 mg/dL (1.6-2.6); Potassium 3.7 mmol/L (3.5-5.1); Protein, Total 7.6 g/dL (6.4-8.2); Sodium Level 143 mmol/L (136-145); T4 Total, Thyroxin 9.1 ug/dL (4.8-13.9); Thyroid Stim Hormone (TSH) 2.17 uIU/mL (0.358-3.74)
== END | disposition home or self-care (01) ==
LOC: BFHLAB 09:35
PROVIDERS: PCP Family Medicine; Visit Provider Family Medicine
DX: M62.838 Other muscle spasm (principal); R20.0 Anesthesia of skin; R20.2 Paresthesia of skin; N93.8 Other specified abnormal uterine and vaginal bleeding; D64.9 Anemia, unspecified; R53.83 Other fatigue
CPT/HCPCS: 36415; 80053; 82607; 82670; 82728; 83540; 83735; 84144; 84436; 84443; 84481; 85025

== ENCOUNTER → 2023-06-20 | Outpatient (CLI) | payer BC, SELFPAY ==
--- NOTE | 2023-06-20 10:15 | US_ITS ---
STUDY: ABDOMINAL ULTRASOUND - RIGHT UPPER QUADRANT REASON FOR VISIT: Female, 28 years old ELEVATED BILI TECHNIQUE: Ultrasound evaluation of the right upper quadrant was performed with real-time and static akins-scale imaging. TECHNICAL QUALITY: Adequate. COMPARISON: Comparison is made with prior ultrasound of the abdomen dated July 16, 2015. FINDINGS: Liver: The liver measures 12.6 cm. There is increased echogenicity consistent with fatty infiltration. The bile ducts are within normal limits. There is hepatic color flow. The direction of portal flow is hepatopetal. There is no demonstrated mass lesion. Gallbladder: Normal distended gallbladder. The gallbladder wall measures 1.9 mm. There is a negative sonographic Cedillo''s sign. There is no pericholecystic fluid. There are no gallstones. Common Bile Duct (C.B.D.): The common bile duct measures 2.5 mm. Pancreas: Normal size of the head, body and tail of the pancreas. There is normal echogenicity of the pancreas. There is no demonstrated pancreatic mass or cyst. Right Kidney: Normal size of the right kidney. The right kidney measures 9.4 cm x 4.7 cm x 3.2 cm. Normal renal cortex. The right cortex measures 1.1 cm. There is no demonstrated renal mass or cyst. There is no right hydronephrosis. US/Abdomen Limited IMPRESSION: Fatty infiltration of the liver. Electronically Signed: Jorge Luis Mandujano MD at 13:14 EST ,
--- OUTSIDE RECORDS SUMMARY | 2023-06-20 11:29 | XMS RPT_ITS | CCD ---
Author Name Unknown Address [address] [place] [address] Organization [facility] Care Team Providers Care Talent Acquisition Consultant Name Role Phone LIA MCDONALD (MANAGER TRAINING AND DEVELOPMENT) Unavailable Unavailable Ailin Figueroa Primary Care Provider [phone] Ailin Figueroa Primary Care Provider [phone] HENRY, AILIN Primary Care Unavailable GRETEL DAY Referring Unavailable KOBI DIAZ Attending Unavailable AILIN FIGUEROA Primary Care Unavailable GRETEL DAY Attending Unavailable CASS STEIN Referring Unavaila ble HENRY AILIN Primary Care Unavailable Allergies Allergy Classification Reported Allergen(s) Allergy Type Date of Onset Reaction(s) Facility (20 sources) Penicillins; Translations: [PENICILLINS] Propensity to adverse reactions to drug (disorder) 4 Hives, Other, Rash [facility] Repository (1 source) Seasonal allergy; Translations: [SEASONAL ALLERGIES] Propensity to adverse reactions (disorder) 4 AOF [facility] (20 sources) beta Sitosterol / ZINC CITRATE Drug Allergy 4 Other [facility] (20 sources) Other Allergy to substance 4 Other [facility] Medications Current Medications Medication Drug [...] temperature 97.5 [degF] Ailin Figueroa Work Phone: [facility] 11-07-2022 09:49-0400 Diastolic blood pressure 51 mm[Hg] Ailin Melloys Work Phone: [facility] 11-07-2022 09:49-0400 Heart rate 75 /min Ailin Melloys Work Phone: [facility] 11-07-2022 09:49-0400 Respiratory rate 16 /min Ailin Melloys Work Phone: [facility] 11-07-2022 09:49-0400 SaO2% (BldA) [Mass fraction] 98 % Ailin Henry Work Phone: [facility] 11-07-2022 09:49-0400 Systolic blood pressure 94 mm[Hg] Ailin Melloys Work Phone: [facility] 11-07-2022 08:22-0400 Body height 165.1 cm Ailin Melloys Work Phone: [facility] 11-07-2022 08:22-0400 Body mass index (BMI) [Ratio] 19.8 kg/m2 Ailin Melloys Work Phone: [facility] 11-07-2022 08:22-0400 Body weight 53.98 kg Ailin Melloys Work Phone: [facility] 10-09-2022 09:11-0400 Body height 165.1 cm Kobi Maximeer SUPERVISOR CELL ROOM - GAME PRESERVE MANAGER Work Phone: [facility] 10-09-2022 09:11-0400 Body mass index (BMI) [Ratio] 20.07 kg/m2 Kobi Forester SUPERVISOR CELL ROOM - GAME PRESERVE MANAGER Work Phone: [facility] 10-09-2022 09:11-0400 Body weight 54.7 kg Kobi Opp.ioer SUPERVISOR CELL ROOM - GAME PRESERVE MANAGER Work Phone: [facility] 10-09-2022 09:11-0400 Diastolic blood pressure 79 mm[Hg] Kobi Opp.ioer SUPERVISOR CELL ROOM - GAME PRESERVE MANAGER Work Phone: [facility] 10-09-2022 09:11-0400 Heart rate 68 /min Kobi Diaz SUPERVISOR CELL ROOM - GAME PRESERVE MANAGER Work Phone: [facility] 10-09-2022 09:11-0400 Systolic blood pressure 118 mm[Hg] Kobi Galvez PRN - GAME PRESERVE MANAGER Work Phone: [facility] Encounters Encounter Date Encounter Type Care Provider Facility Start: 11-07-2022 End: 11-08-2022 ambulatory AILIN HENRY [facility] Start: 11-07-2022 End: 11-07-2022 Subsequent hospital visit by physician Ailin Figueroa Work Phone: [facility] Procedures Date Procedure Procedure Detail Performing Clinician Start: 11-07-2022 Urine test visual color cmprsn meths Cristobal Day SUPERVISOR CELL ROOM - DIRECTIONAL DRILLER Work Phone: Plan of Treatment Date Care Activity Detail Author Start: 02-09-2046 Zoster Vaccines (1 of 2) Zoste r Vaccines (1 of 2) [facility] Start: 01-19-2023 Influenza vaccination Influenz a Vaccine (Season Ended) [facility] Start: 11-07-2022 End: 11-07-2022 Admission to same day surgery center [facility] Immunizations Immunization Date Immunization Notes Care Provider Fa harrison 02-17-2020 influenza virus vacc ine, unspecified formulation Gretel Day MD Work Phone: [facility] Payers Date Payer Category Payer Unknown LENY KENDRICK CROS S [employer] [id number] 2022-Present [address] [place] [address] Commercial [id number] 2022 Unknown [id number] Social History Date Type Detail Facility Start: 08-16-2022 Tobacco smoking stat us NHIS Never smoked tobacco [facility] Start: 08-16-2022 Tobacco use and exposure Smokeless t obacco non-user [facility] Start: 08-16-2022 End: 11-07-2022 Alcohol intake Current drinker of alcohol (finding) [facility] Start: 08-16-2022 End: 11-07-2022 Alcohol intake [facility] Start: 1995 Sex Assigned At Not on file S [facility] Start: 09-29-2022 End: 11-07-2022 Exposure to SARS-CoV-2 (event) Not sure [facility] Tobacco smoking stat us WVIS Tobacco smoking consumption unknown [facility] Start: 10-09-2022 End: 11-07-2022 Tobacco use panel [facility] Start: 11-03-2022 Alcohol Comment social [facility] Clinical Notes 07-25-2022 to 11-07-2022 Discharge InstructionsOp Note - Ignacio Wong MD - 11/07/2022 9:31 AM EDTPreprocedure Instructions - Candi Thomas RN - 11/07/2022 9:00 AM EDTOp Note - Ignacio Wong MD - 11/07/2022 9:31 AM EDT Note Date & Type Note Facility 11-07-2022 Note Patient: Yair Mccullough Procedure Summary Date: 11/07/22 Room / Location: [facility] / [facility] OR Anesthesia Start: [...] once all PACU criteria has been met. [facility] 11-07-2022 Note Patient: Yair Mccullough Procedure Summary Date: 11/07/22 Room / Location: [facility] / [facility] OR Anesthesia Start: 930 Anesthesia Stop: [...] opportunity for questions and acknowledgement of understanding. [facility] 11-07-2022 Note [facility] Pre-procedure Instructions Sleep Apnea: If yes, please bring CPAP machine May shower/brush teeth. Leave valuables/jewelry at home. No makeup, lotion, powder, deodorant or body sprays. No contact lenses No makeup, contact lenses, piercings, or dark nail ecuadorean No solid food after midnight before procedure. [...] to your arrival time. Please Bring your Key Bed Installer's license/photo ID, insurance card, eye drops/sunglasses, inhalers if applicable If you have a Medical Power of Patient Registration Rep, living will, or an advanced directive, please bring a copy with you. We are required to resuscitate and transfer you to the hospital along with your directive. [facility] 11-07-2022 Hospital Discharg e instructions Candi Thomas [...] OR CALL 911 documented in this encounter [facility] 11-07-2022 Note Attestation signed by [...] in LUQ Abdominal bloating Lower abdominal pain [facility] 11-07-2022 Miscellaneous Notes Images from the original note were not included. . [facility] [address], [address] [place] [address] Yair Mccullough 1995 ENDOSCOPY REPORT ESOPHAGOGASTRODUODENOSCOPY (EGD) [...] clinic or PCP. Judith VELA, FACG, FAGSE [facility] - Patient Pre-procedure Instructions Sleep Apnea: If yes, please bring CPAP machine May shower/brush teeth. Leave valuables/jewelry at home. No makeup, lotion, powder, deodorant or body sprays. No contact lenses No makeup, contact lenses, piercings, or dark nail ecuadorean No solid food after midnight before procedure. [...] to your arrival time. Please Bring your Key Bed Installer's license/photo ID, insurance card, eye drops/sunglasses, inhalers if applicable If you have a Medical Power of Patient Registration Rep, living will, or an advanced directive, please bring a copy with you. We are required to resuscitate and transfer you to the hospital along with your directive. documented in this encounter [facility] 11-07-2022 Note Formatting of this n ote might be different from the original. Images from the original note were not included. . [facility] [address], [address] [place] [address] Yair Mccullough 1995 ENDOSCOPY REPORT ESOPHAGOGASTRODUODENOSCOPY (EGD) [...] clinic or PCP. Judith VELA, FACG, FAGSE [facility] Work Phone: 11-07-2022 Note Formatting of this n ote might be different from the original. Images from the original note were not included. . [facility] [address], [address] [place] [address] Yair Mccullough 1995 ENDOSCOPY REPORT ESOPHAGOGASTRODUODENOSCOPY (EGD) [...] clinic or PCP. Judith VELA, FACG, FAGSE [employer] Phone: 11-07-2022 Note Formatting of this n ote might be different from the original. [facility] - Patient Pre-procedure Instructions Sleep Apnea: If yes, please bring CPAP machine May shower/brush teeth. Leave valuables/jewelry at home. No makeup, lotion, powder, deodorant or body sprays. No contact lenses No makeup, contact lenses, piercings, or dark nail ecuadorean No solid food after midnight before procedure. [...] to your arrival time. Please Bring your Key Bed Installer's license/photo ID, insurance card, eye drops/sunglasses, inhalers if applicable If you have a Medical Power of Patient Registration Rep, living will, or an advanced directive, please bring a copy with you. We are required to resuscitate and transfer you to the hospital along with your directive. [facility] 11-07-2022 Note Formatting of this n ote might be different from the original. [facility] - Patient Pre-procedure Instructions Sleep Apnea: If yes, please bring CPAP machine May shower/brush teeth. Leave valuables/jewelry at home. No makeup, lotion, powder, deodorant or body sprays. No contact lenses No makeup, contact lenses, piercings, or dark nail ecuadorean No solid food after midnight before procedure. [...] to your arrival time. Please Bring your Key Bed Installer's license/photo ID, insurance card, eye drops/sunglasses, inhalers if applicable If you have a Medical Power of Patient Registration Rep, living will, or an advanced directive, please bring a copy with you. We are required to resuscitate and transfer you to the hospital along with your directive. [facility] 11-07-2022 History and physical note [...] proceed with planned procedure. Judith VELA Gastroenterology [facility] 11-07-2022 History and physical note [...] Judith VELA Gastroenterology documented in this encounter [facility] 11-06-2022 Note Patient: Yair Mccullough Procedure Information Date/Time: 11/07/22 0900 Procedure: EGD DIAGNOSTIC - EGD 30 mins Location: [facility] 3 / [facility] Surgeons: [...] found for this or any previous visit. [facility] 10-09-2022 History of Presen t illness Narrative Images from the original note were not included. [facility] [address] [address] Dept: [phone] Dept Loc: [phone] Visit type: New Reason for Visit: Bloated, [...] and Summarized Labs: Imaging/Testin07/31/2022 MRI Pelvis (in [facility]) VINNIE Blevins 10:31 AM 10/09/22 documented in this encounter [facility] 10-09-2022 Instructions Richard Carter - 10/09/2022 9:20 AM EDT --Please call office with any questions or concerns! [phone] --recommend low FODMAP diet --Schedule EGD (upper endoscopy) for further evaluation of the symptoms.Scheduled on 11/07/2022 at 9:[address] Angeles in [place], Arrive at 8:00 am CASE#[id number] --Begin medication: famotidine 20 mg two times [...] be sent through Care Everywhere.Upper GI Endoscopy (Armenian)Gas and Bloating (Armenian)documented in this encounter [facility] 09-19-2022 Note Addended by: GRETEL DAY on: 09/19/2022 02:33 PM Modules accepted: Orders [facility] 09-19-2022 Note Addended by: GRETEL DAY on: 09/19/2022 02:33 PM Modules accepted: Orders [facility] 09-19-2022 Miscellaneous Notes Addended by: [...] patient and reviewed that I will call [facility] in scheduling the patient for the procedure. I was transferred to scheduling and was advised to fax the order and they will call the patient to schedule the appointment, however we need to see if her insurance requires a prior authorization. I spoke with Yair and notified her that [facility] will be calling her for the appointment. Patient acknowledged. We will call the patient's insurance to verify if prior authorization is indicated. Has VCUG been done at [place]? Please follow up with patient and obtain results from [place]. Gretel Day MD Please follow up with pt. Was she able to schedule VCUG in [place]? Gretel Day MD Addended by: GRETEL DAY on: 08/25/2022 11:36 AM Modules accepted: Orders Called and spoke with pt. MRI results reviewed and discussed. 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 Pt prefers to schedule at [facility]. Gretel Day MD Called pt to discuss. No answer. Left message to return my call. Gretel Day MD Records for MRI has been scanned in media. Thank you. documented in this encounter [facility] 09-19-2022 Telephone encounter Note Discussed [...] abdominal pain. Referral placed. Gretel Day MD [facility] 09-19-2022 Telephone encounter Note Results scanned. [facility] 09-18-2022 Telephone encounter Note Pt states she had this done last Sunday. I send ROR request for VCUG. Thanks. [facility] 09-18-2022 Miscellaneous Notes Pt states she had this done last Sunday. I send ROR request for VCUG. Thanks. Please confirm with patient that her VCUG has been scheduled. Please obtain results when available. Gretel Day MD No Auth required for testing I spoke with the patient and reviewed that I will call [facility] in scheduling the patient for the procedure. I was transferred to scheduling and was advised to fax the order and they will call the patient to schedule the appointment, however we need to see if her insurance requires a prior authorization. I spoke with Yair and notified her that [facility] will be calling her for the appointment. Patient acknowledged. We will call the patient's insurance to verify if prior authorization is indicated. Has VCUG been done at [place]? Please follow up with patient and obtain results from [place]. Gretel Day MD Please follow up with pt. Was she able to schedule VCUG in [place]? Gretel Day MD Addended by: GRETEL DAY on: 08/25/2022 11:36 AM Modules accepted: Orders Called and spoke with pt. MRI results reviewed and discussed. 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 Pt prefers to schedule at [facility]. Gretel Day MD Called pt to discuss. No answer. Left message to return my call. Gretel Day MD Records for MRI has been scanned in media. Thank you. documented in this encounter [facility] 09-18-2022 Telephone encounter Note Please confirm with patient that her VCUG has been scheduled. Please obtain results when available. Gretel Day MD [facility] 09-11-2022 Telephone encounter Note No Auth required for testing [facility] 09-11-2022 Miscellaneous Notes No Auth required for testing I spoke with the patient and reviewed that I will call [facility] in scheduling the patient for the procedure. I was transferred to scheduling and was advised to fax the order and they will call the patient to schedule the appointment, however we need to see if her insurance requires a prior authorization. I spoke with Yair and notified her that [facility] will be calling her for the appointment. Patient acknowledged. We will call the patient's insurance to verify if prior authorization is indicated. Has VCUG been done at [place]? Please follow up with patient and obtain results from [place]. Gretel Day MD Please follow up with pt. Was she able to schedule VCUG in [place]? Gretel Day MD Addended by: GRETEL DAY on: 08/25/2022 11:36 AM Modules accepted: Orders Called and spoke with pt. MRI results reviewed and discussed. 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 Pt prefers to schedule at [facility]. Gretel Day MD Called pt to discuss. No answer. Left message to return my call. Gretel Day MD Records for MRI has been scanned in media. Thank you. documented in this encounter [facility] 09-11-2022 Telephone encounter Note I spoke with the patient and reviewed that I will call [facility] in scheduling the patient for the procedure. I was transferred to scheduling and was advised to fax the order and they will call the patient to schedule the appointment, however we need to see if her insurance requires a prior authorization. I spoke with Yair and notified her that [facility] will be calling her for the appointment. Patient acknowledged. We will call the patient's insurance to verify if prior authorization is indicated. [facility] 09-08-2022 Telephone encounter Note Has VCUG been done at [place]? Please follow up with patient and obtain results from [place]. Gretel Day MD [facility] 09-08-2022 Miscellaneous Notes Has VCUG been done at [place]? Please follow up with patient and obtain results from [place]. Gretel Day MD Please follow up with pt. Was she able to schedule VCUG in [place]? Gretel Day MD Addended by: GRETEL DAY on: 08/25/2022 11:36 AM Modules accepted: Orders Called and spoke with pt. MRI results reviewed and discussed. 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 Pt prefers to schedule at [facility]. Gretel Day MD Called pt to discuss. No answer. Left message to return my call. Gretel Day MD Records for MRI has been scanned in media. Thank you. documented in this encounter [facility] 09-01-2022 Miscellaneous Notes Please follow up with pt. Was she able to schedule VCUG in [place]? Gretel Day MD Addended by: GRETEL DAY on: 08/25/2022 11:36 AM Modules accepted: Orders Called and spoke with pt. MRI results reviewed and discussed. 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 Pt prefers to schedule at [facility]. Gretel Day MD Called pt to discuss. No answer. Left message to return my call. Gretel Day MD Records for MRI has been scanned in media. Thank you. documented in this encounter [facility] 09-01-2022 Telephone encounter Note Please follow up with pt. Was she able to schedule VCUG in [place]? Gretel Day MD [facility] 08-25-2022 Note Addended by: GRETEL DAY on: 08/25/2022 11:36 AM Modules accepted: Orders [facility] 08-25-2022 Note Addended by: GRETEL DAY on: 08/25/2022 11:36 AM Modules accepted: Orders T [facility] 08-25-2022 Note Addended by: GRETEL DAY on: 08/25/2022 11:36 AM Modules accepted: Orders T [facility] 08-25-2022 Note Addended by: GRETEL DAY on: 08/25/2022 11:36 AM Modules accepted: Orders T [facility] 08-25-2022 Note Addended by: GRETEL DAY on: 08/25/2022 11:36 AM Modules accepted: Orders T [facility] 08-25-2022 Note Addended by: GRETEL DAY on: 08/25/2022 11:36 AM Modules accepted: Orders T [facility] 08-25-2022 Note Addended by: GRETEL DAY on: 08/25/2022 11:36 AM Modules accepted: Orders T [facility] 08-25-2022 Note Addended by: GRETEL DAY on: 08/25/2022 11:36 AM Modules accepted: Orders T [facility] 08-25-2022 Note Addended by: GRETEL DAY on: 08/25/2022 11:36 AM Modules accepted: Orders [facility] 08-25-2022 Note Addended by: GRETEL DAY on: 08/25/2022 11:36 AM Modules accepted: Orders [facility] 08-25-2022 Note Addended by: GRETEL DAY on: 08/25/2022 11:36 AM Modules accepted: Orders [facility] 08-25-2022 Note Addended by: GRETEL DAY on: 08/25/2022 11:36 AM Modules accepted: Orders [facility] 08-25-2022 Note Addended by: GRETEL DAY on: 08/25/2022 11:36 AM Modules accepted: Orders [facility] 08-25-2022 Note Addended by: GRETEL DAY on: 08/25/2022 11:36 AM Modules accepted: Orders [facility] 08-25-2022 Note Addended by: GRETEL DAY on: 08/25/2022 11:36 AM Modules accepted: Orders [facility] 08-25-2022 Miscellaneous Notes Addended by: GRETEL DAY on: 08/25/2022 11:36 AM Modules accepted: Orders Called and spoke with pt. MRI results reviewed and discussed. 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 Pt prefers to schedule at [facility]. Gretel Day MD Called pt to discuss. No answer. Left message to return my call. Gretel Day MD Records for MRI has been scanned in media. Thank you. documented in this encounter [facility] 08-25-2022 Telephone encounter Note Called and spoke with pt. MRI results reviewed and discussed. 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 Pt prefers to schedule at [facility]. Gretel Day MD [facility] 08-23-2022 Telephone encounter Note Called pt to discuss. No answer. Left message to return my call. Gretel Day MD [facility] 08-23-2022 Miscellaneous Notes Called pt to discuss. No answer. Left message to return my call. Gretel Day MD Records for MRI has been scanned in media. Thank you. documented in this encounter [facility] 08-16-2022 Telephone encounter Note Records for MRI has been scanned in media. Thank you. [facility] 08-16-2022 Note Sign record release for MRI results See GI for evaluation - get referral from Dr. 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 Referral was sent to you and scanned into [employer]. Please advise. [facility] Diagnosis Vaginal cyst- Primary Other specified noninflammatory disorder of vagina Urinary frequency [facility] Diagnosis Vaginal cyst- Primary Other specified noninflammatory disorder of vagina Urinary frequency [facility] Diagnosis Vaginal cyst- Primary Other specified noninflammatory disorder of vagina Urinary frequency [facility] Diagnosis Vaginal cyst- Primary Other specified noninflammatory disorder of vagina Urinary frequency documented in this encounter [facility] note* Diagnosis Vaginal cyst- Primary Other specified noninflammatory disorder of vagina Urinary frequency Lower abdominal pain Abdominal pain, other specified site [facility] [facility] note* Diagnosis Postprandial abdominal pain in left upper quadrant- Primary Abdominal bloating Flatulence, eructation, and gas pain Family history of gastric cancer Lower abdominal pain Abdominal pain, other specified site Postprandial abdominal pain in left upper quadrant Abdominal bloating Flatulence, eructation, and gas pain Lower abdominal pain Abdominal pain, other specified site [facility] Diagnosis Other congenital malformations of vagina- Primary Postprandial abdominal pain in left upper quadrant Abdominal bloating Flatulence, eructation, and gas pain Lower abdominal pain Abdominal pain, other specified site [facility] Diagnosis Postprandial abdominal pain in left upper quadrant Abdominal bloating Flatulence, eructation, and gas pain Lower abdominal pain Abdominal pain, other specified site documented in this encounter [facility] for referral (narrative)* Consultation (Routine) - Pending Review Specialty Diagnoses / Procedures Referred By Juany rubio Referred To Contact Gastroenterology Diagnoses Lower abdominal pain Procedures [place] OFFICE/OUTPATIENT [facility] 60-74 MINUTES Gretel Day MD [address] [place] [address] [facility] [address] [place] [address] Referral ID Status Reason Start Date Expiration Date Visits Requested Visits Authorized [id number] Pending Review Specialty Services Required 09/19/2022 09/19/2023 1 1 [facility] (narrative)* Consultation (Routine) - Closed Specialty Diagnoses / Procedures Referred By Contac t Referred To Contact Urogynecology Diagnoses Other congenital malformations of vagina Procedures [place] OFFICE/OUTPATIENT [facility] MDM 60-74 MINUTES [address] [place] [address] Gretel Day MD [address] [place] [address] Referral ID Status Reason Start Date Expiration Date V isits Requested Visits Authorized [id number] Closed Specialty Services Required 07/25/2022 07/25/2023 1 1 [facility] Summary Purpose Family History No Family History Records FoundNo Family History Records Found Advance Directives No Advanced Directives Records FoundNo Advanced Directives Records Found Additional Source Comments INFORMATION SOURCE (unrecogn ized section and content) DATE CREATED AUTHOR AUTHOR'S ORGANIZ ATION 11/08/2022 [facility] Reason for Visit (unrecogniz ed section and content) Reason Onset Date Comments Results 08/16/2022 Reason Comments Bloated Abdominal Pain Nausea Occ. After eating mo stly Specialty Diagnoses / Procedures Referred By Contac t Referred To Contact Gastroenterology Diagnoses Lower abdominal pain Procedures [place] OFF[facility]/OUTPATIENT [facility] MDM 60-74 MINUTES Gretel Day MD [address] [place] [address] [facility] [address] [place] [address] Referral ID Status Reason Start Date Expiration Date Visits Requested Visits Authorized [id number] Pending Review Specialty Services Required 09/19/2022 09/19/2023 1 1 Care Teams (unrecognized sec tion and content) Talent Acquisition Consultant Relationship Specialty Start Date End Date Ailin Figueroa [address] [place] [phone] PCP - General Family Medicine 07/25/22 Talent Acquisition Consultant Relationship Specialty Start Date End Date Ailin Figuero[place] [phone] PCP - General Family Medicine 07/25/22 Talent Acquisition Consultant Relationship Specialty Start Date End Date Ailin Fig[place] [address] PCP - General Family Medicine 07/25/22 Talent Acquisition Consultant Relationship Specialty Start Date End Date Ailin Fig[place]ero[place] [address] PCP - General Family Medicine 07/25/22 Talent Acquisition Consultant Relationship Specialty Start Date End Date Ailin Fig[place]ero[place] [address] PCP - General Family Medicine 07/25/22 Talent Acquisition Consultant Relationship Specialty Start Date End Date Ailin Fig[place]ero[place] [address] PCP - General Family Medicine 07/25/22 Talent Acquisition Consultant Relationship Specialty Start Date End Date Ailin Figuero[place] [address] PCP - General Family Medicine 07/25/22 Talent Acquisition Consultant Relationship Specialty Start Date End Date Ailin Figueroa [address] [place] [address] PCP - General Family Medicine 07/25/22 Talent Acquisition Consultant Relationship Specialty Start Date End Date Ailin Figueroa [address] [facility] [place] [phone] PCP - General Family Medicine 07/25/22 FOR [...] BE BASED ON THE PRIMARY CLINICAL RECORDS. [employer] [facility]. provides no warranty or guarantee of the accuracy or completeness of information in this document.
== END | disposition home or self-care (01) ==
LOC: US 10:13
PROVIDERS: PCP Family Medicine; Referring Provider Family Medicine; Visit Provider Family Medicine
DX: R10.9 Unspecified abdominal pain (principal); R17 Unspecified jaundice
CPT/HCPCS: 76705

== ENCOUNTER → 2023-06-26 | Outpatient (CLI) | payer BC, SELFPAY ==
[2023-06-26 18:07] LABS: AST(SGOT) 15 U/L (15-37); Alanine Aminotransfer ALT/SGPT 22 U/L (13-56); Albumin, Serum 4.2 g/dL (3.2-5.0); Alkaline Phosphatase 94 U/L (45-117); Bilirubin, Direct 0.39 mg/dL (0.00-0.30); GGTP 9 U/L (5-55); Globulin 3.2 g/dL (2.2-4.2); LDH 199 U/L (84-246); Protein, Total 7.4 g/dL (6.4-8.2)
--- OUTSIDE RECORDS SUMMARY | 2023-06-26 19:55 | XMS RPT_ITS | CCD ---
Author Name Unknown Address [address] [place] [address] Organization [facility] Care Team Providers Care Engine Mechanic Name Role Phone LIA MCDONALD (PROPERTY MANAGEMENT COORDINATOR) Unavailable Unavailable Ailin Figueroa Primary Care Provider [phone] Ailin Figueroa Primary Care Provider [phone] HENRY, AILIN Primary Care Unavailable GRETEL DAY Referring Unavailable KOBI DIAZ Attending Unavailable AILIN FIGUEROA Primary Care Unavailable GRETEL DAY Attending Unavailable CASS STEIN Referring Unavaila ble HENRY AILIN Primary Care Unavailable Allergies Allergy Classification Reported Allergen(s) Allergy Type Date of Onset Reaction(s) Facility (20 sources) Penicillins; Translations: [PENICILLINS] Propensity to adverse reactions to drug (disorder) 4 Hives, Other, Rash [facility] (1 source) Seasonal allergy; Translations: [SEASONAL ALLERGIES] Propensity to adverse reactions (disorder) 4 AOF [facility] (20 sources) beta Sitosterol / ZINC CITRATE Drug Allergy 4 Other [facility] (20 sources) Other Allergy to substance 4 Other [facility] Medications Current Medications Medication Drug Class(es) Dates [...] temperature 97.5 [degF] Ailin Figueroa Work Phone: [facility] 11-07-2022 09:49-0400 Diastolic blood pressure 51 mm[Hg] Ailin Melloys Work Phone: [facility] 11-07-2022 09:49-0400 Heart rate 75 /min Ailin Melloys Work Phone: [facility] 11-07-2022 09:49-0400 Respiratory rate 16 /min Ailin Melloys Work Phone: [facility] 11-07-2022 09:49-0400 SaO2% (BldA) [Mass fraction] 98 % Ailin Henry Work Phone: [facility] [employer] 11-07-2022 09:49-0400 Systolic blood pressure 94 mm[Hg] Ailin Melloys Work Phone: [facility] 11-07-2022 08:22-0400 Body height 165.1 cm Ailin Melloys Work Phone: [facility] 11-07-2022 08:22-0400 Body mass index (BMI) [Ratio] 19.8 kg/m2 Ailin Melloys Work Phone: [facility] 11-07-2022 08:22-0400 Body weight 53.98 kg Ailin Melloys Work Phone: [facility] 10-09-2022 09:11-0400 Body height 165.1 cm Kobi Maximeer CLERK ANALYST - STOVE POLISHER Work Phone: [facility] 10-09-2022 09:11-0400 Body mass index (BMI) [Ratio] 20.07 kg/m2 Kobi Forester CLERK ANALYST - STOVE POLISHER Work Phone: [facility] 10-09-2022 09:11-0400 Body weight 54.7 kg Kobi Ipsumer CLERK ANALYST - STOVE POLISHER Work Phone: [facility] [employer] 10-09-2022 09:11-0400 Diastolic blood pressure 79 mm[Hg] Kobi Ipsumer CLERK ANALYST - STOVE POLISHER Work Phone: [facility] [employer] 10-09-2022 09:11-0400 Heart rate 68 /min Kobi Diaz CLERK ANALYST - STOVE POLISHER Work Phone: [facility] 10-09-2022 09:11-0400 Systolic blood pressure 118 mm[Hg] Kobi Galvze PRN - STOVE POLISHER Work Phone: [facility] Encounters Encounter Date Encounter Type Care Provider Facility Start: 11-07-2022 End: 11-08-2022 ambulatory AILIN HENRY [facility] Start: 11-07-2022 End: 11-07-2022 Subsequent hospital visit by physician Ailin Figueroa Work Phone: [facility] Procedures Date Procedure Procedure Detail Performing Clinician Start: 11-07-2022 Urine test visual color cmprsn meths Cristobal Day CLERK ANALYST - MARINE SERVICE MANAGER Work Phone: Plan of Treatment Date Care Activity Detail Author Start: 02-09-2046 Zoster Vaccines (1 of 2) Zoste r Vaccines (1 of 2) [facility] Start: 01-19-2023 Influenza vaccination Influenz a Vaccine (Season Ended) [facility] Start: 11-07-2022 End: 11-07-2022 Admission to same day surgery center [facility] Immunizations Immunization Date Immunization Notes Care Provider Fa harrison 02-17-2020 influenza virus vacc ine, unspecified formulation Gretel Day MD Work Phone: [facility] Payers Date Payer Category Payer Unknown LENY KENDRICK CROS S [employer] [id number] 2022-Present [address] [place] [address] Commercial [id number] 2022 Unknown [id number] Social History Date Type Detail Facility Start: 08-16-2022 Tobacco smoking stat us NHIS Never smoked tobacco [facility] Start: 08-16-2022 Tobacco use and exposure Smokeless t obacco non-user [facility] Start: 08-16-2022 End: 11-07-2022 Alcohol intake Current drinker of alcohol (finding) [facility] Start: 08-16-2022 End: 11-07-2022 Alcohol intake [facility] Start: 1995 Sex Assigned At Not on file [facility] Start: 09-29-2022 End: 11-07-2022 Exposure to SARS-CoV-2 (event) Not sure [facility] Tobacco smoking stat us MIIS Tobacco smoking consumption unknown [facility] Start: 10-09-2022 End: 11-07-2022 Tobacco use panel [facility] Start: 11-03-2022 Alcohol Comment social [facility] Clinical Notes 07-25-2022 to 11-07-2022 Discharge InstructionsOp Note - Ignacio Wong MD - 11/07/2022 9:31 AM EDTPreprocedure Instructions - Candi Thomas RN - 11/07/2022 9:00 AM EDTOp Note - Ignacio Wong MD - 11/07/2022 9:31 AM EDT Note Date & Type Note Facility 11-07-2022 Note Patient: Yair Mccullough Procedure Summary Date: 11/07/22 Room / Location: [facility] OR Anesthesia Start: [...] once all PACU criteria has been met. [facility] 11-07-2022 Note Patient: Yair Mccullough Procedure Summary Date: 11/07/22 Room / Location: [facility] Anesthesia Start: 930 Anesthesia Stop: [...] opportunity for questions and acknowledgement of understanding. [facility] 11-07-2022 Note [facility] Pre-procedure Instructions Sleep Apnea: If yes, please bring CPAP machine May shower/brush teeth. Leave valuables/jewelry at home. No makeup, lotion, powder, deodorant or body sprays. No contact lenses No makeup, contact lenses, piercings, or dark nail senegalese No solid food after midnight before procedure. [...] to your arrival time. Please Bring your Data Processing Manager's license/photo ID, insurance card, eye drops/sunglasses, inhalers if applicable If you have a Medical Power of Doughnut Batter Mixer, living will, or an advanced directive, please bring a copy with you. We are required to resuscitate and transfer you to the hospital along with your directive. [facility] 11-07-2022 Hospital Discharg e instructions Candi [...] OR CALL 911 documented in this encounter [facility] 11-07-2022 Note Attestation signed by Ignacio Wong [...] in LUQ Abdominal bloating Lower abdominal pain [facility] 11-07-2022 Miscellaneous Notes Images from the original note were not included. . [facility] [address], [address] [place] [address] Yair Mccullough 1995 ENDOSCOPY REPORT ESOPHAGOGASTRODUODENOSCOPY (EGD) [...] clinic or PCP. Judith VELA, FACG, FAGSE [facility] - Patient Pre-procedure Instructions Sleep Apnea: If yes, please bring CPAP machine May shower/brush teeth. Leave valuables/jewelry at home. No makeup, lotion, powder, deodorant or body sprays. No contact lenses No makeup, contact lenses, piercings, or dark nail senegalese No solid food after midnight before procedure. [...] to your arrival time. Please Bring your Data Processing Manager's license/photo ID, insurance card, eye drops/sunglasses, inhalers if applicable If you have a Medical Power of Doughnut Batter Mixer, living will, or an advanced directive, please bring a copy with you. We are required to resuscitate and transfer you to the hospital along with your directive. documented in this encounter [facility] 11-07-2022 Note Formatting of this n ote might be different from the original. Images from the original note were not included. . [facility] [address], [address] [place] [address] Yair Mccullough 1995 ENDOSCOPY REPORT ESOPHAGOGASTRODUODENOSCOPY (EGD) [...] clinic or PCP. Judith VELA, FACG, FAGSE [facility] Work Phone: 11-07-2022 Note Formatting of this n ote might be different from the original. Images from the original note were not included. . [facility] [address], [address] [place] [address] Yair Mccullough 1995 ENDOSCOPY REPORT ESOPHAGOGASTRODUODENOSCOPY (EGD) [...] clinic or PCP. Judith VELA, FACG, FAGSE [facility] Phone: 11-07-2022 Note Formatting of this n ote might be different from the original. [facility] - Patient Pre-procedure Instructions Sleep Apnea: If yes, please bring CPAP machine May shower/brush teeth. Leave valuables/jewelry at home. No makeup, lotion, powder, deodorant or body sprays. No contact lenses No makeup, contact lenses, piercings, or dark nail senegalese No solid food after midnight before procedure. [...] to your arrival time. Please Bring your Data Processing Manager's license/photo ID, insurance card, eye drops/sunglasses, inhalers if applicable If you have a Medical Power of Doughnut Batter Mixer, living will, or an advanced directive, please bring a copy with you. We are required to resuscitate and transfer you to the hospital along with your directive. [facility] 11-07-2022 Note Formatting of this n ote might be different from the original. [facility] - Patient Pre-procedure Instructions Sleep Apnea: If yes, please bring CPAP machine May shower/brush teeth. Leave valuables/jewelry at home. No makeup, lotion, powder, deodorant or body sprays. No contact lenses No makeup, contact lenses, piercings, or dark nail senegalese No solid food after midnight before procedure. [...] to your arrival time. Please Bring your Data Processing Manager's license/photo ID, insurance card, eye drops/sunglasses, inhalers if applicable If you have a Medical Power of Doughnut Batter Mixer, living will, or an advanced directive, please bring a copy with you. We are required to resuscitate and transfer you to the hospital along with your directive. [facility] 11-07-2022 History and physical note Subjective Yair [...] proceed with planned procedure. Judith VELA Gastroenterology [facility] 11-07-2022 History and physical note Subjective Yair [...] Judith VELA Gastroenterology documented in this encounter [facility] 11-06-2022 Note Patient: Yair Mccullough Procedure Information Date/Time: 11/07/22 0900 Procedure: EGD DIAGNOSTIC - EGD 30 mins Location: [facility] 3 / [facility] Surgeons: [...] found for this or any previous visit. [facility] 10-09-2022 History of Presen t illness Narrative Images from the original note were not included. [facility] [address] [address] Dept: [phone] Dept Loc: [phone] Visit type: New Reason for Visit: Bloated, [...] and Summarized Labs: Imaging/Testin07/31/2022 MRI Pelvis (in [facility]) VINNIE Blevins 10:31 AM 10/09/22 documented in this encounter [facility] 10-09-2022 Instructions Richard Carter - 10/09/2022 9:20 AM EDT --Please call office with any questions or concerns! [phone] --recommend low FODMAP diet --Schedule EGD (upper endoscopy) for further evaluation of the symptoms.Scheduled on 11/07/2022 at 9:[address] Angeles in [place], Arrive at 8:00 am CASE#[id number] --Begin medication: famotidine 20 mg two times [...] be sent through Care Everywhere.Upper GI Endoscopy ([place])Gas and Bloating ([place])documented in this encounter [facility] 09-19-2022 Note Addended by: GRETEL DAY on: 09/19/2022 02:33 PM Modules accepted: Orders [facility] 09-19-2022 Note Addended by: GRETEL DAY on: 09/19/2022 02:33 PM Modules accepted: Orders [facility] 09-19-2022 Miscellaneous Notes Addended by: GRETEL DAY [...] patient and reviewed that I will call [facility] in scheduling the patient for the procedure. I was transferred to scheduling and was advised to fax the order and they will call the patient to schedule the appointment, however we need to see if her insurance requires a prior authorization. I spoke with Yair and notified her that [facility] will be calling her for the appointment. Patient acknowledged. We will call the patient's insurance to verify if prior authorization is indicated. Has VCUG been done at [place]? Please follow up with patient and obtain results from [place]. Gretel Day MD Please follow up with pt. Was she able to schedule VCUG in [place]? Gretel Day MD Addended by: GRETEL DAY on: 08/25/2022 11:36 AM Modules accepted: Orders Called and spoke with pt. MRI results reviewed and discussed. 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 Pt prefers to schedule at [facility]. Gretel Day MD Called pt to discuss. No answer. Left message to return my call. Gretel Day MD Records for MRI has been scanned in media. Thank you. documented in this encounter [facility] 09-19-2022 Telephone encounter Note Discussed results with [...] abdominal pain. Referral placed. Gretel Day MD [facility] 09-19-2022 Telephone encounter Note Results scanned. [facility] 09-18-2022 Telephone encounter Note Pt states she had this done last Sunday. I send ROR request for VCUG. Thanks. [facility] 09-18-2022 Miscellaneous Notes Pt states she had this done last Sunday. I send ROR request for VCUG. Thanks. Please confirm with patient that her VCUG has been scheduled. Please obtain results when available. Gretel Day MD No Auth required for testing I spoke with the patient and reviewed that I will call [facility] in scheduling the patient for the procedure. I was transferred to scheduling and was advised to fax the order and they will call the patient to schedule the appointment, however we need to see if her insurance requires a prior authorization. I spoke with Yair and notified her that [facility] will be calling her for the appointment. Patient acknowledged. We will call the patient's insurance to verify if prior authorization is indicated. Has VCUG been done at [place]? Please follow up with patient and obtain results from [place]. Gretel Day MD Please follow up with pt. Was she able to schedule VCUG in [place]? Gretel Day MD Addended by: GRETEL DAY on: 08/25/2022 11:36 AM Modules accepted: Orders Called and spoke with pt. MRI results reviewed and discussed. 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 Pt prefers to schedule at [facility]. Gretel Day MD Called pt to discuss. No answer. Left message to return my call. Gretel Day MD Records for MRI has been scanned in media. Thank you. documented in this encounter [facility] 09-18-2022 Telephone encounter Note Please confirm with patient that her VCUG has been scheduled. Please obtain results when available. Gretel Day MD [facility] 09-11-2022 Telephone encounter Note No Auth required for testing [facility] 09-11-2022 Miscellaneous Notes No Auth required for testing I spoke with the patient and reviewed that I will call [facility] in scheduling the patient for the procedure. I was transferred to scheduling and was advised to fax the order and they will call the patient to schedule the appointment, however we need to see if her insurance requires a prior authorization. I spoke with Yair and notified her that [facility] will be calling her for the appointment. Patient acknowledged. We will call the patient's insurance to verify if prior authorization is indicated. Has VCUG been done at [place]? Please follow up with patient and obtain results from [place]. Gretel Day MD Please follow up with pt. Was she able to schedule VCUG in [place]? Gretel Day MD Addended by: GRETEL DAY on: 08/25/2022 11:36 AM Modules accepted: Orders Called and spoke with pt. MRI results reviewed and discussed. 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 Pt prefers to schedule at [facility]. Gretel Day MD Called pt to discuss. No answer. Left message to return my call. Gretel Day MD Records for MRI has been scanned in media. Thank you. documented in this encounter [facility] 09-11-2022 Telephone encounter Note I spoke with the patient and reviewed that I will call [facility] in scheduling the patient for the procedure. I was transferred to scheduling and was advised to fax the order and they will call the patient to schedule the appointment, however we need to see if her insurance requires a prior authorization. I spoke with Yair and notified her that [facility] will be calling her for the appointment. Patient acknowledged. We will call the patient's insurance to verify if prior authorization is indicated. [facility] 09-08-2022 Telephone encounter Note Has VCUG been done at [place]? Please follow up with patient and obtain results from [place]. Gretel Day MD [facility] 09-08-2022 Miscellaneous Notes Has VCUG been done at [place]? Please follow up with patient and obtain results from [place]. Gretel Day MD Please follow up with pt. Was she able to schedule VCUG in [place]? Gretel Day MD Addended by: GRETEL DAY on: 08/25/2022 11:36 AM Modules accepted: Orders Called and spoke with pt. MRI results reviewed and discussed. 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 Pt prefers to schedule at [facility]. Gretel Day MD Called pt to discuss. No answer. Left message to return my call. Gretel Day MD Records for MRI has been scanned in media. Thank you. documented in this encounter [facility] 09-01-2022 Miscellaneous Notes Please follow up with pt. Was she able to schedule VCUG in [place]? Gretel Day MD Addended by: GRETEL DAY on: 08/25/2022 11:36 AM Modules accepted: Orders Called and spoke with pt. MRI results reviewed and discussed. 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 Pt prefers to schedule at [facility]. Gretel Day MD Called pt to discuss. No answer. Left message to return my call. Gretel Day MD Records for MRI has been scanned in media. Thank you. documented in this encounter [facility] 09-01-2022 Telephone encounter Note Please follow up with pt. Was she able to schedule VCUG in [place]? Gretel Day MD [facility] 08-25-2022 Note Addended by: GRETEL DAY on: 08/25/2022 11:36 AM Modules accepted: Orders [facility] 08-25-2022 Note Addended by: GRETEL DAY on: 08/25/2022 11:36 AM Modules accepted: Orders T [facility] 08-25-2022 Note Addended by: GRETEL DAY on: 08/25/2022 11:36 AM Modules accepted: Orders T [facility] 08-25-2022 Note Addended by: GRETEL DAY on: 08/25/2022 11:36 AM Modules accepted: Orders T [facility] 08-25-2022 Note Addended by: GRETEL DAY on: 08/25/2022 11:36 AM Modules accepted: Orders T [facility] 08-25-2022 Note Addended by: GRETEL DAY on: 08/25/2022 11:36 AM Modules accepted: Orders T [facility] 08-25-2022 Note Addended by: GRETEL DAY on: 08/25/2022 11:36 AM Modules accepted: Orders T [facility] 08-25-2022 Note Addended by: GRETEL DAY on: 08/25/2022 11:36 AM Modules accepted: Orders T [facility] 08-25-2022 Note Addended by: GRETEL DAY on: 08/25/2022 11:36 AM Modules accepted: Orders [facility] 08-25-2022 Note Addended by: GRETEL DAY on: 08/25/2022 11:36 AM Modules accepted: Orders [facility] 08-25-2022 Note Addended by: GRETEL DAY on: 08/25/2022 11:36 AM Modules accepted: Orders [facility] 08-25-2022 Note Addended by: GRETEL DAY on: 08/25/2022 11:36 AM Modules accepted: Orders [facility] 08-25-2022 Note Addended by: GRETEL DAY on: 08/25/2022 11:36 AM Modules accepted: Orders [facility] 08-25-2022 Note Addended by: GRETEL DAY on: 08/25/2022 11:36 AM Modules accepted: Orders [facility] 08-25-2022 Note Addended by: GRETEL DAY on: 08/25/2022 11:36 AM Modules accepted: Orders [facility] 08-25-2022 Miscellaneous Notes Addended by: GRETEL DAY on: 08/25/2022 11:36 AM Modules accepted: Orders Called and spoke with pt. MRI results reviewed and discussed. 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 Pt prefers to schedule at [facility]. Gretel Day MD Called pt to discuss. No answer. Left message to return my call. Gretel Day MD Records for MRI has been scanned in media. Thank you. documented in this encounter [facility] 08-25-2022 Telephone encounter Note Called and spoke with pt. MRI results reviewed and discussed. 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 Pt prefers to schedule at [facility]. Gretel Day MD [facility] 08-23-2022 Telephone encounter Note Called pt to discuss. No answer. Left message to return my call. Gretel Day MD [facility] 08-23-2022 Miscellaneous Notes Called pt to discuss. No answer. Left message to return my call. Gretel Day MD Records for MRI has been scanned in media. Thank you. documented in this encounter [facility] 08-16-2022 Telephone encounter Note Records for MRI has been scanned in media. Thank you. [facility] 08-16-2022 Note Sign record release for MRI results See GI for evaluation - get referral from Dr. 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 Referral was sent to you and scanned into [facility]. Please advise. [facility] Diagnosis Vaginal cyst- Primary Other specified noninflammatory disorder of vagina Urinary frequency [facility] [place] Diagnosis Vaginal cyst- Primary Other specified noninflammatory disorder of vagina Urinary frequency [facility] [place] [facility] Diagnosis Vaginal cyst- Primary Other specified noninflammatory disorder of vagina Urinary frequency [facility] [place] Diagnosis Vaginal cyst- Primary Other specified noninflammatory disorder of vagina Urinary frequency documented in this encounter [facility] note* Diagnosis Vaginal cyst- Primary Other specified noninflammatory disorder of vagina Urinary frequency Lower abdominal pain Abdominal pain, other specified site [facility] Diagnosis Postprandial abdominal pain in left upper quadrant- Primary Abdominal bloating Flatulence, eructation, and gas pain Family history of gastric cancer Lower abdominal pain Abdominal pain, other specified site Postprandial abdominal pain in left upper quadrant Abdominal bloating Flatulence, eructation, and gas pain Lower abdominal pain Abdominal pain, other specified site [facility] [place] Diagnosis Other congenital malformations of vagina- Primary Postprandial abdominal pain in left upper quadrant Abdominal bloating Flatulence, eructation, and gas pain Lower abdominal pain Abdominal pain, other specified site [facility] [place] Diagnosis Postprandial abdominal pain in left upper quadrant Abdominal bloating Flatulence, eructation, and gas pain Lower abdominal pain Abdominal pain, other specified site documented in this encounter [facility] for referral (narrative)* Consultation (Routine) - Pending Review Specialty Diagnoses / Procedures Referred By Juany rubio Referred To Contact Gastroenterology Diagnoses Lower abdominal pain Procedures [place] OFFICE/OUTPATIENT [facility] 60-74 MINUTES Gretel Day MD [address] [place] [address] [facility] [address] [place] [address] Referral ID Status Reason Start Date Expiration Date Visits Requested Visits Authorized [id number] Pending Review Specialty Services Required 09/19/2022 09/19/2023 1 1 [facility] Consultation (Routine) - Closed Specialty Diagnoses / Procedures Referred By Contac t Referred To Contact Urogynecology Diagnoses Other congenital malformations of vagina Procedures [place] OFFICE/OUTPATIENT [facility] MDM 60-74 MINUTES Cass Stein [address] [place] [address] Gretel Day MD [address] [place] [address] Referral ID Status Reason Start Date Expiration Date V isits Requested Visits Authorized [id number] Closed Specialty Services Required 07/25/2022 07/25/2023 1 1 [employer] [facility] Summary Purpose Family History No Family History Records FoundNo Family History Records Found Advance Directives No Advanced Directives Records FoundNo Advanced Directives Records Found Additional Source Comments INFORMATION SOURCE (unrecogn ized section and content) DATE CREATED AUTHOR AUTHOR'S ORGANIZ ATION 11/08/2022 [facility] [employer] [facility] Reason for Visit (unrecogniz ed section and content) Reason Onset Date Comments Results 08/16/2022 Reason Comments Bloated Abdominal Pain Nausea Occ. After eating mo stly Specialty Diagnoses / Procedures Referred By Contac t Referred To Contact Gastroenterology Diagnoses Lower abdominal pain Procedures [place] OFFICE/OUTPATIENT [facility] MDM 60-74 MINUTES Gretel Day MD [address] [place] [address] [facility] [address] [place] [address] Referral ID Status Reason Start Date Expiration Date Visits Requested Visits Authorized [id number] Pending Review Specialty Services Required 09/19/2022 09/19/2023 1 1 Care Teams (unrecognized sec tion and content) 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 Start Date End Date Ailin Figueroa [address] [place] [phone] PCP - General Family 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 Start Date End Date Ailin Figuero[place] [phone] PCP - General Family 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 Start Date End Date Ailin Figuero[place] [address] PCP - General Family 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 Start Date End Date Ailin Figuero[place] [address] PCP - General Family 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 Start Date End Date Ailin Figuero[place] [address] PCP - General Family 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 Start Date End Date Ailin Figuero[place] [address] PCP - General Family 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 [employer] [facility]. provides no warranty or guarantee of the accuracy or completeness of information in this document.
[2023-06-28 08:12] LABS: Haptoglobin 66 mg/dL (33-278)
== END | disposition home or self-care (01) ==
LOC: BFHLAB 16:31
PROVIDERS: PCP Family Medicine; Visit Provider Family Medicine
DX: R74.8 Abnormal levels of other serum enzymes (principal)
CPT/HCPCS: 36415; 80076; 82977; 83010; 83615

== ENCOUNTER → 2023-07-19 | Outpatient (CLI) | payer BC, SELFPAY ==
--- NOTE | 2023-07-19 16:30 | US_ITS ---
EXAM: US PELVIS TRANSABDOMINAL AND TRANSVAGINAL, COMPLETE CLINICAL INDICATION: dysmenorrhea TECHNIQUE: Transabdominal and transvaginal pelvic ultrasound was performed with grayscale and color Doppler imaging. Transvaginal imaging was used for better evaluation of the endometrium and adnexa. COMPARISON: MRI July 31, 2022 which showed thin-walled cysts of the anterior vagina, favoring Theron duct cysts, less likely urethral diverticula. FINDINGS: VAGINA: Cystic structure noted in the vaginal canal. Elongated, these bilobed or trilobed shaped, roughly 2.8 cm x 1 cm x 1.6 cm. Overall size was estimated to be 2.7 cm x 1.2 cm x 1.7 cm on MRI July 31, 2022. Apparently stable. UTERUS/CERVIX: Unremarkable. 8.7 cm x 3 cm by Anteverted. There is no uterine mass. Normal 4.5 mm endometrial stripe thickness. RIGHT OVARY: Unremarkable. 2.7 cm x 1.8 cm x 2.1 cm. Multiple tiny follicles. Non-enlarged, normal echogenicity. Blood flow is present in the right ovary. LEFT OVARY: 2.8 cm x 2.9 cm x 2.9 cm with multiple tiny follicles, and a 1.8 cm x 1.9 cm x 2.3 cm mildly complex thick-walled cyst with some dependent low level echoes. Non-enlarged, normal echogenicity. Blood flow is present in the left ovary. FREE FLUID: Trace cul-de-sac fluid. BLADDER: Unremarkable as visualized. 6 cm x 9.1 cm x 5.9 cm, calculated volume 169 cc. Wall is normal thickness for degree of distention. US/Pelvic w/ Transvaginal IMPRESSION: 2.3 cm mildly complex left ovarian cyst, likely hemorrhagic. Not a typical appearance for endometrioma. Stable elongated cystic structure in the vagina, also noted on prior MRI. Electronically Signed: Ginger Daugherty MD at 3:40 EST ,
--- OUTSIDE RECORDS SUMMARY | 2023-07-19 22:44 | XMS RPT_ITS | CCD ---
Author Name Unknown Address [address] [place] [address] Organization [facility] Care Team Providers Care Dinking Machine Operator Name Role Phone LIA MCDONALD (MULTIMEDIA ASSISTANT) Unavailable Unavailable Ailin Figueroa Primary Care Provider [phone] Ailin Figueroa Primary Care Provider [phone] HENRY, AILIN Primary Care Unavailable GRETEL DAY Referring Unavailable KOBI DIAZ Attending Unavailable AILIN FIGUEROA Primary Care Unavailable GRETEL DAY Attending Unavailable CASS STEIN Referring Unavaila ble HENRY AILIN Primary Care Unavailable Allergies Allergy Classification Reported Allergen(s) Allergy Type Date of Onset Reaction(s) Facility (20 sources) Penicillins; Translations: [PENICILLINS] Propensity to adverse reactions to drug (disorder) 4 Hives, Other, Rash [facility] Repository (1 source) Seasonal allergy; Translations: [SEASONAL ALLERGIES] Propensity to adverse reactions (disorder) 4 AOF [facility] Repository (20 sources) beta Sitosterol / ZINC CITRATE Drug Allergy [address] [facility] (20 sources) Other Allergy to substance 4 Other [facility] Medications Current Medications Medication Drug Class(es) Dates [...] temperature 97.5 [degF] Ailin Figueroa Work Phone: [facility] 11-07-2022 09:49-0400 Diastolic blood pressure 51 mm[Hg] Ailin Melloys Work Phone: [facility] 11-07-2022 09:49-0400 Heart rate 75 /min Ailin Melloys Work Phone: [facility] 11-07-2022 09:49-0400 Respiratory rate 16 /min Ailin Melloys Work Phone: [facility] 11-07-2022 09:49-0400 SaO2% (BldA) [Mass fraction] 98 % Ailin Henry Work Phone: [facility] 11-07-2022 09:49-0400 Systolic blood pressure 94 mm[Hg] Ailin Melloys Work Phone: [facility] 11-07-2022 08:22-0400 Body height 165.1 cm Ailin Melloys Work Phone: [facility] 11-07-2022 08:22-0400 Body mass index (BMI) [Ratio] 19.8 kg/m2 Ailin Melloys Work Phone: [facility] 11-07-2022 08:22-0400 Body weight 53.98 kg Ailin Melloys Work Phone: [facility] 10-09-2022 09:11-0400 Body height 165.1 cm Kobi Maximeer BLOOD BANK CALENDAR CONTROL CLERK - INDUSTRIAL MAINTENANCE MANAGER Work Phone: [facility] 10-09-2022 09:11-0400 Body mass index (BMI) [Ratio] 20.07 kg/m2 Kobi Forester BLOOD BANK CALENDAR CONTROL CLERK - INDUSTRIAL MAINTENANCE MANAGER Work Phone: [facility] 10-09-2022 09:11-0400 Body weight 54.7 kg Kobi Glamiter BLOOD BANK CALENDAR CONTROL CLERK - INDUSTRIAL MAINTENANCE MANAGER Work Phone: [facility] 10-09-2022 09:11-0400 Diastolic blood pressure 79 mm[Hg] Kobi Glamiter BLOOD BANK CALENDAR CONTROL CLERK - INDUSTRIAL MAINTENANCE MANAGER Work Phone: [facility] 10-09-2022 09:11-0400 Heart rate 68 /min Kobi Diaz BLOOD BANK CALENDAR CONTROL CLERK - INDUSTRIAL MAINTENANCE MANAGER Work Phone: [facility] 10-09-2022 09:11-0400 Systolic blood pressure 118 mm[Hg] Kboi Galvez PRN - INDUSTRIAL MAINTENANCE MANAGER Work Phone: [facility] Encounters Encounter Date Encounter Type Care Provider Facility Start: 11-07-2022 End: 11-08-2022 ambulatory AILIN HENRY [facility] Start: 11-07-2022 End: 11-07-2022 Subsequent hospital visit by physician Ailin Figueroa Work Phone: [facility] Procedures Date Procedure Procedure Detail Performing Clinician Start: 11-07-2022 Urine test visual color cmprsn meths Cristobal Day BLOOD BANK CALENDAR CONTROL CLERK - DISPLAY DECORATOR Work Phone: Plan of Treatment Date Care Activity Detail Author Start: 02-09-2046 Zoster Vaccines (1 of 2) Zoste r Vaccines (1 of 2) [facility] Start: 01-19-2023 Influenza vaccination Influenz a Vaccine (Season Ended) [facility] Start: 11-07-2022 End: 11-07-2022 Admission to [facility] day surgery center [facility] Immunizations Immunization Date Immunization Notes Care Provider Fa harrison 02-17-2020 influenza virus vacc ine, unspecified formulation Gretel Day MD Work Phone: [facility] Payers Date Payer Category Payer Unknown LENY KENDRICK CROS [employer] [id number] 2022-Present [address] [place] [address] Commercial [id number] 2022 Unknown [id number] Social History Date Type Detail Facility Start: 08-16-2022 Tobacco smoking stat us NHIS Never smoked tobacco [facility] Start: 08-16-2022 Tobacco use and exposure Smokeless t obacco non-user [facility] Start: 08-16-2022 End: 11-07-2022 Alcohol intake Current drinker of alcohol (finding) [facility] Start: 08-16-2022 End: 11-07-2022 Alcohol intake [facility] Start: 1995 Sex Assigned At Not on file [facility] Start: 09-29-2022 End: 11-07-2022 Exposure to SARS-CoV-2 (event) Not sure [facility] Tobacco smoking stat us AKIS Tobacco smoking consumption unknown [facility] Start: 10-09-2022 End: 11-07-2022 Tobacco use panel [facility] Start: 11-03-2022 Alcohol Comment social [facility] Clinical Notes 07-25-2022 to 11-07-2022 Discharge InstructionsOp Note - Ignacio Wong MD - 11/07/2022 9:31 AM EDTPreprocedure Instructions - Candi Thomas RN - 11/07/2022 9:00 AM EDTOp Note - Ignacio Wong MD - 11/07/2022 9:31 AM EDT Note Date & Type Note Facility 11-07-2022 Note Patient: Yair Mccullough Procedure Summary Date: 11/07/22 Room / Location: [facility] OR Anesthesia Start: [...] once all PACU criteria has been met. [facility] 11-07-2022 Note Patient: Yair Mccullough Procedure Summary Date: 11/07/22 Room / Location: [facility] / [facility] OR Anesthesia Start: 930 Anesthesia Stop: [...] opportunity for questions and acknowledgement of understanding. [facility] 11-07-2022 Note [facility] Pre-procedure Instructions Sleep Apnea: If yes, please bring CPAP machine May shower/brush teeth. Leave valuables/jewelry at home. No makeup, lotion, powder, deodorant or body sprays. No contact lenses No makeup, contact lenses, piercings, or dark nail american No solid food after midnight before procedure. [...] to your arrival time. Please Bring your Rental Counter Clerk's license/photo ID, insurance card, eye drops/sunglasses, inhalers if applicable If you have a Medical Power of Bow Maker Machine Tender, living will, or an advanced directive, please bring a copy with you. We are required to resuscitate and transfer you to the hospital along with your directive. [facility] 11-07-2022 Hospital Discharg e instructions Candi [...] OR CALL 911 documented in this encounter [facility] 11-07-2022 Note Attestation signed by Ignacio Wong [...] in LUQ Abdominal bloating Lower abdominal pain [facility] 11-07-2022 Miscellaneous Notes Images from the original note were not included. . [facility] [address], [address] [place] [address] Yair Mccullough 1995 ENDOSCOPY REPORT ESOPHAGOGASTRODUODENOSCOPY (EGD) [...] clinic or PCP. Judith VELA, FACG, FAGSE [facility] - Patient Pre-procedure Instructions Sleep Apnea: If yes, please bring CPAP machine May shower/brush teeth. Leave valuables/jewelry at home. No makeup, lotion, powder, deodorant or body sprays. No contact lenses No makeup, contact lenses, piercings, or dark nail american No solid food after midnight before procedure. [...] to your arrival time. Please Bring your Rental Counter Clerk's license/photo ID, insurance card, eye drops/sunglasses, inhalers if applicable If you have a Medical Power of Bow Maker Machine Tender, living will, or an advanced directive, please bring a copy with you. We are required to resuscitate and transfer you to the hospital along with your directive. documented in this encounter [facility] 11-07-2022 Note Formatting of this n ote might be different from the original. Images from the original note were not included. . [facility] [address], [address] [place] [address] Yair Mccullough 1995 ENDOSCOPY REPORT ESOPHAGOGASTRODUODENOSCOPY (EGD) [...] clinic or PCP. Judith VELA, FACG, FAGSE [facility] Work Phone: 11-07-2022 Note Formatting of this n ote might be different from the original. Images from the original note were not included. . [facility] [address], [address] [place] [address] Yair Mccullough 1995 ENDOSCOPY REPORT ESOPHAGOGASTRODUODENOSCOPY (EGD) [...] clinic or PCP. Judith VELA, FACG, FAGSE [facility] Phone: 11-07-2022 Note Formatting of this n ote might be different from the original. [facility] - Patient Pre-procedure Instructions Sleep Apnea: If yes, please bring CPAP machine May shower/brush teeth. Leave valuables/jewelry at home. No makeup, lotion, powder, deodorant or body sprays. No contact lenses No makeup, contact lenses, piercings, or dark nail american No solid food after midnight before procedure. [...] to your arrival time. Please Bring your Rental Counter Clerk's license/photo ID, insurance card, eye drops/sunglasses, inhalers if applicable If you have a Medical Power of Bow Maker Machine Tender, living will, or an advanced directive, please bring a copy with you. We are required to resuscitate and transfer you to the hospital along with your directive. [facility] 11-07-2022 Note Formatting of this n ote might be different from the original. [facility] - Patient Pre-procedure Instructions Sleep Apnea: If yes, please bring CPAP machine May shower/brush teeth. Leave valuables/jewelry at home. No makeup, lotion, powder, deodorant or body sprays. No contact lenses No makeup, contact lenses, piercings, or dark nail american No solid food after midnight before procedure. [...] to your arrival time. Please Bring your Rental Counter Clerk's license/photo ID, insurance card, eye drops/sunglasses, inhalers if applicable If you have a Medical Power of Bow Maker Machine Tender, living will, or an advanced directive, please bring a copy with you. We are required to resuscitate and transfer you to the hospital along with your directive. [facility] 11-07-2022 History and physical note Subjective Yair [...] proceed with planned procedure. Judith VELA Gastroenterology [facility] 11-07-2022 History and physical note Subjective Yair [...] Judith VELA Gastroenterology documented in this encounter [facility] 11-06-2022 Note Patient: Yair Mccullough Procedure Information Date/Time: 11/07/22 0900 Procedure: EGD DIAGNOSTIC - EGD 30 mins Location: [facility] / [facility] Surgeons: [...] found for this or any previous visit. [facility] 10-09-2022 History of Presen t illness Narrative Images from the original note were not included. [facility] [address] [address] Dept: [phone] Dept Loc: [phone] Visit type: New Reason for Visit: Bloated, [...] and Summarized Labs: Imaging/Testin07/31/2022 MRI Pelvis (in [facility]) VINNIE Blevins 10:31 AM 10/09/22 documented in this encounter [facility] 10-09-2022 Instructions Richard Carter - 10/09/2022 9:20 AM EDT --Please call office with any questions or concerns! [phone] --recommend low FODMAP diet --Schedule EGD (upper endoscopy) for further evaluation of the symptoms.Scheduled on 11/07/2022 at 9:[address] Angeles in [place], Arrive at 8:00 am CASE#[id number] --Begin medication: famotidine 20 mg two times [...] be sent through Care Everywhere.Upper GI Endoscopy (Spanish)Gas and Bloating (Spanish)documented in this encounter [facility] 09-19-2022 Note Addended by: GRETEL DAY on: 09/19/2022 02:33 PM Modules accepted: Orders [facility] 09-19-2022 Note Addended by: GRETEL DAY on: 09/19/2022 02:33 PM Modules accepted: Orders [facility] 09-19-2022 Miscellaneous Notes Addended by: GRETEL DAY [...] patient and reviewed that I will call [facility] in scheduling the patient for the procedure. I was transferred to scheduling and was advised to fax the order and they will call the patient to schedule the appointment, however we need to see if her insurance requires a prior authorization. I spoke with Yair and notified her that [facility] will be calling her for the appointment. Patient acknowledged. We will call the patient's insurance to verify if prior authorization is indicated. Has VCUG been done at [place]? Please follow up with patient and obtain results from [place]. Gretel Day MD Please follow up with pt. Was she able to schedule VCUG in [place]? Gretel Day MD Addended by: GRETEL DAY on: 08/25/2022 11:36 AM Modules accepted: Orders Called and spoke with pt. MRI results reviewed and discussed. 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 Pt prefers to schedule at [facility]. Gretel Day MD Called pt to discuss. No answer. Left message to return my call. Gretel Day MD Records for MRI has been scanned in media. Thank you. documented in this encounter [facility] 09-19-2022 Telephone encounter Note Discussed results with [...] abdominal pain. Referral placed. Gretel Day MD [facility] 09-19-2022 Telephone encounter Note Results scanned. [facility] 09-18-2022 Telephone encounter Note Pt states she had this done last Sunday. I send ROR request for VCUG. Thanks. [facility] 09-18-2022 Miscellaneous Notes Pt states she had this done last Sunday. I send ROR request for VCUG. Thanks. Please confirm with patient that her VCUG has been scheduled. Please obtain results when available. Gretel Day MD No Auth required for testing I spoke with the patient and reviewed that I will call [facility] in scheduling the patient for the procedure. I was transferred to scheduling and was advised to fax the order and they will call the patient to schedule the appointment, however we need to see if her insurance requires a prior authorization. I spoke with Yair and notified her that [facility] will be calling her for the appointment. Patient acknowledged. We will call the patient's insurance to verify if prior authorization is indicated. Has VCUG been done at [place]? Please follow up with patient and obtain results from [place]. Gretel Day MD Please follow up with pt. Was she able to schedule VCUG in [place]? Gretel Day MD Addended by: GRETEL DAY on: 08/25/2022 11:36 AM Modules accepted: Orders Called and spoke with pt. MRI results reviewed and discussed. 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 Pt prefers to schedule at [facility]. Gretel Day MD Called pt to discuss. No answer. Left message to return my call. Gretel Day MD Records for MRI has been scanned in media. Thank you. documented in this encounter [facility] 09-18-2022 Telephone encounter Note Please confirm with patient that her VCUG has been scheduled. Please obtain results when available. Gretel Day MD [facility] 09-11-2022 Telephone encounter Note No Auth required for testing [facility] 09-11-2022 Miscellaneous Notes No Auth required for testing I spoke with the patient and reviewed that I will call [facility] in scheduling the patient for the procedure. I was transferred to scheduling and was advised to fax the order and they will call the patient to schedule the appointment, however we need to see if her insurance requires a prior authorization. I spoke with Yair and notified her that [facility] will be calling her for the appointment. Patient acknowledged. We will call the patient's insurance to verify if prior authorization is indicated. Has VCUG been done at [place]? Please follow up with patient and obtain results from [place]. Gretel Day MD Please follow up with pt. Was she able to schedule VCUG in [place]? Gretel Day MD Addended by: GRETEL DAY on: 08/25/2022 11:36 AM Modules accepted: Orders Called and spoke with pt. MRI results reviewed and discussed. 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 Pt prefers to schedule at [facility]. Gretel Day MD Called pt to discuss. No answer. Left message to return my call. Gretel Day MD Records for MRI has been scanned in media. Thank you. documented in this encounter [facility] 09-11-2022 Telephone encounter Note I spoke with the patient and reviewed that I will call [facility] in scheduling the patient for the procedure. I was transferred to scheduling and was advised to fax the order and they will call the patient to schedule the appointment, however we need to see if her insurance requires a prior authorization. I spoke with Yair and notified her that [facility] will be calling her for the appointment. Patient acknowledged. We will call the patient's insurance to verify if prior authorization is indicated. [facility] 09-08-2022 Telephone encounter Note Has VCUG been done at [place]? Please follow up with patient and obtain results from [place]. Gretel Day MD [facility] 09-08-2022 Miscellaneous Notes Has VCUG been done at [place]? Please follow up with patient and obtain results from [place]. Gretel Day MD Please follow up with pt. Was she able to schedule VCUG in [place]? Gretel Day MD Addended by: GRETEL DAY on: 08/25/2022 11:36 AM Modules accepted: Orders Called and spoke with pt. MRI results reviewed and discussed. 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 Pt prefers to schedule at [facility]. Gretel Day MD Called pt to discuss. No answer. Left message to return my call. Gretel Day MD Records for MRI has been scanned in media. Thank you. documented in this encounter [facility] 09-01-2022 Miscellaneous Notes Please follow up with pt. Was she able to schedule VCUG in [place]? Gretel Day MD Addended by: GRETEL DAY on: 08/25/2022 11:36 AM Modules accepted: Orders Called and spoke with pt. MRI results reviewed and discussed. 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 Pt prefers to schedule at [facility]. Gretel Day MD Called pt to discuss. No answer. Left message to return my call. Gretel Day MD Records for MRI has been scanned in media. Thank you. documented in this encounter [facility] 09-01-2022 Telephone encounter Note Please follow up with pt. Was she able to schedule VCUG in [place]? Gretel Day MD [facility] 08-25-2022 Note Addended by: GRETEL DAY on: 08/25/2022 11:36 AM Modules accepted: Orders [facility] 08-25-2022 Note Addended by: GRETEL DAY on: 08/25/2022 11:36 AM Modules accepted: Orders T [facility] 08-25-2022 Note Addended by: GRETEL DAY on: 08/25/2022 11:36 AM Modules accepted: Orders T [facility] 08-25-2022 Note Addended by: GRETEL DAY on: 08/25/2022 11:36 AM Modules accepted: Orders T [facility] 08-25-2022 Note Addended by: GRETEL DAY on: 08/25/2022 11:36 AM Modules accepted: Orders T [facility] 08-25-2022 Note Addended by: GRETEL DAY on: 08/25/2022 11:36 AM Modules accepted: Orders T [facility] 08-25-2022 Note Addended by: GRETEL DAY on: 08/25/2022 11:36 AM Modules accepted: Orders T [facility] 08-25-2022 Note Addended by: GRETEL DAY on: 08/25/2022 11:36 AM Modules accepted: Orders T [facility] 08-25-2022 Note Addended by: GRETEL DAY on: 08/25/2022 11:36 AM Modules accepted: Orders [facility] 08-25-2022 Note Addended by: GRETEL DAY on: 08/25/2022 11:36 AM Modules accepted: Orders [facility] 08-25-2022 Note Addended by: GRETEL DAY on: 08/25/2022 11:36 AM Modules accepted: Orders [facility] 08-25-2022 Note Addended by: GRETEL DAY on: 08/25/2022 11:36 AM Modules accepted: Orders [facility] 08-25-2022 Note Addended by: GRETEL DAY on: 08/25/2022 11:36 AM Modules accepted: Orders [facility] 08-25-2022 Note Addended by: GRETEL DAY on: 08/25/2022 11:36 AM Modules accepted: Orders [facility] 08-25-2022 Note Addended by: GRETEL DAY on: 08/25/2022 11:36 AM Modules accepted: Orders [facility] 08-25-2022 Miscellaneous Notes Addended by: GRETEL DAY on: 08/25/2022 11:36 AM Modules accepted: Orders Called and spoke with pt. MRI results reviewed and discussed. 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 Pt prefers to schedule at [facility]. Gretel Day MD Called pt to discuss. No answer. Left message to return my call. Gretel Day MD Records for MRI has been scanned in media. Thank you. documented in this encounter [facility] 08-25-2022 Telephone encounter Note Called and spoke with pt. MRI results reviewed and discussed. 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 Pt prefers to schedule at [facility]. Gretel Day MD [facility] 08-23-2022 Telephone encounter Note Called pt to discuss. No answer. Left message to return my call. Gretel Day MD [facility] 08-23-2022 Miscellaneous Notes Called pt to discuss. No answer. Left message to return my call. Gretel Day MD Records for MRI has been scanned in media. Thank you. documented in this encounter [facility] 08-16-2022 Telephone encounter Note Records for MRI has been scanned in media. Thank you. [facility] 08-16-2022 Note Sign record release for MRI results See GI for evaluation - get referral from Dr. 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 Referral was sent to you and scanned into [employer]. Please advise. [facility] Diagnosis Vaginal cyst- Primary Other specified noninflammatory disorder of vagina Urinary frequency [facility] Diagnosis Vaginal cyst- Primary Other specified noninflammatory disorder of vagina Urinary frequency [facility] Diagnosis Vaginal cyst- Primary Other specified noninflammatory disorder of vagina Urinary frequency [facility] Diagnosis Vaginal cyst- Primary Other specified noninflammatory disorder of vagina Urinary frequency documented in this encounter [facility] note* Diagnosis Vaginal cyst- Primary Other specified noninflammatory disorder of vagina Urinary frequency Lower abdominal pain Abdominal pain, other specified site [facility] Diagnosis Postprandial abdominal pain in left upper quadrant- Primary Abdominal bloating Flatulence, eructation, and gas pain Family history of gastric cancer Lower abdominal pain Abdominal pain, other specified site Postprandial abdominal pain in left upper quadrant Abdominal bloating Flatulence, eructation, and gas pain Lower abdominal pain Abdominal pain, other specified site [facility] Diagnosis Other congenital malformations of vagina- Primary Postprandial abdominal pain in left upper quadrant Abdominal bloating Flatulence, eructation, and gas pain Lower abdominal pain Abdominal pain, other specified site [facility] this [facility] Diagnosis Postprandial abdominal pain in left upper quadrant Abdominal bloating Flatulence, eructation, and gas pain Lower abdominal pain Abdominal pain, other specified site documented in this encounter [facility] for referral (narrative)* Consultation (Routine) - Pending Review Specialty Diagnoses / Procedures Referred By Juany rubio Referred To Contact Gastroenterology Diagnoses Lower abdominal pain Procedures SD OFFICE/OUTPATIENT [facility] 60-74 MINUTES Gretel Day MD [address] [place] [address] [facility] [address] [place] [address] Referral ID Status Reason Start Date Expiration Date Visits Requested Visits Authorized [id number] Pending Review Specialty Services Required 09/19/2022 09/19/2023 1 1 [facility] (narrative[facility] Consultation (Routine) - Closed Specialty Diagnoses / Procedures Referred By Contac t Referred To Contact Urogynecology Diagnoses Other congenital malformations of vagina Procedures SD OFFICE/OUTPATIENT [facility] MDM 60-74 MINUTES Cass Stein [address] [place] [address] Gretel Day MD [address] [place] [address] Referral ID Status Reason Start Date Expiration Date V isits Requested Visits Authorized [id number] Closed Specialty Services Required 07/25/2022 07/25/2023 1 1 Link Medicine [facility] Summary Purpose Family History No Family History Records FoundNo Family History Records Found Advance Directives No Advanced Directives Records FoundNo Advanced Directives Records Found Additional Source Comments INFORMATION SOURCE (unrecogn ized section and content) DATE CREATED AUTHOR AUTHOR'S ORGANIZ ATION 11/08/[address] [facility] Reason for Visit (unrecogniz ed section and content) Reason Onset Date Comments Results 08/16/2022 Reason Comments Bloated Abdominal Pain Nausea Occ. 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 Start Date End Date Ailin Figueroa [address] [place] [phone] PCP - General Family Medicine 07/25/22 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 Start Date End Date Ailin Figuero[place] [phone] PCP - General Family Medicine 07/25/22 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 Start Date End Date Ailin Figuero[place] [address] PCP - General Family Medicine 07/25/22 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 Start Date End Date Ailin Figuero[place] [address] PCP - General Family Medicine 07/25/22 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 Start Date End Date Ailin Figuero[place] [address] PCP - General Family Medicine 07/25/22 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 Start Date End Date Ailin Figuero[place] [address] PCP - General Family Medicine 07/25/22 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 [employer] [facility]. provides no warranty or guarantee of the accuracy or completeness of information in this document.
== END | disposition home or self-care (01) ==
PROVIDERS: PCP Family Medicine; Referring Provider Obstetrics & Gynecology; Visit Provider Obstetrics & Gynecology
DX: R10.2 Pelvic and perineal pain (principal)
CPT/HCPCS: 76830; 76856

== ENCOUNTER → 2023-07-27 | Outpatient (CLI) | payer BC, SELFPAY ==
--- NOTE | 2023-07-27 08:45 | NM_ITS ---
INDICATION: Right upper quadrant pain EXAMINATION: NUCLEAR MEDICINE HEPATOBILIARY SCAN - NM Hepatobiliary Imaging with CCK TECHNIQUE: 5.7 mCi technetium 99 choletec was intravenously administered and static images were obtained. 1 uCi of CCK was slowly injected intravenously over a period of 10 minutes. COMPARISON: Abdominal ultrasound of 06/20/2023. FINDINGS: There is homogeneous uptake and excretion of the radiopharmaceutical by the liver. There is no abnormal hyperemia along the gallbladder fossa. Biliary activity is noted at 10 minutes. Bowel activity is noted at 10 minutes. Gallbladder activity is noted at 10 minutes. The calculated ejection fraction at 10 minutes is 41%. The calculated ejection fraction at 30 minutes is 49%. NM/Hepatobilliary Img w/Pharm Int IMPRESSION: Normal visualization of the gallbladder. The ejection fraction is within normal limits. Electronically Signed: Newton Proctor MD at 14:44 EST ,
--- OUTSIDE RECORDS SUMMARY | 2023-07-27 09:03 | XMS RPT_ITS | CCD ---
Author Name Unknown Address [address] [place] [address] Organization [facility] Care Team Providers Care 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 Name Role Phone LIA MCDONALD (RECTANGULAR TANK COOPER) Unavailable Unavailable Ailin Figueroa Primary Care Provider [phone] Ailin Figueroa Primary Care Provider [phone] HENRY, AILIN Primary Care Unavailable GRETEL DAY Referring Unavailable KOBI DIAZ Attending Unavailable AILIN FIGUEROA Primary Care Unavailable GRETEL DAY Attending Unavailable CASS STEIN Referring Unavaila ble HENRY AILIN Primary Care Unavailable Allergies Allergy Classification Reported Allergen(s) Allergy Type Date of Onset Reaction(s) Facility (20 sources) Penicillins; Translations: [PENICILLINS] Propensity to adverse reactions to drug (disorder) 4 Hives, Other, Rash [facility] Repository (1 source) Seasonal allergy; Translations: [SEASONAL ALLERGIES] Propensity to adverse reactions (disorder) 4 AOF [facility] Repository (20 sources) beta Sitosterol / ZINC CITRATE Drug Allergy 4 Other [facility] (20 sources) Other Allergy to substance 4 Other [facility] Medications Current Medications Medication Drug [...] temperature 97.5 [degF] Ailin Figueroa Work Phone: [facility] 11-07-2022 09:49-0400 Diastolic blood pressure 51 mm[Hg] Ailin Mleloys Work Phone: [facility] 11-07-2022 09:49-0400 Heart rate 75 /min Ailin Melloys Work Phone: [facility] 11-07-2022 09:49-0400 Respiratory rate 16 /min Ailin Melloys Work Phone: [facility] 11-07-2022 09:49-0400 SaO2% (BldA) [Mass fraction] 98 % Ailin Henry Work Phone: [facility] 11-07-2022 09:49-0400 Systolic blood pressure 94 mm[Hg] Ailin Melloys Work Phone: [facility] 11-07-2022 08:22-0400 Body height 165.1 cm Ailin Melloys Work Phone: [facility] 11-07-2022 08:22-0400 Body mass index (BMI) [Ratio] 19.8 kg/m2 Ailin Melloys Work Phone: [facility] 11-07-2022 08:22-0400 Body weight 53.98 kg Ailin Melloys Work Phone: [facility] 10-09-2022 09:11-0400 Body height 165.1 cm Kobi Maximeer INSURANCE SALES ASSISTANT - ACCOUNTS PAYABLE ANALYST Work Phone: [facility] 10-09-2022 09:11-0400 Body mass index (BMI) [Ratio] 20.07 kg/m2 Kobi Forester INSURANCE SALES ASSISTANT - ACCOUNTS PAYABLE ANALYST Work Phone: [facility] 10-09-2022 09:11-0400 Body weight 54.7 kg Kobi SnowShoe Stamper INSURANCE SALES ASSISTANT - ACCOUNTS PAYABLE ANALYST Work Phone: [facility] 10-09-2022 09:11-0400 Diastolic blood pressure 79 mm[Hg] Kobi SnowShoe Stamper INSURANCE SALES ASSISTANT - ACCOUNTS PAYABLE ANALYST Work Phone: [facility] 10-09-2022 09:11-0400 Heart rate 68 /min Kobi Diaz INSURANCE SALES ASSISTANT - ACCOUNTS PAYABLE ANALYST Work Phone: [facility] 10-09-2022 09:11-0400 Systolic blood pressure 118 mm[Hg] Kobi Galvez PRN - ACCOUNTS PAYABLE ANALYST Work Phone: [facility] Encounters Encounter Date Encounter Type Care Provider Facility Start: 11-07-2022 End: 11-08-2022 ambulatory AILIN HENRY [facility] Start: 11-07-2022 End: 11-07-2022 Subsequent hospital visit by physician Ailin Figueroa Work Phone: [facility] Procedures Date Procedure Procedure Detail Performing Clinician Start: 11-07-2022 Urine test visual color cmprsn meths Cristobal Day INSURANCE SALES ASSISTANT - REMOTE ENCODING CENTER MANAGER Work Phone: Plan of Treatment Date Care Activity Detail Author Start: 02-09-2046 Zoster Vaccines (1 of 2) Zoste r Vaccines (1 of 2) [facility] Start: 01-19-2023 Influenza vaccination Influenz a Vaccine (Season Ended) [facility] Start: 11-07-2022 End: 11-07-2022 Admission to same day surgery center [facility] Immunizations Immunization Date Immunization Notes Care Provider Fa harrison 02-17-2020 influenza virus vacc ine, unspecified formulation Gretel Day MD Work Phone: [facility] Payers Date Payer Category Payer Unknown LENY KENDRICK CROS S [employer] [id number] 2022-Present [address] [place] [address] Commercial [id number] 2022 Unknown [id number] Social History Date Type Detail Facility Start: 08-16-2022 Tobacco smoking stat us NHIS Never smoked tobacco [facility] Start: 08-16-2022 Tobacco use and exposure Smokeless t obacco non-user [facility] Start: 08-16-2022 End: 11-07-2022 Alcohol intake Current drinker of alcohol (finding) [facility] Start: 08-16-2022 End: 11-07-2022 Alcohol intake [facility] Start: 1995 Sex Assigned At Not on file [facility] Start: 09-29-2022 End: 11-07-2022 Exposure to SARS-CoV-2 (event) Not sure [facility] Tobacco smoking stat us WVIS Tobacco smoking consumption unknown [facility] Start: 10-09-2022 End: 11-07-2022 Tobacco use panel [facility] Start: 11-03-2022 Alcohol Comment social [facility] Clinical Notes 07-25-2022 to 11-07-2022 Discharge InstructionsOp Note - Ignacio Wong MD - 11/07/2022 9:31 AM EDTPreprocedure Instructions - Candi Thomas RN - 11/07/2022 9:00 AM EDTOp Note - Ignacio Wong MD - 11/07/2022 9:31 AM EDT Note Date & Type Note Facility 11-07-2022 Note Patient: Yair Mccullough Procedure Summary Date: 11/07/22 Room / Location: [facility] OR Anesthesia Start: [...] once all PACU criteria has been met. [facility] 11-07-2022 Note Patient: Yair Mccullough Procedure Summary Date: 11/07/22 Room / Location: [facility] / [facility] Anesthesia Start: 930 Anesthesia Stop: [...] opportunity for questions and acknowledgement of understanding. [facility] 11-07-2022 Note [facility] Patient Pre-procedure Instructions Sleep Apnea: If yes, please bring CPAP machine May shower/brush teeth. Leave valuables/jewelry at home. No makeup, lotion, powder, deodorant or body sprays. No contact lenses No makeup, contact lenses, piercings, or dark nail tunisian No solid food after midnight before procedure. [...] to your arrival time. Please Bring your Property Utilization Manager's license/photo ID, insurance card, eye drops/sunglasses, inhalers if applicable If you have a Medical Power of Solar Energy Installation Manager, living will, or an advanced directive, please bring a copy with you. We are required to resuscitate and transfer you to the hospital along with your directive. [facility] 11-07-2022 Hospital Discharg e instructions Candi Thomas [...] OR CALL 911 documented in this encounter [facility] 11-07-2022 Note Attestation signed by [...] in LUQ Abdominal bloating Lower abdominal pain [facility] 11-07-2022 Miscellaneous Notes Images from the original note were not included. . [facility] [address], [address] [place] [address] Yair Mccullough 1995 ENDOSCOPY REPORT ESOPHAGOGASTRODUODENOSCOPY (EGD) [...] clinic or PCP. Judith VELA, FACG, FAGSE [facility] - Patient Pre-procedure Instructions Sleep Apnea: If yes, please bring CPAP machine May shower/brush teeth. Leave valuables/jewelry at home. No makeup, lotion, powder, deodorant or body sprays. No contact lenses No makeup, contact lenses, piercings, or dark nail tunisian No solid food after midnight before procedure. [...] to your arrival time. Please Bring your Property Utilization Manager's license/photo ID, insurance card, eye drops/sunglasses, inhalers if applicable If you have a Medical Power of Solar Energy Installation Manager, living will, or an advanced directive, please bring a copy with you. We are required to resuscitate and transfer you to the hospital along with your directive. documented in this encounter [facility] 11-07-2022 Note Formatting of this n ote might be different from the original. Images from the original note were not included. . [facility] [address], [address] [place] [address] Yair Mccullough 1995 ENDOSCOPY REPORT ESOPHAGOGASTRODUODENOSCOPY (EGD) [...] clinic or PCP. Judith VELA, FACG, FAGSE [facility] Work Phone: 11-07-2022 Note Formatting of this n ote might be different from the original. Images from the original note were not included. . [facility] [address], [address] [place] [address] Yair Mccullough 1995 ENDOSCOPY REPORT ESOPHAGOGASTRODUODENOSCOPY (EGD) [...] clinic or PCP. Judith VELA, FACG, FAGSE [email or web address] Phone: 11-07-2022 Note Formatting of this n ote might be different from the original. [facility] - Patient Pre-procedure Instructions Sleep Apnea: If yes, please bring CPAP machine May shower/brush teeth. Leave valuables/jewelry at home. No makeup, lotion, powder, deodorant or body sprays. No contact lenses No makeup, contact lenses, piercings, or dark nail tunisian No solid food after midnight before procedure. [...] to your arrival time. Please Bring your Property Utilization Manager's license/photo ID, insurance card, eye drops/sunglasses, inhalers if applicable If you have a Medical Power of Solar Energy Installation Manager, living will, or an advanced directive, please bring a copy with you. We are required to resuscitate and transfer you to the hospital along with your directive. [facility] 11-07-2022 Note Formatting of this n ote might be different from the original. [facility] - Patient Pre-procedure Instructions Sleep Apnea: If yes, please bring CPAP machine May shower/brush teeth. Leave valuables/jewelry at home. No makeup, lotion, powder, deodorant or body sprays. No contact lenses No makeup, contact lenses, piercings, or dark nail tunisian No solid food after midnight before procedure. [...] to your arrival time. Please Bring your Property Utilization Manager's license/photo ID, insurance card, eye drops/sunglasses, inhalers if applicable If you have a Medical Power of Solar Energy Installation Manager, living will, or an advanced directive, please bring a copy with you. We are required to resuscitate and transfer you to the hospital along with your directive. [facility] 11-07-2022 History and physical note [...] proceed with planned procedure. Judith VELA Gastroenterology [facility] 11-07-2022 History and physical note [...] Judith VELA Gastroenterology documented in this encounter [facility] 11-06-2022 Note Patient: Yair Mccullough Procedure Information Date/Time: 11/07/22 0900 Procedure: EGD DIAGNOSTIC - EGD 30 mins Location: [facility] / [facility] Surgeons: [...] found for this or any previous visit. [facility] 10-09-2022 History of Presen t illness Narrative Images from the original note were not included. [facility] [address] [address] Dept: [phone] Dept Loc: [phone] Visit type: New Reason for Visit: Bloated, [...] and Summarized Labs: Imaging/Testin07/31/2022 MRI Pelvis (in [facility]) VINNIE Blevins 10:31 AM 10/09/22 documented in this encounter [facility] 10-09-2022 Instructions Richard Carter - 10/09/2022 9:20 AM EDT --Please call office with any questions or concerns! [phone] --recommend low FODMAP diet --Schedule EGD (upper endoscopy) for further evaluation of the symptoms.Scheduled on 11/07/2022 at 9:[address] Angeles in [place], Arrive at 8:00 am CASE#[id number] --Begin medication: famotidine 20 mg two times [...] be sent through Care Everywhere.Upper GI Endoscopy ([place])Gas and Bloating ([place])documented in this encounter [facility] 09-19-2022 Note Addended by: GRETEL DAY on: 09/19/2022 02:33 PM Modules accepted: Orders [facility] 09-19-2022 Note Addended by: GRETEL DAY on: 09/19/2022 02:33 PM Modules accepted: Orders [facility] 09-19-2022 Miscellaneous Notes Addended by: [...] patient and reviewed that I will call [facility] in scheduling the patient for the procedure. I was transferred to scheduling and was advised to fax the order and they will call the patient to schedule the appointment, however we need to see if her insurance requires a prior authorization. I spoke with Yair and notified her that [facility] will be calling her for the appointment. Patient acknowledged. We will call the patient's insurance to verify if prior authorization is indicated. Has VCUG been done at [place]? Please follow up with patient and obtain results from [place]. Gretel Day MD Please follow up with pt. Was she able to schedule VCUG in [place]? Gretel Day MD Addended by: GRETEL DAY on: 08/25/2022 11:36 AM Modules accepted: Orders Called and spoke with pt. MRI results reviewed and discussed. 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 Pt prefers to schedule at [facility]. Gretel Day MD Called pt to discuss. No answer. Left message to return my call. Gretel Day MD Records for MRI has been scanned in media. Thank you. documented in this encounter [facility] 09-19-2022 Telephone encounter Note Discussed [...] abdominal pain. Referral placed. Gretel Day MD [facility] 09-19-2022 Telephone encounter Note Results scanned. [facility] 09-18-2022 Telephone encounter Note Pt states she had this done last Sunday. I send ROR request for VCUG. Thanks. [facility] 09-18-2022 Miscellaneous Notes Pt states she had this done last Sunday. I send ROR request for VCUG. Thanks. Please confirm with patient that her VCUG has been scheduled. Please obtain results when available. Gretel Day MD No Auth required for testing I spoke with the patient and reviewed that I will call [facility] in scheduling the patient for the procedure. I was transferred to scheduling and was advised to fax the order and they will call the patient to schedule the appointment, however we need to see if her insurance requires a prior authorization. I spoke with Yair and notified her that [facility] will be calling her for the appointment. Patient acknowledged. We will call the patient's insurance to verify if prior authorization is indicated. Has VCUG been done at [place]? Please follow up with patient and obtain results from [place]. Gretel Day MD Please follow up with pt. Was she able to schedule VCUG in [place]? Gretel Day MD Addended by: GRETEL DAY on: 08/25/2022 11:36 AM Modules accepted: Orders Called and spoke with pt. MRI results reviewed and discussed. 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 Pt prefers to schedule at [facility]. Gretel Day MD Called pt to discuss. No answer. Left message to return my call. Gretel Day MD Records for MRI has been scanned in media. Thank you. documented in this encounter [facility] 09-18-2022 Telephone encounter Note Please confirm with patient that her VCUG has been scheduled. Please obtain results when available. Gretel Day MD [facility] 09-11-2022 Telephone encounter Note No Auth required for testing [facility] 09-11-2022 Miscellaneous Notes No Auth required for testing I spoke with the patient and reviewed that I will call [facility] in scheduling the patient for the procedure. I was transferred to scheduling and was advised to fax the order and they will call the patient to schedule the appointment, however we need to see if her insurance requires a prior authorization. I spoke with Yair and notified her that [facility] will be calling her for the appointment. Patient acknowledged. We will call the patient's insurance to verify if prior authorization is indicated. Has VCUG been done at [place]? Please follow up with patient and obtain results from [place]. Gretel Day MD Please follow up with pt. Was she able to schedule VCUG in [place]? Gretel Day MD Addended by: GRETEL DAY on: 08/25/2022 11:36 AM Modules accepted: Orders Called and spoke with pt. MRI results reviewed and discussed. 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 Pt prefers to schedule at [facility]. Gretel Day MD Called pt to discuss. No answer. Left message to return my call. Gretel Day MD Records for MRI has been scanned in media. Thank you. documented in this encounter [facility] 09-11-2022 Telephone encounter Note I spoke with the patient and reviewed that I will call [facility] in scheduling the patient for the procedure. I was transferred to scheduling and was advised to fax the order and they will call the patient to schedule the appointment, however we need to see if her insurance requires a prior authorization. I spoke with Yair and notified her that [facility] will be calling her for the appointment. Patient acknowledged. We will call the patient's insurance to verify if prior authorization is indicated. [facility] 09-08-2022 Telephone encounter Note Has VCUG been done at [place]? Please follow up with patient and obtain results from [place]. Gretel Day MD [facility] 09-08-2022 Miscellaneous Notes Has VCUG been done at [place]? Please follow up with patient and obtain results from [place]. Gretel Day MD Please follow up with pt. Was she able to schedule VCUG in [place]? Gretel Day MD Addended by: GRETEL DAY on: 08/25/2022 11:36 AM Modules accepted: Orders Called and spoke with pt. MRI results reviewed and discussed. 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 Pt prefers to schedule at [facility]. Gretel Day MD Called pt to discuss. No answer. Left message to return my call. Gretel Day MD Records for MRI has been scanned in media. Thank you. documented in this encounter [facility] 09-01-2022 Miscellaneous Notes Please follow up with pt. Was she able to schedule VCUG in [place]? Gretel Day MD Addended by: GRETEL DAY on: 08/25/2022 11:36 AM Modules accepted: Orders Called and spoke with pt. MRI results reviewed and discussed. 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 Pt prefers to schedule at [facility]. Gretel Day MD Called pt to discuss. No answer. Left message to return my call. Gretel Day MD Records for MRI has been scanned in media. Thank you. documented in this encounter [facility] 09-01-2022 Telephone encounter Note Please follow up with pt. Was she able to schedule VCUG in [place]? Gretel Day MD [facility] 08-25-2022 Note Addended by: GRETEL DAY on: 08/25/2022 11:36 AM Modules accepted: Orders [facility] 08-25-2022 Note Addended by: GRETEL DAY on: 08/25/2022 11:36 AM Modules accepted: Orders T [facility] 08-25-2022 Note Addended by: GRETEL DAY on: 08/25/2022 11:36 AM Modules accepted: Orders T [facility] 08-25-2022 Note Addended by: GRETEL DAY on: 08/25/2022 11:36 AM Modules accepted: Orders T [facility] 08-25-2022 Note Addended by: GRETEL DAY on: 08/25/2022 11:36 AM Modules accepted: Orders T [facility] 08-25-2022 Note Addended by: GRETEL DAY on: 08/25/2022 11:36 AM Modules accepted: Orders T [facility] 08-25-2022 Note Addended by: GRETEL DAY on: 08/25/2022 11:36 AM Modules accepted: Orders T [facility] 08-25-2022 Note Addended by: GRETEL DAY on: 08/25/2022 11:36 AM Modules accepted: Orders T [facility] 08-25-2022 Note Addended by: GRETEL DAY on: 08/25/2022 11:36 AM Modules accepted: Orders [facility] 08-25-2022 Note Addended by: GRETEL DAY on: 08/25/2022 11:36 AM Modules accepted: Orders [facility] 08-25-2022 Note Addended by: GRETEL DAY on: 08/25/2022 11:36 AM Modules accepted: Orders [facility] 08-25-2022 Note Addended by: GRETEL DAY on: 08/25/2022 11:36 AM Modules accepted: Orders [facility] 08-25-2022 Note Addended by: GRETEL DAY on: 08/25/2022 11:36 AM Modules accepted: Orders [facility] 08-25-2022 Note Addended by: GRETEL DAY on: 08/25/2022 11:36 AM Modules accepted: Orders [facility] 08-25-2022 Note Addended by: GRETEL DAY on: 08/25/2022 11:36 AM Modules accepted: Orders [facility] 08-25-2022 Miscellaneous Notes Addended by: GRETEL DAY on: 08/25/2022 11:36 AM Modules accepted: Orders Called and spoke with pt. MRI results reviewed and discussed. 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 Pt prefers to schedule at [facility]. Gretel Day MD Called pt to discuss. No answer. Left message to return my call. Gretel Day MD Records for MRI has been scanned in media. Thank you. documented in this encounter [facility] 08-25-2022 Telephone encounter Note Called and spoke with pt. MRI results reviewed and discussed. 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 Pt prefers to schedule at [facility]. Gretel Day MD [facility] 08-23-2022 Telephone encounter Note Called pt to discuss. No answer. Left message to return my call. Gretel Day MD [facility] 08-23-2022 Miscellaneous Notes Called pt to discuss. No answer. Left message to return my call. Greetl Day MD Records for MRI has been scanned in media. Thank you. documented in this encounter [facility] 08-16-2022 Telephone encounter Note Records for MRI has been scanned in media. Thank you. [facility] 08-16-2022 Note Sign record release for MRI results See GI for evaluation - get referral from Dr. 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 Referral was sent to you and scanned into [facility]. Please advise. [facility] Diagnosis Vaginal cyst- Primary Other specified noninflammatory disorder of vagina Urinary frequency [facility] Diagnosis Vaginal cyst- Primary Other specified noninflammatory disorder of vagina Urinary frequency [facility] Diagnosis Vaginal cyst- Primary Other specified noninflammatory disorder of vagina Urinary frequency [facility] Diagnosis Vaginal cyst- Primary Other specified noninflammatory disorder of vagina Urinary frequency documented in this encounter [facility] note* Diagnosis Vaginal cyst- Primary Other specified noninflammatory disorder of vagina Urinary frequency Lower abdominal pain Abdominal pain, other specified site [facility] Diagnosis Postprandial abdominal pain in left upper quadrant- Primary Abdominal bloating Flatulence, eructation, and gas pain Family history of gastric cancer Lower abdominal pain Abdominal pain, other specified site Postprandial abdominal pain in left upper quadrant Abdominal bloating Flatulence, eructation, and gas pain Lower abdominal pain Abdominal pain, other specified site [facility] encounter [facility] Diagnosis Other congenital malformations of vagina- Primary Postprandial abdominal pain in left upper quadrant Abdominal bloating Flatulence, eructation, and gas pain Lower abdominal pain Abdominal pain, other specified site [facility] this encounter [facility] Diagnosis Postprandial abdominal pain in left upper quadrant Abdominal bloating Flatulence, eructation, and gas pain Lower abdominal pain Abdominal pain, other specified site documented in this encounter [facility] for referral (narrative)* Consultation (Routine) - Pending Review Specialty Diagnoses / Procedures Referred By Juany rubio Referred To Contact Gastroenterology Diagnoses Lower abdominal pain Procedures [place] [facility] 60[facility]74 [facility]UTES Gretel Day MD [address] [place] [address] [facility] [address] [place] [address] Referral ID Status Reason Start Date Expiration Date Visits Requested Visits Authorized [id number] Pending Review Specialty Services Required 09/19/2022 09/19/2023 1 1 [employer] [facility] (narrative)* Consultation (Routine) - Closed Specialty Diagnoses / Procedures Referred By Contac t Referred To Contact Urogynecology Diagnoses Other congenital malformations of vagina Procedures [place] OFFICE/OUTPATIENT [facility] MDM 60-74 MINUTES Cass Stein [address] [place] [address] Gretel Day MD [address] [place] [address] Referral ID Status Reason Start Date Expiration Date V isits Requested Visits Authorized [id number] Closed Specialty Services Required 07/25/2022 07/25/2023 1 1 [employer] [facility] Summary Purpose Family History No Family History Records FoundNo Family History Records Found Advance Directives No Advanced Directives Records FoundNo Advanced Directives Records Found Additional Source Comments INFORMATION SOURCE (unrecogn ized section and content) DATE CREATED AUTHOR AUTHOR'S ORGANIZ ATION 11/08/2022 [facility] [employer] [facility] Reason for Visit (unrecogniz ed section and content) Reason Onset Date Comments Results 08/16/2022 Reason Comments Bloated Abdominal Pain Nausea Occ. 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 Relationship Specialty Start Date End Date Ailin Figueroa [address] [place] [phone] PCP - General Family Medicine 07/25/22 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 Relationship Specialty Start Date End Date Ailin Figuero[place] [place] [phone] PCP - General Family Medicine 07/25/22 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 Relationship Specialty Start Date End Date Ailin Figuero[place] [place] [address] PCP - General Family Medicine 07/25/22 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 Relationship Specialty Start Date End Date Ailin Figueroa [place] [address] PCP - General Family Medicine 07/25/22 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 Relationship Specialty Start Date End Date Ailin Figuero[place] [place] [address] PCP - General Family Medicine 07/25/22 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 Relationship Specialty Start Date End Date Ailin Figueroa [place] [address] PCP - General Family Medicine 07/25/22 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 [employer] [facility]. provides no warranty or guarantee of the accuracy or completeness of information in this document.
== END | disposition home or self-care (01) ==
PROVIDERS: PCP Family Medicine; Referring Provider Internal Medicine; Visit Provider Internal Medicine
DX: R10.11 Right upper quadrant pain (principal)
CPT/HCPCS: 78227; A9537; J2805; J3490

== ENCOUNTER 2023-08-23 23:00 | Emergency (ER) | payer BC, SELFPAY ==
[2023-08-23 23:02] VITALS: BP 112/64; PULSE 98; RESP 16; TEMP 36.7; O2SAT 96; BMI 19.3
--- NOTE | 2023-08-23 23:18 | RAD_ITS ---
EXAM: XR ABDOMEN, 2 VIEWS AND XR CHEST, 1 VIEW CLINICAL INDICATION: pain TECHNIQUE: Frontal view of the chest, frontal view of the abdomen/pelvis and upright or decubitus view of the abdomen. COMPARISON: CT abdomen and pelvis, 04/15/2018. FINDINGS: CHEST: LUNGS AND PLEURAL SPACES: No significant abnormality. No consolidation or edema. No pneumothorax. No effusion. HEART: No significant abnormality. Cardiac silhouette not enlarged. MEDIASTINUM: Central airways and mediastinal contour are unremarkable. ABDOMEN: INTRAPERITONEAL SPACE: No free air. GASTROINTESTINAL TRACT: No significant abnormality. Non-obstructive. No bowel or stomach distention. ORGANS: Normal as visualized. No organomegaly. No abnormal calcifications. TUBES, LINES AND DEVICES: None. BONES/JOINTS: No significant findings. SOFT TISSUES: No significant findings. RAD/Acute Abdomen Inc Chest IMPRESSION: Negative chest and abdominal series. No evidence of free air or other acute pathology. Electronically Signed: Dionicio Carter DO at 23:45 EDT ,
[2023-08-23] MEDS: 0.9% Normal Saline (1000mL) 1,000 ML 999 ML IV (23:21)
[2023-08-23 23:33] LABS: Absolute Lymphocyte Count 0.46 X10^3/uL (0.83-4.51); Absolute Neutrophil Count 8.8 X10^3/uL (2.0-7.7); Basophil# 0.03 X10^3/uL; Basophil% 0.3 % (0-1); Eosinophil# 0.01 X10^3/uL; Eosinophils% 0.1 % (0-5); Hemoglobin 14.4 g/dL (12.0-15.0); Lymphocyte # 0.46 X10^3/ul (0.83-4.51); Lymphocyte % 4.7 % (19-41); Mean Corp Hgb Conc 34.3 g/dL (32-36); Mean Corpuscular Hgb 29.4 pg (27.0-32.0); Mean Corpuscular Volume 85.7 fL (81-99); Mean Platelet Vol. 9.9 fl (6.2-12.0); Monocyte# 0.42 X10^3/uL; Monocyte% 4.3 % (0-10); NRBC Flagged by Analyzer 0 % (0-5); Neutrophil # 8.83 X10^3/uL (2.7-7.7); Neutrophil % 90.3 % (47-70); POSITIVE DIFFERENTIAL YES; Platelet Count 186 K/mm3 (150-450); RBC Distribution Width CV 11.8 % (11.6-14.6); RBC Distribution Width SD 36.7 fl (35.1-43.9); White Blood Count 9.8 K/mm3 (4.4-11.0)
[2023-08-23 23:44] LABS: Mucous, Urine 0 SEEN /hpf (<or=2+); Red Blood Cells-Urine 0 SEEN /hpf (0-5); White Blood Cells 0 SEEN /hpf (0-5)
[2023-08-23 23:48] LABS: Color, Urine Yellow (Yellow); Glucose, Dipstick Normal (Normal); Leukocyte Esterase-Dipstick Negative /ul (Negative); Nitrite-Dipstick Negative (Negative); Occult Blood-Urine Negative /ul (Negative); Protein-Dipstick Negative (Negative); Specific Gravity, Urine 1.015 (1.002-1.030); Urine Bilirubin Dipstick Negative (Negative); Urine Clarity Clear (Clear); Urine Urobilinogen Normal (Normal)
[2023-08-23 23:51] LABS: AST(SGOT) 15 U/L (15-37); Alanine Aminotransfer ALT/SGPT 17 U/L (13-56); Albumin, Serum 4.2 g/dL (3.2-5.0); Alkaline Phosphatase 91 U/L (45-117); Anion Gap 10 (5-15); BUN 12 mg/dL (7-18); BUN/Creat Ratio 14.3 RATIO (10-20); Bilirubin, Direct 0.27 mg/dL (0.00-0.30); Calcium,Total 8.8 mg/dL (8.5-10.1); Chloride 106 mmol/L (98-107); Creatinine, Serum 0.84 mg/dL (0.55-1.02); EST Glomerular Filtration Rate 87 mL/min (>60); Est Glom Filt Rate - Afr Amer 105 mL/min (>60); Estimated Creatinine Clearance 83.54 ml/min; Globulin 2.8 g/dL (2.2-4.2); Glucose 110 mg/dL (74-106); Lipase 24 U/L (13-75); Potassium 3.6 mmol/L (3.5-5.1); Sodium Level 139 mmol/L (136-145)
[2023-08-23 23:59] LABS: Ketone-Dipstick 150 mg/dl (Negative)
[2023-08-23 23:59] LABS: Lactic Acid 1.1 mmol/L (0.4-1.9)
[2023-08-24 00:28] LABS: Bacteria RARE /hpf (None Seen); Squamous Epithelial Cells - UA 0-5 SEEN /hpf (5-10)
--- NOTE | 2023-08-24 01:03 | EDS_ITS ---
HPI History of Present Illness Chief Complaint: Fever Informant: patient and spouse/S.O. Narrative Narrative: Patient is a 28-year-old female with past medical history of Gilbert's disease. She states she has been worked up for vague right-sided abdominal pain and as her previous studies have been normal she underwent a colonoscopy today. She states after returning home from the colonoscopy she has had subjective fever and contacted her surgeon who advised to come to the hospital for evaluation. [facility] Medical History (Updated 08/24/23 @ 01:[address] Kennedy Maria, DO) Asthma Back pain Chest pain [place] disease Hemorrhoids Lymphoma Neck pain Shoulder pain Home Medications spironolactone 50 mg tablet 50 mg PO DAILY #30 tabs 07/12/23 [Rx Last Taken Unknown] calcium polycarbophil 625 mg tablet (Fiber (calcium polycarbophil)) 1,250 mg PO BID 08/23/23 [History Last Taken Unknown] promethazine 25 mg tablet 25 - 50 mg PO Q4H PRN PRN nausea/vomiting 08/23/23 [History Last Taken Unknown] Allergy/AdvReac Type Severity Reaction Status Date / Time Penicillins Allergy Rash Verified 07/12/23 13:51 Family History Mother Cancer stomach cancer Grandfather Pancreatic cancer Surgical History benign 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 History of breast biopsy Social History Smoking Status: Never smoker alcohol intake: current details: social substance use type: does not use caffeine: Yes what type of physical activity do you participate in: yoga and aerobics frequency: 3-4 times per week seatbelt use: always do you feel safe at home: Yes additional social history: - [employer] Patient works at [employer] ED Constitutional Constitutional ED: Reports chills, fever(s) and subjective ENT ENT ED: Denies rhinorrhea or sore throat Cardiovascular Cardiovascular: Denies chest pain Respiratory/Chest Respiratory/Chest: Denies cough or dyspnea Gastrointestinal Gastrointestinal: Reports abdominal pain; Denies diarrhea, nausea or vomiting Genitourinary Genitourinary ED: Denies dysuria Musculoskeletal Musculoskeletal: Denies myalgias Integumentary Denies rash Neurologic Neurologic: Denies headache(s) Hematologic/Lymphatic Hematologic/Lymphatic: Denies easy bleeding or easy bruising EXAM Physical Exam Const Vital Signs: 08/23/23 23:02 Temperature 98.0 F Temperature Source Oral Pulse Rate 98 Respiratory Rate 16 Blood Pressure 112/64 Blood Pressure Mean 80 Pulse Ox 96 Oxygen Delivery Method Room Air Positive well nourished and well developed General Appearance ED: well developed HEENT HEENT Narrative: Mucous membranes are slightly dry and tacky No tongue or lip swelling no oral lesions no airway edema or compromise No findings in the posterior pharynx to suggest infection Eyes PERRL and EOMs intact bilaterally Eyes Narrative: Patient does have scleral icterus consistent with history of Gilbert's disease General Eye ED: Yes scleral icterus Neck supple Neck Narrative: No nuchal rigidity or meningeal signs noted Resp normal respiratory effort and clear to auscultation bilaterally Resp Narrative: No nasal flaring retractions tachypnea or accessory muscle use Cardio regular rate and regular rhythm Rate: other Other Details: Heart is regular rate and rhythm without murmurs rubs or gallops GI non-distended GI Narrative: Abdomen is soft and nondistended with normal active bowel sounds. Patient has mild pain on palpation of the right-sided abdomen diffusely without voluntary guarding or rigidity Auscultation: normoactive bowel sounds Palpation: soft Extremity normal to inspection Extremity Narrative: No asymmetric edema no pitting edema negative Homans' sign bilaterally Neuro oriented x3, CN's II-XII intact bilaterally and no sensory deficits noted Sensorium / Orientation: alert Motor Exam: strength 5/5 throughout Psych mental status grossly normal Skin no rashes or lesions noted and no wounds Skin Narrative: Patient does have mild jaundice noted consistent with history of Gilbert's disease Otherwise no overlying soft tissue changes to suggest infection General Skin Exam: jaundice MDM MDM MDM Narrative Medical decision making narrative: Patient arrived to the ER with a normal temperature and vital signs and states she did not take any Tylenol or Motrin prior to arrival. With her history of fever at home following colonoscopy with biopsies there is concern for perforation versus atelectasis versus coincidental UTI or viral URI such as COVID influenza or RSV. Basic blood work was obtained which showed a normal white count and lactic acid going against infection. Chest x-ray with abdominal series revealed no obvious signs of free air/perforation or lung infection. Viral swabs are negative. Urine showed dehydration without infectious changes. The patient's total bilirubin is elevated at 5.1 and chart review reveals her baseline is near 3. However this is most likely from stimulation from the procedure and I do not feel need for CT scan as white count and lactic acid are normal and vitals are stable. Patient was hydrated secondary to the ketones present in the urine indicating mild dehydration and on reevaluation remained hemodynamically stable and fever free and is therefore safe for discharge History & Record Review Discussion w/independent historian: Patient and Significant other Lab Data Attestation: I reviewed the patient's lab results. Labs: Laboratory Results - last 24 hr 08/23/23 08/23/23 23:08 23:40 WBC 9.8 RBC 4.90 Hgb 14.4 Hct 42.0 MCV 85.7 MCH 29.4 MCHC 34.3 RDW Std Deviation 36.7 RDW Coeff of Julia 11.8 Plt Count 186 MPV 9.9 Immature Gran % (Auto) 0.300 Neut % (Auto) 90.3 H Lymph % (Auto) 4.7 L [place] % (Auto) 4.3 Eos % (Auto) 0.1 Baso % (Auto) 0.3 Absolute Neuts (auto) 8.8 H Absolute Lymphs (auto) 0.46 L Nucleated RBC % 0 Sodium 139 Potassium 3.6 Chloride 106 Carbon Dioxide 23.0 Anion Gap 10 BUN 12 Creatinine 0.84 Estim Creat Clear Calc 83.54 Est GFR (MDRD) Af Amer 105 Est GFR (MDRD) Non-Af 87 BUN/Creatinine Ratio 14.3 Glucose 110 H Lactic Acid 1.1 Calcium 8.8 Total Bilirubin 5.10 H Direct Bilirubin 0.27 AST 15 ALT 17 Alkaline Phosphatase 91 Total Protein 7.0 Albumin 4.2 Globulin 2.8 Lipase 24 Urine Color Yellow Urine Clarity Clear Urine pH 5.0 Ur Specific [place] 1.015 Urine Protein Negative Urine Glucose (UA) Normal Urine Ketones 150 A* Urine Occult Blood Negative Urine Nitrite Negative Urine Bilirubin Negative Urine Urobilinogen Normal Ur Leukocyte Esterase Negative Urine RBC 0 SEEN Urine WBC 0 SEEN Ur Squamous Epith Cells 0-5 SEEN Urine Bacteria RARE Urine Mucus 0 SEEN Radiography Diagnostic Testing: Clinical Impression(s) from Imaging Studies Acute Abdomen Series 08/23/23 23:18 IMPRESSION: Negative chest and abdominal series. No evidence of free air or other acute pathology. Electronically Signed: Dionicio Carter DO at 23:45 EDT , Acute abdominal series with 1 view chest as interpreted by the emergency medicine physician reveals a nonspecific nonobstructive bowel gas pattern without free air or perforation. Chest x-ray component reveals no acute infiltrate pneumothorax or pleural effusion. Discharge Plan Triage Chief Complaint: Fever ED Provider: Kennedy Maria Dx/Rx/DC Orders Clinical Impression: Fever, Hyperbilirubinemia, Gilbert's disease, Mild dehydration Instructions: ED FUO Adult Prescriptions: No Action spironolactone 50 mg tablet 50 mg PO DAILY Qty: 30 0RF promethazine 25 mg tablet 25 - 50 mg PO Q4H PRN PRN (Reason: nausea/vomiting) Fiber (calcium polycarbophil) 625 mg tablet 1,250 mg PO BID Primary Care Provider: Ailin Figueroa Referrals: Ailin Figueroa DO [Primary Care Provider] - Activity Restrictions/Additional Instructions: Your workup today showed no obvious signs of infection indicating your fever at home was most likely atelectasis from not taking big breaths during your procedure. Your bilirubin was elevated today and this is most likely related to your underlying medical history and the fact of irritation from your recent procedure. Please continue to have this value monitored on an outpatient basis. If you have any further concerns or worsening of symptoms please return for repeat evaluation Disposition Disposition: Home, Self Care Discharge Date/Time: 08/24/23 01:11
[2023-08-24 01:09] VITALS: BP 103/74; PULSE 78; PULSE 87; RESP 16; TEMP 37.1; O2SAT 98
== END 2023-08-24 01:11 | disposition home or self-care (01) ==
PROVIDERS: Emergency Provider Emergency Medicine; PCP Family Medicine; Visit Provider Emergency Medicine
DX: R50.9 Fever, unspecified (principal); E86.0 Dehydration; E80.4 Gilbert syndrome
CPT/HCPCS: 74022; 80048; 80076; 81001; 83605; 83690; 85025; 87631; 96360; 96361; 99283; J7030; A4216

== ENCOUNTER → 2023-09-14 | Outpatient (CLI) | payer BC, SELFPAY ==
--- NOTE | 2023-09-14 13:05 | US_ITS ---
STUDY: ULTRASOUND OF THE FEMALE PELVIS - COMPLETE REASON FOR EXAM: Female, 28 years old. Monitor ovarian and vaginal cyst LMP: August 29, 2023. TECHNIQUE: Transabdominal and Transvaginal TECHNICAL QUALITY: Adequate. COMPARISON: Comparison is made with prior study dated July 19, 2023. FINDINGS: The uterus is anteverted and is in a midline position. The uterus measures 8.5 cm x 5 cm x 3.3 cm. There is a Nabothian cyst of the cervix. The endometrium measures 4.4 mm in thickness, and is hyperechoic. There is no demonstrated endometrial mass. There is no demonstrated myometrial mass. I.U.D. - The patient does not have an I.U.D. . 3 vaginal cysts are seen. The largest measures 1.7 cm x 1.7 cm x 1.1 cm. The right ovary is visualized. The right ovary measures 2.6 cm x 2.4 cm x 1.9 cm. Follicles are seen within the right ovary. There is no visualized right adnexal mass or complex lesion. There is normal arterial and normal venous vascularity. The left ovary is visualized. The left ovary measures 3.2 cm x 3.2 cm x 2.2 cm. Follicles are seen within the left ovary. There is no visualized left adnexal mass or complex lesion. There is normal arterial and normal venous vascularity. There is no fluid in the cul-de-sac. The pre void volume of the bladder was 460 ml. US/Pelvic w/ Transvaginal IMPRESSION: 3 vaginal cysts are seen as described. Small right ovarian follicles. Electronically Signed: Jorge Luis Mandujano MD at 15:13 EDT ,
== END | disposition home or self-care (01) ==
LOC: US 13:05
PROVIDERS: PCP Family Medicine; Visit Provider Obstetrics & Gynecology
DX: N83.209 Unspecified ovarian cyst, unspecified side (principal); Q52.4 Other congenital malformations of vagina
CPT/HCPCS: 76830; 76856